=== PATIENT | male | born 1960 | race African-American/Black ===

== ENCOUNTER 2017-01-19 10:37 | Emergency (ER) | payer MEDICARE, OTHER ==
[~2017-01-19] VITALS: Ht 172.7 cm; Wt 85.7 kg
[~2017-01-19 10:37] MED LIST: ALLO300T; CRESTOR10 MG; DOCU-109 PO; HYDR25TA9; INSU100I17 SQ; INSU100I18 SQ; LISI10TA2; OXYC-317 PO; OXYC1TAB9 PO; RIVA10TA PO; SENN-22 PO; WARF7.5T48 PO
--- NOTE | 2017-01-19 12:19 | PHYS DOC ---
Past Medical History Past Medical History: Diabetes-Type II, DVT, High Cholesterol, Hypertension Additional Past Medical Histor: Gout, "Protein C Def.", PE Past Surgical History: Other Additional Past Surgical Histo: IVC Filter Alcohol Use: Heavy Drug Use: None Adult General Chief Complaint Chief Complaint: LOWER EXT PAIN HPI HPI Patient is a 56 year old -[place] male who presents with left knee pain and swelling. He states it started late Wednesday night/early Wednesday morning he denies any history of trauma. He states is just his knee that hurts and he tries to bend it. He denies any fevers chills nausea or vomiting or injury to the knee. Review of Systems Review of Systems Constitutional: Denies fever or chills [] Eyes: Denies change in visual acuity, redness, or eye pain [] HENT: Denies nasal congestion or sore throat [] Respiratory: Denies cough or shortness of breath [] Cardiovascular: No additional information not addressed in HPI [] GI: Denies abdominal pain, nausea, vomiting, bloody stools or diarrhea [] : Denies dysuria or hematuria [] Musculoskeletal: Denies back pain, positive for left knee pain Integument: Denies rash or skin lesions [] Neurologic: Denies headache, focal weakness or sensory changes [] Endocrine: Denies polyuria or polydipsia [] Current Medications Current Medications Current Medications Medications (Trade) Dose Ordered Sig/Donte Start Time Stop Time Status Last Admin Dose Admin Lidocaine/Sodium Bicarbonate (Buffered Lidocaine 1%) 20 ml 1X ONCE 01/19/17 13:00 01/19/17 13:01 DC 01/19/17 13:45 20 ML Morphine Sulfate 2 mg PRN Q15MIN PRN 01/19/17 13:00 01/20/17 12:59 01/19/17 15:09 2 MG Allergies Allergies Allergies Coded Allergies Type Severity Reaction Last Updated Verified No Known Drug Allergies 06/17/13 No Physical Exam Physical Exam Constitutional: Well developed, well nourished, no acute distress, non-toxic appearance. [] HENT: Normocephalic, atraumatic, bilateral external ears normal, oropharynx moist, no oral exudates, nose normal. [] Eyes: PERRLA, EOMI, conjunctiva normal, no discharge. [] Neck: Normal range of motion, no tenderness, supple, no stridor. [] Cardiovascular:Heart rate regular rhythm, no murmur [] Lungs & Thorax: Bilateral breath sounds clear to auscultation [] Abdomen: Bowel sounds normal, soft, no tenderness, no masses, no pulsatile masses. [] Skin: Warm, dry, no erythema, no rash. [] Back: No tenderness, no CVA tenderness. [] Extremities: Tenderness to palpation with an effusion with mild warmth around the left knee, no calf pain or tenderness, dorsal pedis pulse 2+ on the left lower ext. no cyanosis, no clubbing, ROM intact, no edema. [] Neurologic: Alert and oriented X 3, normal motor function, normal sensory function, no focal deficits noted. [] Psychologic: Affect normal, judgement normal, mood normal. [] Current Patient Data Vital Signs Vital Signs Date Time Temp Pulse Resp B/P (MAP) Pulse Ox O2 Delivery O2 Flow Rate FiO2 01/19/17 14:00 82 18 151/91 (111) 98 Room Air 01/19/17 10:56 98.4 98.4 Lab Values Laboratory Tests Test 01/19/17 12:30 White Blood Count 4.4 x10^3/uL (4.0-11.0) Red Blood Count 5.56 x10^6/uL (4.30-5.70) Hemoglobin 13.4 g/dL (13.0-17.5) Hematocrit 41.3 % (39.0-53.0) Mean Corpuscular Volume 74 fL (79-100) L Mean Corpuscular Hemoglobin 24 pg (25-35) L Mean Corpuscular Hemoglobin Concent 33 g/dL (31-37) Red Cell Distribution Width 14.7 % (11.5-14.5) H Platelet Count 115 x10^3/uL (140-400) L Neutrophils (%) (Auto) 63 % (31-73) Lymphocytes (%) (Auto) 29 % (24-48) Monocytes (%) (Auto) 6 % (0-9) Eosinophils (%) (Auto) 1 % (0-3) Basophils (%) (Auto) 1 % (0-3) Neutrophils # (Auto) 2.8 x10^3uL (1.8-7.7) Lymphocytes # (Auto) 1.3 x10^3/uL (1.0-4.8) Monocytes # (Auto) 0.3 x10^3/uL (0.0-1.1) Eosinophils # (Auto) 0.1 x10^3/uL (0.0-0.7) Basophils # (Auto) 0.0 x10^3/uL (0.0-0.2) Prothrombin Time 12.7 SEC (11.7-14.0) Prothrombin Time INR 1.0 (0.8-1.1) Sodium Level 138 mmol/L (136-145) Potassium Level 4.6 mmol/L (3.5-5.1) Chloride Level 101 mmol/L (98-107) Carbon Dioxide Level 27 mmol/L (21-32) Anion Gap 10 (6-14) Blood Urea Nitrogen 11 mg/dL (8-26) Creatinine 1.1 mg/dL (0.7-1.3) Estimated GFR (Cockcroft-Gault) 84.1 Glucose Level 294 mg/dL (70-99) H Calcium Level 9.3 mg/dL (8.5-10.1) Magnesium Level 2.2 mg/dL (1.8-2.4) Total Bilirubin 0.4 mg/dL (0.2-1.0) Direct Bilirubin 0.1 mg/dL (0.0-0.2) Aspartate Amino Transferase (AST) 44 U/L (15-37) H Alanine Aminotransferase (ALT) 58 U/L (16-63) Alkaline Phosphatase 115 U/L (46-116) Total Protein 7.8 g/dL (6.4-8.2) Albumin 4.0 g/dL (3.4-5.0) Laboratory Tests 01/19/17 12:30 Laboratory Tests 01/19/17 12:30 Microbiology 01/19/17 Gram Stain - Final, Complete Microbiology 01/19/17 Gram Stain - Final, Complete EKG EKG [] Radiology/Procedures Radiology/Procedures [facility] [address] [place], [place] [id number] IMAGING REPORT Signed PATIENT: MALACHI KHAN ACCOUNT: [id number] : 1960 LOCATION: ER AGE: 56 SEX: M EXAM STATUS: REG ER ORD. PHYSICIAN: HANNA BARRERA MD REASON: swelling PROCEDURE: VENOUS LOWER EXTREMITY LEFT Left lower extremity venous duplex ultrasound 01/19/2017 Indication: Left lower extremity edema [] Comparison study: None Discussion: Sonographic evaluation of the deep veins of left lower extremity was performed. This includes grayscale imaging and color duplex imaging with spectral analysis. No evidence of deep venous thrombosis is seen. Interrogated veins are compressible and demonstrate augmentable blood flow and color Doppler imaging. Limited evaluation of the knee demonstrates no gross effusion. Impression: No evidence of deep venous thrombosis involving the left lower extremity. DICTATED and SIGNED BY: LIANET TOSCANO MD DATE: 01/19/17 1322 CC: HANNA BARRERA MD; UNKNOWN PCP NAME ~ [facility] [address] [facility] [place], [place] [id number] IMAGING REPORT Signed PATIENT: MALACHI KHAN ACCOUNT: [id number] : 1960 LOCATION: ER AGE: 56 SEX: M EXAM STATUS: REG ER ORD. PHYSICIAN: HANNA BARRERA MD REASON: pain,pt denies injury,states ER removed fluid, unable to bend without pain. PROCEDURE: KNEE LEFT 3V Knee plain films Indication: Severe knee pain with joint fluid aspiration. Unable to move or bend. Possible arthritis per patient. Denies injury or trauma. Technique: 3 views of the left knee Comparison: None Findings: No acute fracture or dislocation. Small amount of suprapatellar effusion. There is tricompartmental osteophytes with narrowing of medial compartmental joint space. Impression: 1. No acute fractures or dislocation. 2. Mild tricompartmental osteoarthritis of the knee, more so within medial joint compartment. DICTATED and SIGNED BY: RANULFO CUTLER DO DATE: 01/19/17 1440 CC: HANNA BARRERA MD; UNKNOWN PCP NAME ~ Impressions: Left knee pain Left knee effusion Course & Med Decision Making Course & Med Decision Making Pertinent Labs and Imaging studies reviewed. (See chart for details) X-ray shows arthritis of the left knee and he does have a mild effusion. The knee did not show any white blood cells or organisms per Gram stain. X-ray shows mild arthritis, ultrasound does not show any blood clots. Patient is being discharged with [place]. He's follow-up with primary care physician. Return precautions given for worsening swelling, fevers, or other concerns. Dragon Disclaimer Dragon Disclaimer This electronic medical record was generated, in whole or in part, using a voice recognition dictation system. Arthrocentesis Indication: Left knee effusion Consent: Consent given by patient. Procedure: The left knee was positioned appropriately and the landmarks were identified. Local anesthesia was for lidocaine 3 mL. The area was then prepped and draped in the usual sterile fashion. A needle was then introduced into the joint space left knee and 3 mL of clear thin red fluid. A sterile dressing was then applied to the site. The patient tolerated the procedure well. Complications: none. Departure Departure Impression: Primary Impression: Knee pain Disposition: HOME, SELF-CARE Condition: STABLE Referrals: UNKNOWN PCP NAME (PCP) Patient Instructions: Knee Pain, [id number] Additional Instructions: Your left knee had fluid in it and I removed some this fluid and sent for analysis and it doesn't show any signs of infection. You will need to take it easy for the next several days and keep an eye on it. He can take [place] which is a narcotic pain medicine as needed for pain and he can use crutches to help reduce the burning on your knee. If your knee gets swollen and more painful, hot or you develop a fever nausea or other concerns please return back to emergency department for further evaluation and treatment. You follow up with primary care physician within a week. Scripts Hydrocodone/Apap 5-325 (NORCO 5-325 TABLET) 1 Each Tablet 1 TAB PO PRN Q6HRS Y for PAIN, #15 TAB 0 Refills Prov: HANNA BARRERA MD 01/19/17 Problem Qualifiers Primary Impression: Knee pain Chronicity: acute Laterality: left Qualified Codes: M25.562 - Pain in left knee HANNA BARRERA MD Jan 19, 2017 12:19
[2017-01-19 12:49] LABS: BASO % 1 % (0-3); EOS % 1 % (0-3); HEMATOCRIT 41.3 % (39.0-53.0); HEMOGLOBIN 13.4 g/dL (13.0-17.5); LYMPH # 1.3 x10^3/uL (1.0-4.8); LYMPH % 29 % (24-48); MEAN CORPUSCULAR HEMOGLOBIN 24 pg (25-35); MEAN CORPUSCULAR HGB CONC 33 g/dL (31-37); MEAN CORPUSCULAR VOLUME 74 fL (79-100); MONO % 6 % (0-9); NEUT % 63 % (31-73); PLATELET COUNT 115 x10^3/uL (140-400); RED BLOOD COUNT 5.56 x10^6/uL (4.30-5.70); RED CELL DISTRIBUTION WIDTH 14.7 % (11.5-14.5); WHITE BLOOD COUNT 4.4 x10^3/uL (4.0-11.0)
[2017-01-19 12:58] LABS: CALCIUM 9.3 mg/dL (8.5-10.1); CREATININE 1.1 mg/dL (0.7-1.3); GFR 84.1; POTASSIUM 4.6 mmol/L (3.5-5.1); PROTHROMBIN TIME PATIENT 12.7 SEC (11.7-14.0)
[2017-01-19] MEDS ORDERED: LIDOCAINE 1% / SOD BICARB 8.4% 20 ML VIAL. IJ ONE (13:00)
[2017-01-19 13:08] LABS: DIRECT BILIRUBIN 0.1 mg/dL (0.0-0.2); MAGNESIUM 2.2 mg/dL (1.8-2.4); TOTAL BILIRUBIN 0.4 mg/dL (0.2-1.0); TOTAL PROTEIN 7.8 g/dL (6.4-8.2)
[2017-01-19] MEDS: MORPHINE SULFATE 4 MG/ML DISP.SYRIN. IV/SQ PRN ×3 (13:20→15:09)
--- NOTE | 2017-01-19 13:27 | RAD ---
Left lower extremity venous duplex ultrasound 01/19/2017 Indication: Left lower extremity edema [] Comparison study: None Discussion: Sonographic evaluation of the deep veins of left lower extremity was performed. This includes grayscale imaging and color duplex imaging with spectral analysis. No evidence of deep venous thrombosis is seen. Interrogated veins are compressible and demonstrate augmentable blood flow and color Doppler imaging. Limited evaluation of the knee demonstrates no gross effusion. Impression: No evidence of deep venous thrombosis involving the left lower extremity.
--- NOTE | 2017-01-19 14:45 | RAD ---
Knee plain films Indication: Severe knee pain with joint fluid aspiration. Unable to move or bend. Possible arthritis per patient. Denies injury or trauma. Technique: 3 views of the left knee Comparison: None Findings: No acute fracture or dislocation. Small amount of suprapatellar effusion. There is tricompartmental osteophytes with narrowing of medial compartmental joint space. Impression: 1. No acute fractures or dislocation. 2. Mild tricompartmental osteoarthritis of the knee, more so within medial joint compartment.
[2017-01-19 15:30] VITALS: BP 119/68
[2017-01-19] MEDS ORDERED: HYDR-971 PO (15:31)
== END 2017-01-19 15:47 | disposition home or self-care (01) ==
LOC: ER 10:37
DX: M25.562 Pain in left knee (principal); M25.462 Effusion, left knee; M17.9 Osteoarthritis of knee, unspecified; I10 Essential (primary) hypertension; E11.9 Type 2 diabetes mellitus without complications; E78.00 Pure hypercholesterolemia, unspecified; M10.9 Gout, unspecified; Z86.711 Personal history of pulmonary embolism
CPT/HCPCS: 20610; 36415; 73562; 80048; 80076; 83735; 85025; 85610; 87071; 87075; 87205; 89060; 93971; 96374; 96376; 99285; J2270

== ENCOUNTER 2017-02-01 08:58 | Emergency (ER) | payer MEDICARE, OTHER ==
[~2017-02-01] VITALS: Ht 172.7 cm; Wt 85.7 kg
[~2017-02-01 08:58] MED LIST changes: +HYDR-971 PO
[2017-02-01] MEDS ORDERED: HYDROcodone/APAP 5/325MG 1 TAB TABLET PO ONE (09:30)
[2017-02-01] MEDS ORDERED: HYDR-2758 PO (09:47)
--- NOTE | 2017-02-01 09:47 | PHYS DOC ---
Past Medical History Past Medical History: Diabetes-Type II, DVT, High Cholesterol, Hypertension Additional Past Medical Histor: Gout, "Protein C Def.", PE Past Surgical History: Other Additional Past Surgical Histo: IVC Filter Alcohol Use: Heavy Drug Use: None Adult General Chief Complaint Chief Complaint: LOWER EXT PAIN HPI HPI 56-year-old male presenting to the emergency department today with knee pain in the left knee and hip pain. The pain is been present for 2 weeks. It is worse with walking and improved with rest. It is mild nonradiating intermittent. He has a history of DVT and has an IVC filter in place. He was seen for this same pain 2 weeks ago for which he had x-rays that were unremarkable and ultrasound that was negative and an arthrocentesis was performed which did not show any sign evidence of septic arthritis. I reviewed the patient's culture which was negative. Gram stain negative. Positive for hemarthrosis possibly 2/2 procedure. Review of systems is negative for fevers chills chest pain shortness of breath abdominal pain nausea vomiting. All other review of systems is negative unless otherwise noted in history of present illness. ED course: 56-year-old male presenting to the emergency department with left knee and hip pain. Vital signs afebrile with normal heart rate. Physical examination findings showed mild effusion present. Not warm to touch. No erythema of the overlying skin. Mild pain with passive range of motion of the knee and hip. Patient is able to ambulate in the emergency department. X-rays of the hip and knee were unremarkable. Ultrasound of the vein shows DVT bilaterally. I discussed case with Dr. Marshall 1:05 PM who stated the patient was not eligible for lysis or thrombectomy. He recommended anticoagulation with compression socks. I had a long discussion with the patient about admission versus discharge. Collectively using shared decision making we decided to discharge the patient with oral anticoagulants and close follow-up with his primary care doctor. I also referred him to Dr. Marshall in the next 2 weeks. Review of Systems Review of Systems SEE ABOVE. Current Medications Current Medications Current Medications Medications (Trade) Dose Ordered Sig/Donte Start Time Stop Time Status Last Admin Dose Admin Acetaminophen/ Hydrocodone Bitart (Lortab 5/325) 2 tab 1X ONCE 02/01/17 09:30 02/01/17 09:31 DC 02/01/17 09:42 2 TAB Hydromorphone HCl (Dilaudid) 0.5 mg PRN Q30MIN PRN 02/01/17 12:45 02/01/17 13:03 0.5 MG Morphine Sulfate 4 mg 1X ONCE 02/01/17 10:45 02/01/17 10:46 DC 02/01/17 10:47 4 MG Ondansetron HCl (Zofran) 4 mg 1X ONCE 02/01/17 12:45 02/01/17 12:46 DC 02/01/17 13:03 4 MG Allergies Allergies Allergies Coded Allergies Type Severity Reaction Last Updated Verified No Known Drug Allergies 06/17/13 No Physical Exam Physical Exam SEE ABOVE Constitutional: Well developed, well nourished, no acute distress, non-toxic appearance. [] HENT: Normocephalic, atraumatic, bilateral external ears normal, oropharynx moist, no oral exudates, nose normal. [] Eyes: PERRLA, EOMI, conjunctiva normal, no discharge. [] Neck: Normal range of motion, no tenderness, supple, no stridor. [] Cardiovascular:Heart rate regular rhythm, no murmur [] Lungs & Thorax: Bilateral breath sounds clear to auscultation [] Abdomen: Bowel sounds normal, soft, no tenderness, no masses, no pulsatile masses. [] Skin: Warm, dry, no erythema, no rash. [] Back: No tenderness, no CVA tenderness. [] Extremities: See above. Patient has palpable pulse in the left foot with 2 second cap refill. Normal neurovascular status. Otherwise the remainder the extremities are nontender with normal range of motion and normal neurovascular status. Neurologic: Alert and oriented X 3, normal motor function, normal sensory function, no focal deficits noted. [] Psychologic: Affect normal, judgement normal, mood normal. [] Current Patient Data Vital Signs Vital Signs Date Time Temp Pulse Resp B/P (MAP) Pulse Ox O2 Delivery O2 Flow Rate FiO2 02/01/17 13:04 65 17 140/86 (104) 96 Room Air 02/01/17 09:08 97.9 97.9 Lab Values Laboratory Tests Test 02/01/17 12:40 White Blood Count 4.5 x10^3/uL (4.0-11.0) Red Blood Count 5.28 x10^6/uL (4.30-5.70) Hemoglobin 12.5 g/dL (13.0-17.5) L Hematocrit 39.6 % (39.0-53.0) Mean Corpuscular Volume 75 fL (79-100) L Mean Corpuscular Hemoglobin 24 pg (25-35) L Mean Corpuscular Hemoglobin Concent 32 g/dL (31-37) Red Cell Distribution Width 14.5 % (11.5-14.5) Platelet Count 129 x10^3/uL (140-400) L Neutrophils (%) (Auto) 57 % (31-73) Lymphocytes (%) (Auto) 33 % (24-48) Monocytes (%) (Auto) 8 % (0-9) Eosinophils (%) (Auto) 1 % (0-3) Basophils (%) (Auto) 1 % (0-3) Neutrophils # (Auto) 2.6 x10^3uL (1.8-7.7) Lymphocytes # (Auto) 1.5 x10^3/uL (1.0-4.8) Monocytes # (Auto) 0.4 x10^3/uL (0.0-1.1) Eosinophils # (Auto) 0.1 x10^3/uL (0.0-0.7) Basophils # (Auto) 0.0 x10^3/uL (0.0-0.2) Sodium Level 138 mmol/L (136-145) Potassium Level 4.0 mmol/L (3.5-5.1) Chloride Level 102 mmol/L (98-107) Carbon Dioxide Level 29 mmol/L (21-32) Anion Gap 7 (6-14) Blood Urea Nitrogen 7 mg/dL (8-26) L Creatinine 1.1 mg/dL (0.7-1.3) Estimated GFR (Cockcroft-Gault) 84.1 Glucose Level 222 mg/dL (70-99) H Calcium Level 9.1 mg/dL (8.5-10.1) Laboratory Tests 02/01/17 12:40 Laboratory Tests 02/01/17 12:40 EKG EKG [] Radiology/Procedures Radiology/Procedures [] Course & Med Decision Making Course & Med Decision Making Pertinent Labs and Imaging studies reviewed. (See chart for details) [] Dragon Disclaimer Dragon Disclaimer This electronic medical record was generated, in whole or in part, using a voice recognition dictation system. Departure Departure Impression: Primary Impression: DVT (deep venous thrombosis) Additional Impressions: Left knee pain Left hip pain Disposition: 01 HOME, SELF-CARE Condition: STABLE Referrals: UNKNOWN PCP NAME (PCP) SHANELLE NOVOA II, MD,KAYLEN Krishna MD Patient Instructions: Knee Pain Additional Instructions: Thank you for allowing us to participate in your care today. I am referring you to a physical therapist locally. I recommended he see them within 2-3 days. I also put information down in your discharge paperwork for our orthopedic surgeon (Lucien) if your knee pain continues for possible referral. Followup with your primary care physician in 3 days if your symptoms do not improve. Call your Primary Doctor tomorrow and inform them of your visit today. If you do not have a primary care provider you can ask for a list of our primary care providers. Return to the emergency department you have any new or concerning findings. This should be evaluated by the primary care physician and any necessary consulting services for continued management within a few days after discharge. Return to emergency room if you have any new or concerning symptoms including but not limited to fever, chills, nausea, vomiting, intractable pain, any new rashes, chest pain, shortness of air, uncontrolled bleeding, difficulty breathing, and/or vision loss. You may have been prescribed medication that can change in your level of thinking and ability to operate machinery. These medications include hydrocodone and Ativan. Also, Benadryl has been known to do this as well. Be sure to check with your pharmacist and ask if the medications you've prescribed can affect your level of consciousness. I recommend not operating heavy machinery or driving while on medication such as these. Scripts Rivaroxaban (XARELTO) 15 Mg Tablet 15 MG PO BID, #28 TAB Prov: MIKY PANDEY MD 02/01/17 Hydrocodone Bit/Acetaminophen (HYDROCODONE-APAP 5-325 ) 1 Each Tablet 1 TAB PO PRN Q6HRS Y for PAIN, #15 TAB 0 Refills Be careful as this medication may cause you to be drowsy or tired. Do not drive on this medication. Prov: MIKY PANDEY MD 02/01/17 Problem Qualifiers MIKY PANDEY MD Feb 01, 2017 09:47
--- NOTE | 2017-02-01 09:49 | RAD ---
Examination: 2 views of the left hip and 3 views of the left knee History: History of left knee pain, left hip pain Comparison: None available Findings: The left femoral head is in the acetabulum. Mild degenerative changes identified in the left hip joint. Linear calcification identified in the medial aspect of the mid thigh probably vascular calcification. Mild joint space loss identified in the medial compartment of the knee. There is no acute fracture identified. There is a small 1.8 cm exophytic bony density identified posterior to posterior the distal aspect of the femur probably a small exostosis. Impression: 1. No acute osseous findings. 2. Mild degenerative changes medial compartment of the knee and left hip joint.
[2017-02-01] MEDS ORDERED: MORPHINE SULFATE 4 MG/ML DISP.SYRIN. IM ONE (10:45)
--- NOTE | 2017-02-01 12:28 | RAD ---
Examination: Ultrasound bilateral lower extremity venous system f History: history of left leg pain comparison: None available Technique: Grayscale, color Doppler 2-D, spectral waveform analysis of the bilateral lower extremity venous system were performed Findings: There is partial echogenicity identified in the right common femoral vein likely thrombus. There is occlusive thrombus identified in the right superficial femoral vein, popliteal vein, posterior tibialis vein. There is echogenicity identified in the left deep femoral vein likely thrombus. The visualized left common femoral vein, superficial femoral vein, popliteal vein and calf veins are patent. Impression: 1. Occlusive thrombus identified in the right superficial femoral vein, popliteal vein posterior tibialis vein. Partial thrombosis identified in the right common femoral vein. 2. Occlusive thrombus identified in the left deep femoral vein.
[2017-02-01] MEDS ORDERED: HYDROmorphone 2 MG/ML VIAL IV PRN (12:45)
[2017-02-01] MEDS ORDERED: ONDANSETRON PF 4 MG/2 ML VIAL. IV ONE (12:45)
[2017-02-01 12:52] LABS: BASO % 1 % (0-3); EOS % 1 % (0-3); HEMATOCRIT 39.6 % (39.0-53.0); HEMOGLOBIN 12.5 g/dL (13.0-17.5); LYMPH # 1.5 x10^3/uL (1.0-4.8); LYMPH % 33 % (24-48); MEAN CORPUSCULAR HEMOGLOBIN 24 pg (25-35); MEAN CORPUSCULAR HGB CONC 32 g/dL (31-37); MEAN CORPUSCULAR VOLUME 75 fL (79-100); MONO % 8 % (0-9); NEUT % 57 % (31-73); PLATELET COUNT 129 x10^3/uL (140-400); RED BLOOD COUNT 5.28 x10^6/uL (4.30-5.70); RED CELL DISTRIBUTION WIDTH 14.5 % (11.5-14.5); WHITE BLOOD COUNT 4.5 x10^3/uL (4.0-11.0)
[2017-02-01 12:59] LABS: CALCIUM 9.1 mg/dL (8.5-10.1); CREATININE 1.1 mg/dL (0.7-1.3); GFR 84.1
[2017-02-01 13:04] VITALS: BP 140/86
[2017-02-01 13:05] LABS: INR 1.1 (0.8-1.1); PROTHROMBIN TIME PATIENT 13.6 SEC (11.7-14.0)
[2017-02-01] MEDS ORDERED: RIVA15TA PO (13:22)
--- NOTE | 2017-02-05 15:27 | RAD ---
Pelvis with left hip, 3 views, 02/01/2017: History: Hip pain No fracture or dislocation is identified. The hip joints are well-maintained with only mild marginal spurring. There are elongated calcifications in the medial aspects of both upper thighs. Arterial calcifications are noted. IMPRESSION: No acute bony abnormality is detected.
== END 2017-02-01 13:33 | disposition home or self-care (01) ==
LOC: ER 08:58
DX: I82.402 Acute embolism and thrombosis of unspecified deep veins of left lower extremity (principal); M25.562 Pain in left knee; M25.552 Pain in left hip; E11.9 Type 2 diabetes mellitus without complications; I10 Essential (primary) hypertension; E78.00 Pure hypercholesterolemia, unspecified; M10.9 Gout, unspecified; Z86.711 Personal history of pulmonary embolism
CPT/HCPCS: 36415; 73502; 73562; 80048; 85025; 85610; 85730; 93970; 96372; 96374; 96375; 99285; J1170; J2270; J2405

== ENCOUNTER 2017-02-15 01:22 | Emergency (ER) | payer MEDICARE, OTHER ==
[~2017-02-15] VITALS: Ht 172.7 cm; Wt 82.6 kg
[~2017-02-15 01:22] MED LIST changes: +HYDR-2758 PO; +RIVA15TA PO
[2017-02-15 01:48] VITALS: BP 133/72
[2017-02-15] MEDS ORDERED: HYDR-971 PO (02:38)
--- NOTE | 2017-02-15 02:39 | PHYS DOC ---
Past Medical History Past Medical History: Diabetes-Type II, DVT, High Cholesterol, Hypertension Additional Past Medical Histor: Gout, "Protein C Def.", PE Past Surgical History: Other Additional Past Surgical Histo: IVC Filter Smoking: Quit Greater Than 1 Year Alcohol Use: Heavy Drug Use: None Adult General Chief Complaint Chief Complaint: KNEE INJURY HPI HPI Patient is a 56 year old male who presents with left knee pain. He was seen here on January 19 had a ultrasound done, x-ray done, left knee aspiration with fluid sent. Culture urinalysis was negative. He then returned on February 01 had ultrasound done then that showed a clot. He has known DVT in the right leg with an IVC filter in place. Consultation was made with Dr. Marshall, vascular surgeon at that visit and the patient was not eligible for lysis or thrombectomy. He was placed on Xarelto, which patient states he has been compliant with. He however was not aware that "I was suppose to make an appointment with the doctor". He returns for left knee pain, swelling and that he is almost out of his pain medications. No fever. No trauma. Review of Systems Review of Systems Constitutional: Denies fever or chills Eyes: Denies change in visual acuity, redness, or eye pain HENT: Denies nasal congestion or sore throat Respiratory: Denies cough or shortness of breath Cardiovascular: No chest pain GI: Denies abdominal pain, nausea, vomiting, bloody stools or diarrhea : Denies dysuria or hematuria Musculoskeletal: Denies back pain; POS left knee pain. Integument: Denies rash or skin lesions Neurologic: Denies headache, focal weakness or sensory changes Allergies Allergies Allergies Coded Allergies Type Severity Reaction Last Updated Verified No Known Drug Allergies 06/17/13 No Physical Exam Physical Exam Constitutional: Well developed, well nourished, no acute distress, non-toxic appearance. HENT: Normocephalic, atraumatic, bilateral external ears normal, oropharynx moist, no oral exudates, nose normal. Eyes: PERRLA, EOMI, conjunctiva normal, no discharge. Neck: Normal range of motion, no tenderness, supple, no stridor. Cardiovascular:Heart rate regular rhythm, no murmur Lungs & Thorax: Bilateral breath sounds clear to auscultation Abdomen: Bowel sounds normal, soft, no tenderness, no masses, no pulsatile masses. Skin: Warm, dry, no erythema, no rash. Back: No tenderness, no CVA tenderness. Extremities: Right leg with edema and diffuse swelling. NVI distally. left leg with small knee effusion; ROM intact; no warmth; no skin wounds or lesions. NVI distally. Neurologic: Alert and oriented X 3, normal motor function, normal sensory function, no focal deficits noted. Current Patient Data Vital Signs Vital Signs Date Time Temp Pulse Resp B/P (MAP) Pulse Ox O2 Delivery O2 Flow Rate FiO2 02/15/17 01:48 97.9 72 20 99 Room Air 97.9 Course & Med Decision Making Course & Med Decision Making Reviewed recent visits and radiographic tests. Patient is very small effusion here, may even be a hemarthrosis now secondary to the Xarelto use. No evidence of a septic joint. Again the range of motion without difficulty. Reviewed with him his instructions from the last visit. I have typed out and highlighted for him Dr. Marshall's information. We'll renew a small amount of his [place] that he also has not made an appointment with his primary care doctor since these ER visits. Stressed the importance of that appointment to be made as well. I have spoken with the patient and/or caregivers. I have explained the patient' s condition, diagnosis and treatment plan based on the information available to me at this time. I have answered the patient's and/or caregiver's questions and addressed any concerns. The patient and/or caregivers have as good an understanding of the patient's diagnosis, condition and treatment plan as can be expected at this point. The patient's condition is stable and appropriate for discharge from the emergency department. The patient will pursue further outpatient evaluation with the primary care physician or other designated or consulting physician as outlined in the discharge instructions. The patient and/or caregivers are agreeable to this plan of care and follow-up instructions have been explained in detail. The patient and/or caregivers have received these instructions in written format and have expressed an understanding of the discharge instructions. The patient and/or caregivers are aware that any significant change in condition or worsening of symptoms should prompt an immediate return to this or the closest emergency department or a call to 911. Robyn Disclaimer Dragon Disclaimer This electronic medical record was generated, in whole or in part, using a voice recognition dictation system. Departure Departure Impression: Primary Impression: Knee pain, left Disposition: HOME, SELF-CARE Condition: STABLE Referrals: UNKNOWN PCP NAME (PCP) Patient Instructions: Knee Effusion Additional Instructions: You need to call Dr. Marshall in the morning. [phone]. Call to set up an appointment with him IN THE AM regarding your blood clots and your leg pain and swelling. You also need to call your primary care physician for a recheck. Scripts Hydrocodone/Apap 5-325 (NORCO 5-325 TABLET) 1 Each Tablet 1-2 TAB PO Q4-6HRS, #10 TAB Prov: SALMA PALENCIA MD 02/15/17 Problem Qualifiers Primary Impression: Knee pain, left Chronicity: chronic Qualified Codes: M25.562 - Pain in left knee; G89.29 - Other chronic pain SALMA PALENCIA MD Feb 15, 2017 02:39
[2017-02-15] MEDS ORDERED: HYDROcodone/APAP 5/325MG 1 TAB TABLET PO ONE (04:00)
== END 2017-02-15 03:30 | disposition home or self-care (01) ==
LOC: ER 01:22
DX: M25.562 Pain in left knee (principal); G89.29 Other chronic pain; E11.9 Type 2 diabetes mellitus without complications; E78.00 Pure hypercholesterolemia, unspecified; I10 Essential (primary) hypertension; M10.9 Gout, unspecified; Z86.718 Personal history of other venous thrombosis and embolism; Z87.891 Personal history of nicotine dependence; Z86.711 Personal history of pulmonary embolism; Z95.828 Presence of other vascular implants and grafts
CPT/HCPCS: 99283

== ENCOUNTER 2017-05-11 08:15 | Emergency (ER) | payer MEDICARE, OTHER ==
[~2017-05-11] VITALS: Ht 175.3 cm; Wt 80.7 kg
[2017-05-11] MEDS ORDERED: oxyCODONE/APAP 10/325 1 TAB TABLET PO ONE (09:00)
--- NOTE | 2017-05-11 09:06 | PHYS DOC ---
Past Medical History Past Medical History: Diabetes-Type II, DVT, High Cholesterol, Hypertension Additional Past Medical Histor: Gout, "Protein C Def.", PE Past Surgical History: Other Additional Past Surgical Histo: IVC Filter, hemmorhoidectomy Alcohol Use: Heavy Additional Information: beer daily Drug Use: Cocaine Social History Narrative: last used yesterday Adult General Chief Complaint Chief Complaint: LOWER EXT PAIN HPI HPI Patient is a 56 year old male who presents with complaint of left lower extremity pain. Patient states his pain started 2-3 days ago and has progressively worsened during that time. Patient denies any known trauma to the area. The patient states he has history of DVT and is currently on Xarelto. Patient is concerned that his pain may be due to another blood clot that has formed. The patient states that the pain stays in the left upper thigh near the groin and hip. Patient states that the pain worsens with movement and when the area is touched. Patient's had no swelling or erythema in this area. The patient states that he is on chronic narcotic therapy at home and takes Percocet 10 mg. Patient states he has been out of this medication over the past week. Patient states he takes this medication for pain in his right lower extremity which has chronic blood clots as well as for chronic gout. Patient states that he has not had similar pain in the affected area as he does today. Patient rates his pain as 10 out of 10. Review of Systems Review of Systems Constitutional: Denies fever or chills [] Eyes: Denies change in visual acuity, redness, or eye pain [] HENT: Denies nasal congestion or sore throat [] Respiratory: Denies cough or shortness of breath [] Cardiovascular: Denies chest pain or edema[] GI: Denies abdominal pain, nausea, vomiting, bloody stools or diarrhea [] : Denies dysuria or hematuria [] Musculoskeletal: Left upper thigh pain[] Integument: Denies rash or skin lesions [] Neurologic: Denies headache, focal weakness or sensory changes [] All other systems were reviewed and found to be within normal limits, except as documented in this note. Current Medications Current Medications Current Medications Medications (Trade) Dose Ordered Sig/Donte Start Time Stop Time Status Last Admin Dose Admin Oxycodone/ Acetaminophen (Percocet 10/325) 1 tab 1X ONCE 05/11/17 09:00 05/11/17 09:02 DC 05/11/17 09:13 1 TAB Allergies Allergies Allergies Coded Allergies Type Severity Reaction Last Updated Verified No Known Drug Allergies 06/17/13 No Physical Exam Physical Exam Constitutional: Alert, afebrile, appears in mild to moderate discomfort. [] HENT: Normocephalic, atraumatic, bilateral external ears normal, oropharynx moist, no oral exudates, nose normal. [] Eyes: PERRLA, EOMI, conjunctiva normal, no discharge. [] Neck: Normal range of motion, no tenderness, supple, no stridor. [] Cardiovascular:Heart rate regular rhythm, no murmur [] Lungs & Thorax: Bilateral breath sounds clear to auscultation [] Abdomen: Bowel sounds normal, soft, no tenderness, no masses, no pulsatile masses. [] Skin: Warm, dry, no erythema, no rash. [] Back: No tenderness, no CVA tenderness. [] Extremities: No obvious swelling, erythema, or deformity to left upper leg, tenderness palpation along anterior and medial aspect of proximal left thigh, no cyanosis, no clubbing, ROM intact, no edema. [] Neurologic: Alert and oriented X 3, normal motor function, normal sensory function, no focal deficits noted. [] Current Patient Data Vital Signs Vital Signs Date Time Temp Pulse Resp B/P (MAP) Pulse Ox O2 Delivery O2 Flow Rate FiO2 05/11/17 09:13 98 Room Air 05/11/17 08:27 99.3 99 20 138/84 (102) 99.3 Lab Values Laboratory Tests Test 05/11/17 09:00 White Blood Count 7.7 x10^3/uL (4.0-11.0) Red Blood Count 5.54 x10^6/uL (4.30-5.70) Hemoglobin 13.0 g/dL (13.0-17.5) Hematocrit 41.0 % (39.0-53.0) Mean Corpuscular Volume 74 fL (79-100) L Mean Corpuscular Hemoglobin 24 pg (25-35) L Mean Corpuscular Hemoglobin Concent 32 g/dL (31-37) Red Cell Distribution Width 14.1 % (11.5-14.5) Platelet Count 122 x10^3/uL (140-400) L Neutrophils (%) (Auto) 73 % (31-73) Lymphocytes (%) (Auto) 20 % (24-48) L Monocytes (%) (Auto) 7 % (0-9) Eosinophils (%) (Auto) 0 % (0-3) Basophils (%) (Auto) 1 % (0-3) Neutrophils # (Auto) 5.6 x10^3uL (1.8-7.7) Lymphocytes # (Auto) 1.5 x10^3/uL (1.0-4.8) Monocytes # (Auto) 0.5 x10^3/uL (0.0-1.1) Eosinophils # (Auto) 0.0 x10^3/uL (0.0-0.7) Basophils # (Auto) 0.1 x10^3/uL (0.0-0.2) Sodium Level 136 mmol/L (136-145) Potassium Level 4.5 mmol/L (3.5-5.1) Chloride Level 98 mmol/L (98-107) Carbon Dioxide Level 24 mmol/L (21-32) Anion Gap 14 (6-14) Blood Urea Nitrogen 13 mg/dL (8-26) Creatinine 1.1 mg/dL (0.7-1.3) Estimated GFR (Cockcroft-Gault) 84.1 Glucose Level 285 mg/dL (70-99) H Calcium Level 8.5 mg/dL (8.5-10.1) Laboratory Tests 05/11/17 09:00 Laboratory Tests 05/11/17 09:00 EKG EKG Not performed[] Radiology/Procedures Radiology/Procedures [facility] [address] [place], [place] [id number] IMAGING REPORT Signed PATIENT: MALACHI KHAN ACCOUNT: [id number] : 1960 LOCATION: ER AGE: 56 SEX: M EXAM STATUS: REG ER ORD. PHYSICIAN: DEBBIE GUTIERREZ MD REASON: left hip and groin pain PROCEDURE: HIP LEFT 2V WITH PELVIS Indication: Left hip and groin pain. Technique: 2 views of the left hip and an AP view the pelvis are submitted for review. No comparison is available. Findings: Bony pelvis is intact. Atherosclerotic calcifications and calcified phleboliths are noted in the pelvis. There is mild osteoarthritis in each hip. There is no fracture or dislocation in the left hip. There are vascular calcifications. Impression: Mild osteoarthritis in both hips. DICTATED and SIGNED BY: RAMONE FRIAS MD DATE: 05/11/17956 CC: DEBBIE GUTIERREZ MD; NO PCP ~ [facility] [address] [place] [address] IMAGING REPORT Signed PATIENT: MALACHI KHAN ACCOUNT: [id number] : 1960 LOCATION: ER AGE: 56 SEX: M EXAM STATUS: REG ER ORD. PHYSICIAN: DEBBIE GUTIERREZ MD REASON: left lower extremity pain, history of DVT PROCEDURE: VENOUS LOWER EXTREMITY LEFT Indication: Left leg pain. Technique: Grayscale, color-flow, and spectral waveform analysis was performed. Findings: The exam is positive for occlusive thrombus from the popliteal vein to the common femoral vein. Vessels are not compressible and there is no color flow. In addition, contralateral common femoral vein is evaluated. There is nonocclusive thrombus in the right common femoral vein. The remainder of the right lower extremity was not evaluated. Impression: 1. Exam is positive for occlusive thrombus from the left popliteal vein through the common femoral vein. 2. There is nonocclusive thrombus in the right common femoral vein. The remainder of the right lower extremity was not evaluated. DICTATED and SIGNED BY: RAOMNE FRIAS MD DATE: 05/11/17958 CC: DEBBIE GUTIERREZ MD; NO PCP ~ [] Course & Med Decision Making Course & Med Decision Making Pertinent Labs and Imaging studies reviewed. (See chart for details) [] Dragon Disclaimer Dragon Disclaimer This electronic medical record was generated, in whole or in part, using a voice recognition dictation system. Departure Departure Impression: Primary Impression: DVT (deep venous thrombosis) Disposition: 01 HOME, SELF-CARE Condition: IMPROVED Referrals: UNKNOWN PCP NAME (PCP) Patient Instructions: Deep Vein Thrombosis Additional Instructions: Follow-up to primary doctor in 3-5 days for reevaluation. Be sure to take your Xarelto as prescribed. Return to the emergency department for any worsening symptoms. Scripts Oxycodone/Apap 10-325 (PERCOCET 10-325 MG TABLET) 1 Each Tablet 1 TAB PO Q4-6HRS Y for PAIN, #15 TAB Prov: DEBBIE GUTIERREZ MD 05/11/17 Problem Qualifiers Primary Impression: DVT (deep venous thrombosis) DVT location: lower extremity Affected thrombotic vein of extremity: femoral Chronicity: chronic Laterality: left Qualified Codes: I82.512 - Chronic embolism and thrombosis of left femoral vein DEBBIE GUTIERREZ MD May 11, 2017 09:06
[2017-05-11 09:14] LABS: BASO # 0.1 x10^3/uL (0.0-0.2); BASO % 1 % (0-3); EOS % 0 % (0-3); LYMPH # 1.5 x10^3/uL (1.0-4.8); LYMPH % 20 % (24-48); MEAN CORPUSCULAR HEMOGLOBIN 24 pg (25-35); MEAN CORPUSCULAR HGB CONC 32 g/dL (31-37); MEAN CORPUSCULAR VOLUME 74 fL (79-100); MONO % 7 % (0-9); NEUT % 73 % (31-73); PLATELET COUNT 122 x10^3/uL (140-400); RED BLOOD COUNT 5.54 x10^6/uL (4.30-5.70); RED CELL DISTRIBUTION WIDTH 14.1 % (11.5-14.5); WHITE BLOOD COUNT 7.7 x10^3/uL (4.0-11.0)
[2017-05-11 09:37] LABS: CALCIUM 8.5 mg/dL (8.5-10.1); CREATININE 1.1 mg/dL (0.7-1.3); GFR 84.1
[2017-05-11 09:43] LABS: POTASSIUM 4.5 mmol/L (3.5-5.1)
--- NOTE | 2017-05-11 10:02 | RAD ---
Indication: Left hip and groin pain. Technique: 2 views of the left hip and an AP view the pelvis are submitted for review. No comparison is available. Findings: Bony pelvis is intact. Atherosclerotic calcifications and calcified phleboliths are noted in the pelvis. There is mild osteoarthritis in each hip. There is no fracture or dislocation in the left hip. There are vascular calcifications. Impression: Mild osteoarthritis in both hips.
--- NOTE | 2017-05-11 10:04 | RAD ---
Indication: Left leg pain. Technique: Grayscale, color-flow, and spectral waveform analysis was performed. Findings: The exam is positive for occlusive thrombus from the popliteal vein to the common femoral vein. Vessels are not compressible and there is no color flow. In addition, contralateral common femoral vein is evaluated. There is nonocclusive thrombus in the right common femoral vein. The remainder of the right lower extremity was not evaluated. Impression: 1. Exam is positive for occlusive thrombus from the left popliteal vein through the common femoral vein. 2. There is nonocclusive thrombus in the right common femoral vein. The remainder of the right lower extremity was not evaluated.
[2017-05-11] MEDS ORDERED: OXYC-328 PO (10:21)
[2017-05-11 10:23] VITALS: BP 132/75
== END 2017-05-11 10:30 | disposition home or self-care (01) ==
LOC: ER 08:15
DX: I82.512 Chronic embolism and thrombosis of left femoral vein (principal); E11.9 Type 2 diabetes mellitus without complications; E78.00 Pure hypercholesterolemia, unspecified; I10 Essential (primary) hypertension; M10.9 Gout, unspecified; F14.10 Cocaine abuse, uncomplicated; Z86.711 Personal history of pulmonary embolism; Z79.01 Long term (current) use of anticoagulants
CPT/HCPCS: 36415; 73502; 80048; 85025; 93971; 99285-25

== ENCOUNTER 2017-10-28 00:39 | Inpatient (IN) | payer OTHER, MEDICARE ==
[2017-10-28 01:27] LABS: ADD MAN DIFF? NO
[2017-10-28 01:30] LABS: BASO % 1 % (0-3); EOS % 1 % (0-3); HEMATOCRIT 38.8 % (39.0-53.0); HEMOGLOBIN 12.6 g/dL (13.0-17.5); LYMPH # 1.7 x10^3/uL (1.0-4.8); LYMPH % 35 % (24-48); MEAN CORPUSCULAR HEMOGLOBIN 24 pg (25-35); MEAN CORPUSCULAR HGB CONC 32 g/dL (31-37); MEAN CORPUSCULAR VOLUME 73 fL (79-100); MONO # 0.4 x10^3/uL (0.0-1.1); MONO % 8 % (0-9); NEUT # 2.6 x10^3uL (1.8-7.7); NEUT % 55 % (31-73); PLATELET COUNT 140 x10^3/uL (140-400); RED BLOOD COUNT 5.31 x10^6/uL (4.30-5.70); RED CELL DISTRIBUTION WIDTH 14.2 % (11.5-14.5); WHITE BLOOD COUNT 4.7 x10^3/uL (4.0-11.0)
[2017-10-28 01:31] LABS: BILIRUBIN,URINE NEGATIVE (NEG); CLARITY,URINE CLEAR; COLOR,URINE YELLOW; GLUCOSE,URINE >=1000 mg/dL (NEG); NITRITE,URINE NEGATIVE (NEG); PROTEIN,URINE NEGATIVE (NEG-TRACE); UROBILINOGEN,URINE 0.2 mg/dL (0.2 mg/dL)
[2017-10-28 01:38] LABS: ANION GAP 9 (6-14); BLOOD UREA NITROGEN 12 mg/dL (8-26); BUN/CREATININE RATIO 10 (6-20); CALCIUM 9.4 mg/dL (8.5-10.1); CARBON DIOXIDE 25 mmol/L (21-32); CHLORIDE 101 mmol/L (98-107); CREATININE 1.2 mg/dL (0.7-1.3); GFR 76.1; GLUCOSE 342 mg/dL (70-99); SODIUM 135 mmol/L (136-145)
[2017-10-28 01:42] LABS: BACTERIA,URINE 0 /HPF (0-FEW); RBC,URINE 0 /HPF (0-2); WBC,URINE OCC /HPF (0-4)
[2017-10-28 01:43] LABS: SQUAMOUS EPITHELIAL CELL,UR OCC /LPF
[2017-10-28 01:44] LABS: ALK PHOS 100 U/L (46-116); ALT (SGPT) 36 U/L (16-63); AST (SGOT) 20 U/L (15-37); LIPASE 283 U/L (73-393); TOTAL BILIRUBIN 0.4 mg/dL (0.2-1.0)
[2017-10-28 01:47] LABS: TROPONINI < 0.017 ng/mL (0.000-0.055)
[2017-10-28 01:53] LABS: INR 1.1 (0.8-1.1); PROTHROMBIN TIME PATIENT 13.3 SEC (11.7-14.0)
[2017-10-28] MEDS: fentaNYL PF VIAL 100 MCG/2 ML VIAL IV (02:08)
[2017-10-28] MEDS ORDERED: CONTRAST GIVEN. MC (02:15)
[2017-10-28] MEDS: IOHEXOL 300 MG/ML 100ML VIAL. IV (02:27)
[2017-10-28] MEDS: oxyCODONE/APAP 10/325 1 TAB TABLET PO ×3 (03:29→20:06)
[2017-10-28] MEDS ORDERED: HEPARIN for IV BOLUS 10,000 UNIT/10 ML VIAL. IV ×2 (03:45)
[2017-10-28] MEDS: HEPARIN for IV BOLUS 10,000 UNIT/10 ML VIAL. IV (04:00)
[2017-10-28] MEDS: HEPARIN 25,000UTS/500ML PREMIX 500 ML IV ×2 (04:01→22:20)
[2017-10-28] MEDS: MORPHINE SULFATE 4 MG/ML DISP.SYRIN. IV ×7 (05:08→23:45)
[2017-10-28] MEDS: ANTI-COAG MONITOR BY PHARMACY. MC (05:19)
[2017-10-28 09:00] LABS: POC GLUCOSE 193 mg/dL (70-99)
[2017-10-28 11:27] LABS: POC GLUCOSE 178 mg/dL (70-99)
[2017-10-28] MEDS ORDERED: DEXTROSE 50% 25 GM / 50ML DISP.SYRIN. IV (11:45)
[2017-10-28] MEDS: ALLOPURINOL 300 MG TABLET. PO (12:35)
[2017-10-28] MEDS: GABAPENTIN 400 MG CAPSULE. PO ×2 (12:35→20:03)
[2017-10-28] MEDS: INSULIN LISPRO 300 UNITS/3 ML INSULN.PEN. SQ ×2 (12:39→17:30)
[2017-10-28] MEDS: FLUTICASONE 50MCG/NASAL SPRAY 16GM BOTTLE. NS (12:41)
[2017-10-28 16:38] LABS: POC GLUCOSE 185 mg/dL (70-99)
[2017-10-28] MEDS: ATORVASTATIN CALCIUM 40 MG TABLET. PO (20:03)
[2017-10-28 20:24] LABS: POC GLUCOSE 132 mg/dL (70-99)
[2017-10-29] MEDS: MORPHINE SULFATE 4 MG/ML DISP.SYRIN. IV ×2 (03:02→20:10)
[2017-10-29 04:28] LABS: ADD MAN DIFF? NO
[2017-10-29 04:31] LABS: BASO % 1 % (0-3); EOS # 0.1 x10^3/uL (0.0-0.7); EOS % 3 % (0-3); HEMATOCRIT 36.9 % (39.0-53.0); LYMPH # 1.7 x10^3/uL (1.0-4.8); LYMPH % 50 % (24-48); MEAN CORPUSCULAR HEMOGLOBIN 24 pg (25-35); MEAN CORPUSCULAR HGB CONC 33 g/dL (31-37); MEAN CORPUSCULAR VOLUME 73 fL (79-100); MONO # 0.3 x10^3/uL (0.0-1.1); MONO % 8 % (0-9); NEUT # 1.3 x10^3uL (1.8-7.7); NEUT % 39 % (31-73); PLATELET COUNT 128 x10^3/uL (140-400); RED BLOOD COUNT 5.04 x10^6/uL (4.30-5.70); RED CELL DISTRIBUTION WIDTH 14.1 % (11.5-14.5); WHITE BLOOD COUNT 3.5 x10^3/uL (4.0-11.0)
[2017-10-29 04:37] LABS: PROTHROMBIN TIME PATIENT 13.1 SEC (11.7-14.0)
[2017-10-29 04:55] LABS: ALBUMIN 3.5 g/dL (3.4-5.0); ALK PHOS 91 U/L (46-116); ALT (SGPT) 47 U/L (16-63); ANION GAP 8 (6-14); AST (SGOT) 36 U/L (15-37); BLOOD UREA NITROGEN 11 mg/dL (8-26); BUN/CREATININE RATIO 10 (6-20); CALCIUM 8.6 mg/dL (8.5-10.1); CARBON DIOXIDE 27 mmol/L (21-32); CHLORIDE 100 mmol/L (98-107); CREATININE 1.1 mg/dL (0.7-1.3); GFR 84.1; GLUCOSE 256 mg/dL (70-99); POTASSIUM 3.9 mmol/L (3.5-5.1); SODIUM 135 mmol/L (136-145); TOTAL BILIRUBIN 0.3 mg/dL (0.2-1.0); TOTAL PROTEIN 7.1 g/dL (6.4-8.2)
[2017-10-29 07:40] LABS: POC GLUCOSE 188 mg/dL (70-99)
[2017-10-29] MEDS: INSULIN LISPRO 300 UNITS/3 ML INSULN.PEN. SQ ×3 (08:00→19:06)
[2017-10-29] MEDS: oxyCODONE/APAP 10/325 1 TAB TABLET PO ×2 (08:02→22:37)
[2017-10-29] MEDS: GABAPENTIN 400 MG CAPSULE. PO ×3 (08:02→22:36)
[2017-10-29] MEDS: FLUTICASONE 50MCG/NASAL SPRAY 16GM BOTTLE. NS (08:17)
[2017-10-29] MEDS: ALLOPURINOL 300 MG TABLET. PO (09:00)
[2017-10-29] MEDS ORDERED: PROPOFOL 60 ML IV (11:16)
[2017-10-29] MEDS ORDERED: LIDOCAINE 2% PF Vial for OR 5 ML VIAL. (11:16)
[2017-10-29] MEDS ORDERED: MIDAZOLAM HCL/PF 2 MG/2 ML VIAL. (11:17)
[2017-10-29] MEDS ORDERED: fentaNYL PF VIAL 100 MCG/2 ML VIAL (11:18)
[2017-10-29] MEDS ORDERED: ePHEDrine PF IN SALINE 50 MG/5 ML DISP.SYRIN IV (11:19)
[2017-10-29] MEDS ORDERED: PHENYLEPHRINE in 0.9% NACL PF 1 MG/10 ML SYRINGE. IV (11:19)
[2017-10-29 11:53] LABS: POC GLUCOSE 228 mg/dL (70-99)
[2017-10-29] MEDS ORDERED: LIDOCAINE WITH 8.4% SOD BICARB 3 ML DISP.SYRIN. (12:36)
[2017-10-29] MEDS: IV RINGERS,LACTATED 1000ML 1,000 ML IV (12:44)
[2017-10-29] MEDS ORDERED: LIDOCAINE 1% PF 2 ML VIAL. ID (12:45)
[2017-10-29] MEDS ORDERED: fentaNYL PF VIAL 100 MCG/2 ML VIAL IV ×2 (12:45)
[2017-10-29] MEDS ORDERED: MORPHINE SULFATE 4 MG/ML DISP.SYRIN. IV (12:45)
[2017-10-29] MEDS ORDERED: PROCHLORPERAZINE 10 MG/2 ML VIAL. IV (12:45)
[2017-10-29] MEDS ORDERED: ONDANSETRON PF 4 MG/2 ML VIAL. IV (12:45)
[2017-10-29] MEDS ORDERED: CONTRAST GIVEN. MC (14:00)
[2017-10-29] MEDS ORDERED: PROPOFOL 20 ML IV ×2 (14:21→14:37)
[2017-10-29] MEDS: ANTI-COAG MONITOR BY PHARMACY. MC (14:26)
[2017-10-29] MEDS ORDERED: IOHEXOL 300 MG/ML 100ML VIAL. (14:33)
[2017-10-29] MEDS ORDERED: KETAMINE HCL 500 MG/10 ML VIAL. (14:51)
[2017-10-29] MEDS: IOHEXOL 300 MG/ML 100ML VIAL. IART (16:06)
[2017-10-29] MEDS: LIDOCAINE WITH 8.4% SOD BICARB 3 ML DISP.SYRIN. IJ (16:10)
[2017-10-29 16:33] LABS: POC GLUCOSE 160 mg/dL (70-99)
[2017-10-29] MEDS ORDERED: GLYCOPYRROLATE 1 MG/5 ML VIAL. (17:07)
[2017-10-29] MEDS: GLYCOPYRROLATE 1 MG/5 ML VIAL. IV (17:15)
[2017-10-29 17:39] LABS: POC GLUCOSE 165 mg/dL (70-99)
[2017-10-29] MEDS: PHENOL ORAL SPRAY 177ML BOTTLE. PO ×2 (20:34→22:38)
[2017-10-29 21:10] LABS: POC GLUCOSE 226 mg/dL (70-99)
[2017-10-29] MEDS: ATORVASTATIN CALCIUM 40 MG TABLET. PO (22:36)
[2017-10-30 01:12] LABS: HEMOGLOBIN A1C 10.5 % (4.8-5.6)
[2017-10-30] MEDS: oxyCODONE/APAP 10/325 1 TAB TABLET PO ×4 (02:44→23:02)
[2017-10-30] MEDS: HEPARIN 25,000UTS/500ML PREMIX 500 ML IV (07:14)
[2017-10-30 07:55] LABS: POC GLUCOSE 375 mg/dL (70-99)
[2017-10-30] MEDS: GABAPENTIN 400 MG CAPSULE. PO ×3 (08:02→20:59)
[2017-10-30] MEDS: ALLOPURINOL 300 MG TABLET. PO (08:02)
[2017-10-30] MEDS: FLUTICASONE 50MCG/NASAL SPRAY 16GM BOTTLE. NS (08:03)
[2017-10-30] MEDS: INSULIN LISPRO 300 UNITS/3 ML INSULN.PEN. SQ ×3 (08:10→17:00)
[2017-10-30 09:39] LABS: POC GLUCOSE 142 mg/dL (70-99)
[2017-10-30 11:56] LABS: POC GLUCOSE 188 mg/dL (70-99)
[2017-10-30] MEDS: DOXYCYCLINE HYCLATE 100 MG TABLET PO ×2 (13:03→20:59)
[2017-10-30] MEDS: RIVAROXABAN 15 MG TABLET. PO ×2 (13:04→17:28)
[2017-10-30] MEDS: MORPHINE SULFATE 4 MG/ML DISP.SYRIN. IV ×4 (13:10→23:02)
[2017-10-30 13:34] LABS: UNFRACTIONATED HEPARIN TESTING 0.33 IU/mL (0.30-0.70)
[2017-10-30] MEDS: PHENOL ORAL SPRAY 177ML BOTTLE. PO ×2 (15:10→17:29)
[2017-10-30] MEDS: BENZOCAINE/MENTHOL LOZENGE. PO ×2 (16:21→20:26)
[2017-10-30 18:59] LABS: POC GLUCOSE 85 mg/dL (70-99)
[2017-10-30 20:41] LABS: POC GLUCOSE 310 mg/dL (70-99)
[2017-10-30] MEDS: ATORVASTATIN CALCIUM 40 MG TABLET. PO (20:59)
[2017-10-31] MEDS: PHENOL ORAL SPRAY 177ML BOTTLE. PO (02:33)
[2017-10-31] MEDS: BENZOCAINE/MENTHOL LOZENGE. PO ×2 (02:33→07:31)
[2017-10-31] MEDS: MORPHINE SULFATE 4 MG/ML DISP.SYRIN. IV ×6 (02:34→22:44)
[2017-10-31] MEDS: oxyCODONE/APAP 10/325 1 TAB TABLET PO ×3 (07:32→19:28)
[2017-10-31 07:37] LABS: POC GLUCOSE 197 mg/dL (70-99)
[2017-10-31] MEDS: GABAPENTIN 400 MG CAPSULE. PO ×3 (08:12→20:55)
[2017-10-31] MEDS: RIVAROXABAN 15 MG TABLET. PO ×2 (08:12→17:15)
[2017-10-31] MEDS: ALLOPURINOL 300 MG TABLET. PO (08:12)
[2017-10-31] MEDS: DOXYCYCLINE HYCLATE 100 MG TABLET PO ×2 (08:12→20:55)
[2017-10-31] MEDS: FLUTICASONE 50MCG/NASAL SPRAY 16GM BOTTLE. NS (08:13)
[2017-10-31] MEDS: INSULIN LISPRO 300 UNITS/3 ML INSULN.PEN. SQ ×3 (08:16→17:18)
[2017-10-31 11:34] LABS: POC GLUCOSE 242 mg/dL (70-99)
[2017-10-31 16:49] LABS: POC GLUCOSE 185 mg/dL (70-99)
[2017-10-31 20:20] LABS: POC GLUCOSE 274 mg/dL (70-99)
[2017-10-31] MEDS: ATORVASTATIN CALCIUM 40 MG TABLET. PO (20:55)
[2017-11-01] MEDS: oxyCODONE/APAP 10/325 1 TAB TABLET PO ×4 (01:45→15:12)
[2017-11-01] MEDS: MORPHINE SULFATE 4 MG/ML DISP.SYRIN. IV ×3 (05:43→14:02)
[2017-11-01 07:51] LABS: POC GLUCOSE 251 mg/dL (70-99)
[2017-11-01] MEDS: FLUTICASONE 50MCG/NASAL SPRAY 16GM BOTTLE. NS (08:37)
[2017-11-01] MEDS: RIVAROXABAN 15 MG TABLET. PO (08:38)
[2017-11-01] MEDS: DOXYCYCLINE HYCLATE 100 MG TABLET PO (08:38)
[2017-11-01] MEDS: ALLOPURINOL 300 MG TABLET. PO (08:38)
[2017-11-01] MEDS: GABAPENTIN 400 MG CAPSULE. PO ×2 (08:39→13:59)
[2017-11-01] MEDS: INSULIN LISPRO 300 UNITS/3 ML INSULN.PEN. SQ ×2 (08:44→11:49)
[2017-11-01 11:31] LABS: POC GLUCOSE 334 mg/dL (70-99)
== END 2017-11-01 15:15 | disposition home or self-care (01) | DRG 919 ==
LOC: ER 00:39 → 2 NORTH 03:40 → 2 SOUTH 15:21 → 2 NORTH 15:22
PROC: B5191ZA Fluoroscopy of Inferior Vena Cava using Low Osmolar Contrast, Guidance (ICD-10-PCS; principal; 2017-10-28)
DX: T85.628A Displacement of other specified internal prosthetic devices, implants and grafts, initial encounter (principal); I26.99 Other pulmonary embolism without acute cor pulmonale; D68.59 Other primary thrombophilia; R04.2 Hemoptysis; E11.65 Type 2 diabetes mellitus with hyperglycemia; J98.11 Atelectasis; K76.0 Fatty (change of) liver, not elsewhere classified; M10.9 Gout, unspecified; G89.29 Other chronic pain; E78.00 Pure hypercholesterolemia, unspecified; I10 Essential (primary) hypertension; F17.210 Nicotine dependence, cigarettes, uncomplicated; E78.5 Hyperlipidemia, unspecified; Y83.8 Other surgical procedures as the cause of abnormal reaction of the patient, or of later complication, without mention of misadventure at the time of the procedure; Y92.89 Other specified places as the place of occurrence of the external cause; Z86.711 Personal history of pulmonary embolism; Z79.01 Long term (current) use of anticoagulants; Z91.19 Patient's noncompliance with other medical treatment and regimen; Z91.14 Patient's other noncompliance with medication regimen; Z86.718 Personal history of other venous thrombosis and embolism; Z82.49 Family history of ischemic heart disease and other diseases of the circulatory system; Z83.3 Family history of diabetes mellitus; Z84.2 Family history of other diseases of the genitourinary system
CPT/HCPCS: 36415; 37193; 71045; 71275; 74174; 80053; 81001; 82962; 83036; 83690; 84484; 85025; 85520; 85610; 93005; 93970; 96374; 96375; 99285; 99285-25; C1713; C1769; C1892; C1894; J0690; J1644; J1815; J2250; J2270; J2370; J2704; J3010; J3490; Q9967

== ENCOUNTER 2018-01-18 01:45 | Emergency (ER) | payer OTHER ==
[~2018-01-18] VITALS: Ht 175.3 cm; Wt 83.5 kg
[~2018-01-18 01:45] MED LIST changes: +ALLO300T PO; +CRESTOR10 MG PO; +DOXY100T PO; +FLUT9.9S NS; +GABA-587 PO; +OXYC-328 PO; +OXYC-411 PO; -OXYC1TAB9 PO; +RIVA20TA2 PO; +SILD50TA PO
--- NOTE | 2018-01-18 02:02 | PHYS DOC ---
Past Medical History Past Medical History: Diabetes-Type II, DVT, High Cholesterol, Hypertension Additional Past Medical Histor: Gout, "Protein C Def.", PE Past Surgical History: Other Additional Past Surgical Histo: IVC Filter, hemmorhoidectomy Alcohol Use: Occasionally Drug Use: Cocaine, Marijuana, Opiates Adult General Chief Complaint Chief Complaint: CHEST PAIN HPI HPI Patient is a 57 year old male who presents with chest pain since 9 PM last night. Patient states that this pain is acute and given the fact that he has an IVC and out of place is here for further evaluation and management. Patient apparently has a history of PE and is currently on Xarelto. Reportedly they operated on him earlier this year for over 4 hours trying to repair the placement of his IVC but were unsuccessful and the patient reports that he was transferred to where they decided not to operate arm secondary to the degree of risk. Has been aware and has been dealing with an IVC filter out of place ever since and states he has an appointment with a vascular surgeon next week [] for the first time for another opinion and possibly further management. She also states that he is compliant with his her alto and that he also has been doing cocaine intermittently. Patient was most recently admitted on January 06 and discharged on January 08, 2018 with the following discharge summary and hospital course: Date of Admission: Jan 06, 2018 Date of Discharge: Jan 08, 2018 Admitting Diagnosis: chest pain Final Diagnosis left upper chest pain, need to rule out DVT hematemesis vs hemoptysis dm2 coagulopathy due to h/o protein C deficiency with Recurrent DVT, PE, on xarelto - will need lifetime coverage htn hld IVC filter mal location drug abuse with cocaine, marijuana Patient haD CT angio of the chest on January 07, 2018 with the following results: iMPRESSION: 1. Small filling defect identified in the right lower lobe pulmonary arterial branches similar to prior exam likely known pulmonary embolus. 2. Mild bibasilar lung airspace opacity likely atelectasis. 3. Diffuse decreased attenuation noted throughout the liver likely steatosis. Electronically signed by: Anthony Palacios MD (01/07/2018 9:20 AM) [facility] Patient had a CT the abdomen and pelvis on January 06, 2018 with the following results: minimal anterolisthesis of L4 on L5. IMPRESSION: 1. IVC filter is present with at least one of the prongs projecting into the lumen of the abdominal aorta. An additional prong course behind the abdominal aorta. The apex projects into the right lateral IVC wall. There is no adjacent fat stranding. 2. Diffuse hepatic steatosis. 3. No evidence for obstructive uropathy. 4. Normal appendix is visualized. Electronically signed by: Mitzy Vance MD (01/06/2018 8:49 AM) [facility] Patient also underwent venous Doppler of the left upper extremity which was negative for DVT on January 06, 2018 Review of Systems Review of Systems Constitutional: Denies fever or chills [] Eyes: Denies change in visual acuity, redness, or eye pain [] HENT: Denies nasal congestion or sore throat [] Respiratory: Denies cough or shortness of breath [] Cardiovascular: No additional information not addressed in HPI [] GI: Denies abdominal pain, nausea, vomiting, bloody stools or diarrhea [] : Denies dysuria or hematuria [] Musculoskeletal: Denies back pain or joint pain [] Integument: Denies rash or skin lesions [] Neurologic: Denies headache, focal weakness or sensory changes [] Endocrine: Denies polyuria or polydipsia [] All other systems were reviewed and found to be within normal limits, except as documented in this note. Current Medications Current Medications Current Medications Medications (Trade) Dose Ordered Sig/Donte Start Time Stop Time Status Last Admin Dose Admin Info (CONTRAST GIVEN -- Rx MONITORING) 1 each PRN DAILY PRN 01/18/18 03:15 01/20/18 03:14 Iohexol (Omnipaque 300 Mg/ml) 75 ml 1X ONCE 01/18/18 03:30 01/18/18 03:31 DC 01/18/18 03:33 75 ML Morphine Sulfate (Morphine Sulfate) 4 mg 1X ONCE 01/18/18 03:30 01/18/18 03:31 DC 01/18/18 04:04 4 MG Ondansetron HCl (Zofran) 4 mg 1X ONCE 01/18/18 03:30 01/18/18 03:31 DC 01/18/18 04:04 4 MG Allergies Allergies Allergies Coded Allergies Type Severity Reaction Last Updated Verified No Known Drug Allergies 01/07/18 No Physical Exam Physical Exam Constitutional: Well developed, well nourished, no acute distress, non-toxic appearance. [] HENT: Normocephalic, atraumatic, bilateral external ears normal, oropharynx moist, no oral exudates, nose normal. [] Eyes: PERRLA, EOMI, conjunctiva normal, no discharge. [] Neck: Normal range of motion, no tenderness, supple, no stridor. [] Cardiovascular:Heart rate regular rhythm, no murmur [] Lungs & Thorax: Bilateral breath sounds clear to auscultation [] Abdomen: Bowel sounds normal, soft, no tenderness, no masses, no pulsatile masses. [] Skin: Warm, dry, no erythema, no rash. [] Back: No tenderness, no CVA tenderness. [] Extremities: No tenderness, no cyanosis, no clubbing, ROM intact, no edema. [] Neurologic: Alert and oriented X 3, normal motor function, normal sensory function, no focal deficits noted. [] Psychologic: Affect normal, judgement normal, mood normal. [] Current Patient Data Vital Signs Vital Signs Date Time Temp Pulse Resp B/P (MAP) Pulse Ox O2 Delivery O2 Flow Rate FiO2 01/18/18 04:04 16 100 Room Air 01/18/18 01:45 98.3 86 141/98 (112) 98.3 Lab Values Laboratory Tests Test 01/18/18 02:02 01/18/18 03:05 White Blood Count 4.8 x10^3/uL (4.0-11.0) Red Blood Count 5.48 x10^6/uL (4.30-5.70) Hemoglobin 13.5 g/dL (13.0-17.5) Hematocrit 40.9 % (39.0-53.0) Mean Corpuscular Volume 75 fL (79-100) L Mean Corpuscular Hemoglobin 25 pg (25-35) Mean Corpuscular Hemoglobin Concent 33 g/dL (31-37) Red Cell Distribution Width 15.4 % (11.5-14.5) H Platelet Count 152 x10^3/uL (140-400) Neutrophils (%) (Auto) 68 % (31-73) Lymphocytes (%) (Auto) 24 % (24-48) Monocytes (%) (Auto) 8 % (0-9) Eosinophils (%) (Auto) 1 % (0-3) Basophils (%) (Auto) 1 % (0-3) Neutrophils # (Auto) 3.3 x10^3uL (1.8-7.7) Lymphocytes # (Auto) 1.1 x10^3/uL (1.0-4.8) Monocytes # (Auto) 0.4 x10^3/uL (0.0-1.1) Eosinophils # (Auto) 0.0 x10^3/uL (0.0-0.7) Basophils # (Auto) 0.0 x10^3/uL (0.0-0.2) Sodium Level 135 mmol/L (136-145) L Potassium Level 4.2 mmol/L (3.5-5.1) Chloride Level 99 mmol/L (98-107) Carbon Dioxide Level 28 mmol/L (21-32) Anion Gap 8 (6-14) Blood Urea Nitrogen 12 mg/dL (8-26) Creatinine 1.4 mg/dL (0.7-1.3) H Estimated GFR (Cockcroft-Gault) 63.4 BUN/Creatinine Ratio 9 (6-20) Glucose Level 316 mg/dL (70-99) H Calcium Level 9.6 mg/dL (8.5-10.1) Total Bilirubin 0.6 mg/dL (0.2-1.0) Aspartate Amino Transferase (AST) 19 U/L (15-37) Alanine Aminotransferase (ALT) 42 U/L (16-63) Alkaline Phosphatase 116 U/L (46-116) Total Protein 9.0 g/dL (6.4-8.2) H Albumin 4.7 g/dL (3.4-5.0) Albumin/Globulin Ratio 1.1 (1.0-1.7) Ethyl Alcohol Level < 10 mg/dL (0-10) Urine Collection Type Unknown Urine Color Yellow Urine Clarity Clear Urine pH 6.0 Urine Specific [place] >=1.030 Urine Protein 100 mg/dL (NEG-TRACE) Urine Glucose (UA) >=1000 mg/dL (NEG) Urine Ketones (Stick) 15 mg/dL (NEG) Urine Blood Negative (NEG) Urine Nitrite Negative (NEG) Urine Bilirubin Negative (NEG) Urine Urobilinogen Dipstick 0.2 mg/dL (0.2 mg/dL) Urine Leukocyte Esterase Negative (NEG) Urine RBC 0 /HPF (0-2) Urine WBC Occ /HPF (0-4) Urine Squamous Epithelial Cells Occ /LPF Urine Bacteria 0 /HPF (0-FEW) Urine Hyaline Casts Moderate /HPF Urine Mucus Slight /LPF Urine Opiates Screen Neg (NEG) Urine Methadone Screen Neg (NEG) Urine Barbiturates Neg (NEG) Urine Phencyclidine Screen Neg (NEG) Urine Amphetamine/Methamphetamine Neg (NEG) Urine Benzodiazepines Screen Neg (NEG) Urine Cocaine Screen Pos (NEG) Urine Cannabinoids Screen Neg (NEG) Urine Ethyl Alcohol Neg (NEG) Laboratory Tests 01/18/18 02:02 Laboratory Tests 01/18/18 02:02 EKG EKG Normal sinus rhythm at a rate of 83[]. No acute changes from previous EKG on January 06, 2018 Radiology/Procedures Radiology/Procedures [][facility] [address] [place] [address] IMAGING REPORT Signed PATIENT: MALACHI KHAN ACCOUNT: [id number] : 1960 LOCATION: ER AGE: 57 SEX: M EXAM STATUS: REG ER ORD. PHYSICIAN: MERARY PALMER MD REASON: CHEST PAIN,hx of PE and dislodged IVC PROCEDURE: CT ANGIOGRAPHY CHEST INDICATION: CHEST PAIN, HX OF PE, DISLODGEED IVC
75ML OMNI 300 COMPARISON: January 07, 2018 TECHNIQUE: Axial CT images obtained through the chest. Intravenous contrast utilized. Angiogram 3D images processed per protocol. One or more of the following individualized dose reduction techniques were utilized for this examination: 1. Automated exposure control; 2. Adjustment of the mA and/or kV according to patient size; 3. Use of iterative reconstruction technique. FINDINGS: Large amount of patient motion limits the exam. There is some mild groundglass opacities bilaterally. Partially visualized liver is low-attenuation. Nonspecific but can be seen with fatty infiltration. Low-density lesion of the right kidney measuring up to approximately 22 mm. Portion of ascending thoracic aorta obscured by motion but no definite aneurysm in the visualized portions. Degenerative changes of spine. Repeat demonstration of mild filling defects right lower lung pulmonary arteries without evidence of embolus in the main pulmonary arteries. IMPRESSION: Repeat demonstration of some mild filling defects within right lower lung pulmonary arteries which could be from previously identified small pulmonary embolus but there is no definite increase when compared to prior exam. Mild groundglass opacities bilaterally. Could be hypoventilatory changes or secondary to mild edema or pneumonitis Electronically signed by: Angela Ding MD (01/18/2018 4:48 AM) [facility] DICTATED and SIGNED BY: ANGELA DING MD DATE: 01/18/18 0403 Chest xray: NAD Course & Med Decision Making Course & Med Decision Making Pertinent Labs and Imaging studies reviewed. (See chart for details) Patient during his stay asked for detox and PAT team will be called in for the patient. Patient is cleared from a medical standpoint [] Dragon Disclaimer Dragon Disclaimer This electronic medical record was generated, in whole or in part, using a voice recognition dictation system. Departure Departure Referrals: KIMANI FOWLER (PCP) MERARY PALMER MD Jan 18, 2018 02:02
[2018-01-18 02:20] LABS: BASO % 1 % (0-3); EOS % 1 % (0-3); HEMATOCRIT 40.9 % (39.0-53.0); HEMOGLOBIN 13.5 g/dL (13.0-17.5); LYMPH # 1.1 x10^3/uL (1.0-4.8); LYMPH % 24 % (24-48); MEAN CORPUSCULAR HEMOGLOBIN 25 pg (25-35); MEAN CORPUSCULAR HGB CONC 33 g/dL (31-37); MEAN CORPUSCULAR VOLUME 75 fL (79-100); MONO # 0.4 x10^3/uL (0.0-1.1); MONO % 8 % (0-9); NEUT # 3.3 x10^3uL (1.8-7.7); NEUT % 68 % (31-73); PLATELET COUNT 152 x10^3/uL (140-400); RED BLOOD COUNT 5.48 x10^6/uL (4.30-5.70); RED CELL DISTRIBUTION WIDTH 15.4 % (11.5-14.5); WHITE BLOOD COUNT 4.8 x10^3/uL (4.0-11.0)
[2018-01-18 02:27] LABS: CALCIUM 9.6 mg/dL (8.5-10.1); CREATININE 1.4 mg/dL (0.7-1.3); GFR 63.4; POTASSIUM 4.2 mmol/L (3.5-5.1)
[2018-01-18 02:28] LABS: PROTHROMBIN TIME PATIENT 14.1 SEC (11.7-14.0)
[2018-01-18 02:33] LABS: ALBUMIN 4.7 g/dL (3.4-5.0); ALBUMIN/GLOBULIN RATIO 1.1 (1.0-1.7); TOTAL BILIRUBIN 0.6 mg/dL (0.2-1.0)
--- NOTE | 2018-01-18 03:09 | EKG ---
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
[2018-01-18] MEDS ORDERED: CONTRAST GIVEN. MC PRN (03:15)
[2018-01-18 03:17] VITALS: BP 143/88
[2018-01-18 03:21] LABS: BILIRUBIN,URINE NEGATIVE (NEG); CLARITY,URINE CLEAR; COLOR,URINE YELLOW; NITRITE,URINE NEGATIVE (NEG); PROTEIN,URINE 100 mg/dL (NEG-TRACE); UROBILINOGEN,URINE 0.2 mg/dL (0.2 mg/dL)
[2018-01-18 03:25] LABS: BACTERIA,URINE 0 /HPF (0-FEW); HYALINE CASTS, URINE MODERATE /HPF; RBC,URINE 0 /HPF (0-2); SQUAMOUS EPITHELIAL CELL,UR OCC /LPF; WBC,URINE OCC /HPF (0-4)
[2018-01-18 03:27] LABS: BARBITURATES NEG (NEG); BENZODIAZEPINES NEG (NEG); CANNABINOIDS NEG (NEG); COCAINE POS (NEG); METHADONE NEG (NEG); OPIATES NEG (NEG); PHENCYCLIDINE NEG (NEG)
[2018-01-18 03:28] LABS: AMPHETAMINE/METHAMPHETAMINE NEG (NEG)
[2018-01-18] MEDS: IOHEXOL 300 MG/ML 100ML VIAL. IV ONE (03:33)
[2018-01-18] MEDS: ONDANSETRON PF 4 MG/2 ML VIAL. IV ONE (04:04)
[2018-01-18] MEDS: MORPHINE SULFATE 4 MG/ML VIAL. IV ONE (04:04)
--- NOTE | 2018-01-18 04:51 | RAD ---
INDICATION: CHEST PAIN, HX OF PE, DISLODGEED IVC
75ML OMNI 300 COMPARISON: January 07, 2018 TECHNIQUE: Axial CT images obtained through the chest. Intravenous contrast utilized. Angiogram 3D images processed per protocol. One or more of the following individualized dose reduction techniques were utilized for this examination: 1. Automated exposure control; 2. Adjustment of the mA and/or kV according to patient size; 3. Use of iterative reconstruction technique. FINDINGS: Large amount of patient motion limits the exam. There is some mild groundglass opacities bilaterally. Partially visualized liver is low-attenuation. Nonspecific but can be seen with fatty infiltration. Low-density lesion of the right kidney measuring up to approximately 22 mm. Portion of ascending thoracic aorta obscured by motion but no definite aneurysm in the visualized portions. Degenerative changes of spine. Repeat demonstration of mild filling defects right lower lung pulmonary arteries without evidence of embolus in the main pulmonary arteries. IMPRESSION: Repeat demonstration of some mild filling defects within right lower lung pulmonary arteries which could be from previously identified small pulmonary embolus but there is no definite increase when compared to prior exam. Mild groundglass opacities bilaterally. Could be hypoventilatory changes or secondary to mild edema or pneumonitis Electronically signed by: Aneesh Flowers MD (01/18/2018 4:48 AM) [facility]
--- NOTE | 2018-01-18 07:47 | RAD ---
Portable chest, 01/18/2018: HISTORY: Chest pain Comparison is made to a study from 01/06/2018. The left ventricle is mildly prominent. The pulmonary vascularity is normal. No pulmonary infiltrate is seen. There is no evidence of pleural fluid. IMPRESSION: No acute cardiopulmonary abnormality is detected. Electronically signed by: Nacho Vargas MD (01/18/2018 7:45 AM) [facility]
== END 2018-01-18 07:20 | disposition home or self-care (01) ==
LOC: ER 01:45
DX: R07.89 Other chest pain (principal); E11.9 Type 2 diabetes mellitus without complications; E78.00 Pure hypercholesterolemia, unspecified; I10 Essential (primary) hypertension; Z86.718 Personal history of other venous thrombosis and embolism; Z86.711 Personal history of pulmonary embolism
CPT/HCPCS: 36415; 71045; 71275; 80053; 80307; 81001; 85025; 85610; 85730; 93005; 96374; 96375; 99285; G0480; J2270; J2405; Q9967; G0479

== ENCOUNTER 2018-07-10 16:03 | Emergency (ER) | payer OTHER ==
[~2018-07-10] VITALS: Ht 172.7 cm; Wt 83.5 kg
[~2018-07-10 16:03] MED LIST changes: -GABA-587 PO; +GABA-689 PO; +HYDR-2145; -HYDR-2758 PO; +HYDR-2761 PO; +HYDR-3164 PO; -HYDR-971 PO; -HYDR25TA9; -OXYC-328 PO; +OXYC1TAB22 PO
[2018-07-10] MEDS ORDERED: MECLIZINE HCL 12.5 MG TABLET. PO ONE (16:45)
[2018-07-10 16:55] LABS: BASO % 1 % (0-3); EOS # 0.1 x10^3/uL (0.0-0.7); EOS % 2 % (0-3); HEMATOCRIT 34.6 % (39.0-53.0); HEMOGLOBIN 10.8 g/dL (13.0-17.5); LYMPH # 1.3 x10^3/uL (1.0-4.8); LYMPH % 39 % (24-48); MEAN CORPUSCULAR HEMOGLOBIN 23 pg (25-35); MEAN CORPUSCULAR HGB CONC 31 g/dL (31-37); MEAN CORPUSCULAR VOLUME 74 fL (79-100); MONO # 0.3 x10^3/uL (0.0-1.1); MONO % 7 % (0-9); NEUT # 1.7 x10^3uL (1.8-7.7); NEUT % 51 % (31-73); PLATELET COUNT 174 x10^3/uL (140-400); RED CELL DISTRIBUTION WIDTH 15.7 % (11.5-14.5); WHITE BLOOD COUNT 3.4 x10^3/uL (4.0-11.0)
[2018-07-10 17:09] LABS: ALBUMIN 3.3 g/dL (3.4-5.0); ALBUMIN/GLOBULIN RATIO 0.8 (1.0-1.7); CREATININE 1.1 mg/dL (0.7-1.3); GFR 83.8; MAGNESIUM 1.7 mg/dL (1.8-2.4); POTASSIUM 3.7 mmol/L (3.5-5.1); TOTAL BILIRUBIN 0.2 mg/dL (0.2-1.0); TOTAL PROTEIN 7.6 g/dL (6.4-8.2)
--- NOTE | 2018-07-10 17:27 | RAD ---
PQRS Compliance statement: One or more of the following individualized dose reduction techniques were utilized for this examination: 1. Automated exposure control. 2. Adjustment of the mA and/or kV according to patient size. 3. Use of iterative reconstruction technique. Indication:Dizziness for one month TECHNIQUE: CT head without IV contrast COMPARISON: None FINDINGS: No pathologic extra-axial or intra-axial fluid collection. The ventricles and basal cisterns are within normal limits. Mild diffuse cerebral atrophy. No acute intracranial bleed. No focal loss of dasilva-white differentiation. Orbits are within normal limits. No suspicious calvarial lesion. Visualized paranasal sinuses and mastoid air cells are clear. The comparison thickening is seen in the left sphenoid sinus. IMPRESSION: 1. No acute intracranial process on this noncontrast CT. 2. Chronic left sphenoid sinus disease. Electronically signed by: Federico Parisi DO (07/10/2018 5:22 PM) [facility]
[2018-07-10 17:43] LABS: BILIRUBIN,URINE NEGATIVE (NEG); CLARITY,URINE CLOUDY; COLOR,URINE YELLOW; NITRITE,URINE NEGATIVE (NEG); PH,URINE 6.5; PROTEIN,URINE NEGATIVE (NEG-TRACE)
[2018-07-10 17:50] LABS: BACTERIA,URINE 0 /HPF (0-FEW); RBC,URINE 0 /HPF (0-2); WBC,URINE RARE /HPF (0-4)
[2018-07-10 18:09] VITALS: BP 146/73
[2018-07-10] MEDS ORDERED: MECL25TA3 PO (18:16)
[2018-07-10] MEDS ORDERED: ONDA4TAB7 PO (18:16)
--- NOTE | 2018-07-10 18:16 | PHYS DOC ---
Past Medical History Past Medical History: Diabetes-Type II, DVT, High Cholesterol, Hypertension Additional Past Medical Histor: Gout, "Protein C Def.", PE Past Surgical History: Other Additional Past Surgical Histo: IVC Filter, hemmorhoidectomy, Attempted IVC Removal Alcohol Use: Heavy Drug Use: Cocaine, Marijuana, Opiates Adult General Chief Complaint Chief Complaint: DIZZY/LIGHT HEADED HPI HPI Patient is a 57-year-old male who presents with complaint of intermittent dizziness over the last month. Patient states that symptoms are worsened when he changes positions from lying to sitting and sitting to standing as well as if he turns his head quickly. He states that when this occurs he feels like everything is spinning. He states that he is gotten nauseated a few times but denies having had any vomiting. He denies any headache or visual changes. Patient states that nothing improves the symptoms. Review of Systems Review of Systems Constitutional: Denies fever or chills [] Eyes: Denies change in visual acuity, redness, or eye pain [] Respiratory: Denies cough or shortness of breath [] Cardiovascular: No additional information not addressed in HPI [] GI: Denies abdominal pain, nausea, vomiting or diarrhea [] Neurologic: Denies headache, focal weakness or sensory changes. Positive dizziness [] All other systems were reviewed and found to be within normal limits, except as documented in this note. Current Medications Current Medications Current Medications Medications (Trade) Dose Ordered Sig/[facility] Start Time Stop Time Status Last Admin Dose Admin Meclizine HCl (Antivert) 25 mg 1X ONCE 07/10/18 16:45 07/10/18 16:46 DC 07/10/18 16:55 25 MG Allergies Allergies Allergies Coded Allergies Type Severity Reaction Last Updated Verified No Known Drug Allergies 01/07/18 No Physical Exam Physical Exam Constitutional: Well developed, well nourished, no acute distress, non-toxic appearance. [] HENT: Normocephalic, atraumatic, bilateral external ears normal, oropharynx moist, no oral exudates, nose normal. [] Eyes: PERRLA, EOMI, conjunctiva normal, no discharge. [] Neck: Normal range of motion, no tenderness, supple, no stridor. [] Cardiovascular: Regular rate and rhythm[] Lungs & Thorax: Bilateral breath sounds clear to auscultation [] Abdomen: Bowel sounds normal, soft, no tenderness. [] Skin: Warm, dry, no erythema, no rash. [] Extremities: No tenderness, no cyanosis, no clubbing, ROM intact, no edema. [] Neurologic: Alert and oriented X 3, no focal deficits noted. [] Current Patient Data Vital Signs Vital Signs Date Time Temp Pulse Resp B/P (MAP) Pulse Ox O2 Delivery O2 Flow Rate FiO2 07/10/18 18:09 66 21 100 07/10/18 16:18 98.6 169/86 (113) Room Air 98.6 Lab Values Laboratory Tests Test 07/10/18 16:15 07/10/18 16:43 07/10/18 17:30 Glucose (Fingerstick) 303 mg/dL (70-99) H White Blood Count 3.4 x10^3/uL (4.0-11.0) L Red Blood Count 4.70 x10^6/uL (4.30-5.70) Hemoglobin 10.8 g/dL (13.0-17.5) L Hematocrit 34.6 % (39.0-53.0) L Mean Corpuscular Volume 74 fL (79-100) L Mean Corpuscular Hemoglobin 23 pg (25-35) L Mean Corpuscular Hemoglobin Concent 31 g/dL (31-37) Red Cell Distribution Width 15.7 % (11.5-14.5) H Platelet Count 174 x10^3/uL (140-400) Neutrophils (%) (Auto) 51 % (31-73) Lymphocytes (%) (Auto) 39 % (24-48) Monocytes (%) (Auto) 7 % (0-9) Eosinophils (%) (Auto) 2 % (0-3) Basophils (%) (Auto) 1 % (0-3) Neutrophils # (Auto) 1.7 x10^3uL (1.8-7.7) L Lymphocytes # (Auto) 1.3 x10^3/uL (1.0-4.8) Monocytes # (Auto) 0.3 x10^3/uL (0.0-1.1) Eosinophils # (Auto) 0.1 x10^3/uL (0.0-0.7) Basophils # (Auto) 0.0 x10^3/uL (0.0-0.2) Sodium Level 146 mmol/L (136-145) H Potassium Level 3.7 mmol/L (3.5-5.1) Chloride Level 109 mmol/L (98-107) H Carbon Dioxide Level 28 mmol/L (21-32) Anion Gap 9 (6-14) Blood Urea Nitrogen 7 mg/dL (8-26) L Creatinine 1.1 mg/dL (0.7-1.3) Estimated GFR (Cockcroft-Gault) 83.8 BUN/Creatinine Ratio 6 (6-20) Glucose Level 299 mg/dL (70-99) H Calcium Level 9.0 mg/dL (8.5-10.1) Magnesium Level 1.7 mg/dL (1.8-2.4) L Total Bilirubin 0.2 mg/dL (0.2-1.0) Aspartate Amino Transferase (AST) 26 U/L (15-37) Alanine Aminotransferase (ALT) 41 U/L (16-63) Alkaline Phosphatase 111 U/L (46-116) Total Protein 7.6 g/dL (6.4-8.2) Albumin 3.3 g/dL (3.4-5.0) L Albumin/Globulin Ratio 0.8 (1.0-1.7) L Urine Collection Type Unknown Urine Color Yellow Urine Clarity Cloudy Urine pH 6.5 Urine Specific [place] 1.015 Urine Protein Negative mg/dL (NEG-TRACE) Urine Glucose (UA) >=1000 mg/dL (NEG) Urine Ketones (Stick) Negative mg/dL (NEG) Urine Blood Negative (NEG) Urine Nitrite Negative (NEG) Urine Bilirubin Negative (NEG) Urine Urobilinogen Dipstick 1.0 mg/dL (0.2 mg/dL) Urine Leukocyte Esterase Negative (NEG) Urine RBC 0 /HPF (0-2) Urine WBC Rare /HPF (0-4) Urine Bacteria 0 /HPF (0-FEW) Laboratory Tests 07/10/18 16:43 Laboratory Tests 07/10/18 16:43 EKG EKG [] Radiology/Procedures Radiology/Procedures [] Impressions: PROCEDURE: CT HEAD WO CONTRAST PQRS Compliance statement: One or more of the following individualized dose reduction techniques were utilized for this examination: 1. Automated exposure control. 2. Adjustment of the mA and/or kV according to patient size. 3. Use of iterative reconstruction technique. Indication:Dizziness for one month TECHNIQUE: CT head without IV contrast COMPARISON: None FINDINGS: No pathologic extra-axial or intra-axial fluid collection. The ventricles and basal cisterns are within normal limits. Mild diffuse cerebral atrophy. No acute intracranial bleed. No focal loss of dasilva-white differentiation. Orbits are within normal limits. No suspicious calvarial lesion. Visualized paranasal sinuses and mastoid air cells are clear. The comparison thickening is seen in the left sphenoid sinus. IMPRESSION: 1. No acute intracranial process on this noncontrast CT. 2. Chronic left sphenoid sinus disease. Electronically signed by: Federico Parisi DO (07/10/2018 5:22 PM) [facility] Course & Med Decision Making Course & Med Decision Making Pertinent Labs and Imaging studies reviewed. (See chart for details) [] Dragon Disclaimer Dragon Disclaimer This electronic medical record was generated, in whole or in part, using a voice recognition dictation system. Departure Departure Impression: Primary Impression: Vertigo Disposition: 01 HOME, SELF-CARE Condition: STABLE Referrals: KIMANI FOWLER (PCP) KIMANI COLLIER MD Patient Instructions: Vertigo Scripts Ondansetron Hcl (ZOFRAN) 4 Mg Tablet 4 MG PO PRN TID PRN for NAUSEA, #15 nausea/vomiting Prov: BAN HUSAIN Jr. DO 07/10/18 Meclizine Hcl (MECLIZINE HCL) 25 Mg Tablet 25 MG PO PRN TID PRN for DIZZINESS, #30 dizziness Prov: BAN HUSAIN Jr. DO 07/10/18 BAN HUSAIN Jr. DO Jul 10, 2018 18:16
--- NOTE | 2018-07-11 16:12 | EKG ---
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
[2018-10-13] MEDS ORDERED: LIDO700A21 TP (08:31)
== END 2018-07-10 18:36 | disposition home or self-care (01) ==
LOC: ER 16:03
DX: R42 Dizziness and giddiness (principal); R11.0 Nausea; J32.3 Chronic sphenoidal sinusitis; E78.00 Pure hypercholesterolemia, unspecified; I10 Essential (primary) hypertension; E11.9 Type 2 diabetes mellitus without complications; F10.20 Alcohol dependence, uncomplicated; Y90.9 Presence of alcohol in blood, level not specified; Z86.718 Personal history of other venous thrombosis and embolism
CPT/HCPCS: 36415; 70450; 80053; 81001; 82962; 83735; 85025; 93005; 99284; J8597

== ENCOUNTER 2018-09-29 01:08 | Emergency (ER) | payer OTHER ==
[~2018-09-29] VITALS: Ht 172.7 cm; Wt 83.5 kg
[~2018-09-29 01:08] MED LIST changes: +MECL25TA3 PO; +ONDA4TAB7 PO
[2018-09-29 01:29] LABS: BASO % 1 % (0-3); EOS # 0.1 x10^3/uL (0.0-0.7); EOS % 2 % (0-3); HEMOGLOBIN 11.7 g/dL (13.0-17.5); LYMPH # 2.9 x10^3/uL (1.0-4.8); LYMPH % 61 % (24-48); MEAN CORPUSCULAR HEMOGLOBIN 23 pg (25-35); MEAN CORPUSCULAR HGB CONC 32 g/dL (31-37); MEAN CORPUSCULAR VOLUME 74 fL (79-100); MONO # 0.4 x10^3/uL (0.0-1.1); MONO % 10 % (0-9); NEUT # 1.3 x10^3uL (1.8-7.7); NEUT % 28 % (31-73); PLATELET COUNT 132 x10^3/uL (140-400); RED BLOOD COUNT 4.98 x10^6/uL (4.30-5.70); RED CELL DISTRIBUTION WIDTH 15.3 % (11.5-14.5); WHITE BLOOD COUNT 4.7 x10^3/uL (4.0-11.0)
[2018-09-29] MEDS ORDERED: IV NORMAL SALINE 1000ML BAG 1,000 ML IV ONE (01:30)
[2018-09-29 01:40] LABS: ALBUMIN 3.8 g/dL (3.4-5.0); ALBUMIN/GLOBULIN RATIO 1.1 (1.0-1.7); CALCIUM 9.1 mg/dL (8.5-10.1); CREATININE 1.5 mg/dL (0.7-1.3); GFR 58.6; TOTAL BILIRUBIN 0.2 mg/dL (0.2-1.0); TOTAL PROTEIN 7.4 g/dL (6.4-8.2)
[2018-09-29 01:51] LABS: % BANDS 1 % (0-9); % BASOS 1 % (0-3); % EOS 2 % (0-5); % LYMPHS 57 % (24-48); % MONOS 6 % (0-10); % SEGS 33 % (35-66); ANISOCYTOSIS SLIGHT; HYPOCHROMIA SLIGHT; MICROCYTOSIS SLIGHT; PLT ESTIMATE DECREASED (ADEQUATE)
[2018-09-29] MEDS ORDERED: POTASSIUM CHLORIDE 10 MEQ TABLET.ER. PO ONE (02:00)
[2018-09-29] MEDS ORDERED: CYCLOBENZAPRINE 10 MG TABLET. PO ONE (02:00)
[2018-09-29 02:05] LABS: BILIRUBIN,URINE NEGATIVE (NEG); CLARITY,URINE CLEAR; COLOR,URINE YELLOW; NITRITE,URINE NEGATIVE (NEG); PROTEIN,URINE NEGATIVE (NEG-TRACE); UROBILINOGEN,URINE 0.2 mg/dL (0.2 mg/dL)
[2018-09-29 02:10] LABS: BARBITURATES NEG (NEG); BENZODIAZEPINES NEG (NEG); CANNABINOIDS NEG (NEG); COCAINE NEG (NEG); METHADONE NEG (NEG); OPIATES POS (NEG); PHENCYCLIDINE NEG (NEG)
--- NOTE | 2018-09-29 02:10 | RAD ---
Indication:chest pain after fall TECHNIQUE:Portable AP chest X-ray COMPARISON:None FINDINGS: Heart is normal in size. Prominent bronchovascular markings. No focal consolidation. No pneumothorax or effusion. Visualized bony thorax is within normal limits. IMPRESSION: Prominent pulmonary vasculature. Clinically correlate for foreign lower lobe. Electronically signed by: Federico Parisi DO (09/29/2018 2:07 AM) [facility]
[2018-09-29 02:11] LABS: AMPHETAMINE/METHAMPHETAMINE NEG (NEG)
--- NOTE | 2018-09-29 02:11 | PHYS DOC ---
Past Medical History Past Medical History: Diabetes-Type II, DVT, High Cholesterol, Hypertension Additional Past Medical Histor: Gout, "Protein C Def.", PE Past Surgical History: Other Additional Past Surgical Histo: IVC Filter, hemmorhoidectomy, Attempted IVC Removal Smoking: Cigarettes Alcohol Use: Heavy Drug Use: Cocaine, Marijuana, Opiates Social History Narrative: viagra Adult General Chief Complaint Chief Complaint: MECHANICAL FALL HPI HPI Patient is a 57 year old male brought to ED by EMS with a chief complaint of hypertension and a fall. Patient states that he took Viagra around 9:30 PM tonight. Patient states that he took another one about an hour after that. EMS was called by patient's . The patient says this isn't the patient was going in and out of consciousness. The checked his blood glucose and it was 83. Patient states systolic blood pressure was in the 70s and so they dissection known cancer fluids. Currently patient is alert and oriented 3. Patient vitals are stable. Patient does have a history of protein C deficiency and has an abdominal scar which he says is due to removal of IVC filter. Currently patient is on 02. Patient is complaining of neck pain. He states that he felt faint and fell and hit his head. Review of Systems Review of Systems Patient denies fever, chills, nausea, vomiting, diarrhea, dysuria, chest pain, shortness of breath. Current Medications Current Medications Current Medications Medications (Trade) Dose Ordered Sig/Donte Start Time Stop Time Status Last Admin Dose Admin Cyclobenzaprine HCl (Flexeril) 10 mg 1X ONCE 09/29/18 02:00 09/29/18 02:02 DC 09/29/18 02:05 10 MG Potassium Chloride (Klor-Con) 40 meq 1X ONCE 09/29/18 02:00 09/29/18 02:01 DC 09/29/18 02:05 40 MEQ Sodium Chloride 1,000 ml @ 1,000 mls/hr 1X ONCE 09/29/18 01:30 09/29/18 02:29 DC 09/29/18 01:30 1,000 MLS/HR Allergies Allergies Allergies Coded Allergies Type Severity Reaction Last Updated Verified No Known Drug Allergies 01/07/18 No Physical Exam Physical Exam Constitutional: Well developed, well nourished, no acute distress, non-toxic appearance. HENT: Normocephalic, atraumatic, normocaphalic Eyes: PERRL, EOMI Neck: Normal range of motion, no tenderness, supple Cardiovascular:Heart rate regular rhythm, no murmur Resp: Bilateral breath sounds clear to auscultation Abdomen: Soft, no tenderness, no distension Skin: Warm, dry, no erythema, no rash. Back: No tenderness, no CVA tenderness. Extremities: No tenderness, ROM intact, no edema. Neurologic: Alert and oriented X 3, normal motor function, normal sensory function, no focal deficits noted. Psychologic: Affect normal, judgement normal, mood normal. Current Patient Data Vital Signs Vital Signs Date Time Temp Pulse Resp B/P (MAP) Pulse Ox O2 Delivery O2 Flow Rate FiO2 09/29/18 04:29 84 14 98 09/29/18 01:08 98.0 11 (46) Room Air 98.0 Lab Values Laboratory Tests Test 09/29/18 01:15 09/29/18 01:58 09/29/18 03:50 White Blood Count 4.7 x10^3/uL (4.0-11.0) Red Blood Count 4.98 x10^6/uL (4.30-5.70) Hemoglobin 11.7 g/dL (13.0-17.5) L Hematocrit 37.0 % (39.0-53.0) L Mean Corpuscular Volume 74 fL (79-100) L Mean Corpuscular Hemoglobin 23 pg (25-35) L Mean Corpuscular Hemoglobin Concent 32 g/dL (31-37) Red Cell Distribution Width 15.3 % (11.5-14.5) H Platelet Count 132 x10^3/uL (140-400) L Neutrophils (%) (Auto) 28 % (31-73) L Lymphocytes (%) (Auto) 61 % (24-48) H Monocytes (%) (Auto) 10 % (0-9) H Eosinophils (%) (Auto) 2 % (0-3) Basophils (%) (Auto) 1 % (0-3) Neutrophils # (Auto) 1.3 x10^3uL (1.8-7.7) L Lymphocytes # (Auto) 2.9 x10^3/uL (1.0-4.8) Monocytes # (Auto) 0.4 x10^3/uL (0.0-1.1) Eosinophils # (Auto) 0.1 x10^3/uL (0.0-0.7) Basophils # (Auto) 0.0 x10^3/uL (0.0-0.2) Segmented Neutrophils % 33 % (35-66) L Band Neutrophils % 1 % (0-9) Lymphocytes % 57 % (24-48) H Monocytes % 6 % (0-10) Eosinophils % 2 % (0-5) Basophils % 1 % (0-3) Platelet Estimate Decreased (ADEQUATE) Hypochromasia Slight Anisocytosis Slight Microcytosis Slight Sodium Level 141 mmol/L (136-145) Potassium Level 3.0 mmol/L (3.5-5.1) L Chloride Level 102 mmol/L (98-107) Carbon Dioxide Level 28 mmol/L (21-32) Anion Gap 11 (6-14) Blood Urea Nitrogen 11 mg/dL (8-26) Creatinine 1.5 mg/dL (0.7-1.3) H Estimated GFR (Cockcroft-Gault) 58.6 BUN/Creatinine Ratio 7 (6-20) Glucose Level 97 mg/dL (70-99) Calcium Level 9.1 mg/dL (8.5-10.1) Total Bilirubin 0.2 mg/dL (0.2-1.0) Aspartate Amino Transferase (AST) 17 U/L (15-37) Alanine Aminotransferase (ALT) 64 U/L (16-63) H Alkaline Phosphatase 103 U/L (46-116) Troponin I Quantitative < 0.017 ng/mL (0.000-0.055) < 0.017 ng/mL (0.000-0.055) DS-Xux-C-Type Natriuretic Peptide 38 pg/mL (0-124) Total Protein 7.4 g/dL (6.4-8.2) Albumin 3.8 g/dL (3.4-5.0) Albumin/Globulin Ratio 1.1 (1.0-1.7) Urine Collection Type Unknown Urine Color Yellow Urine Clarity Clear Urine pH 6.0 Urine Specific [place] 1.020 Urine Protein Negative mg/dL (NEG-TRACE) Urine Glucose (UA) >=1000 mg/dL (NEG) Urine Ketones (Stick) Negative mg/dL (NEG) Urine Blood Negative (NEG) Urine Nitrite Negative (NEG) Urine Bilirubin Negative (NEG) Urine Urobilinogen Dipstick 0.2 mg/dL (0.2 mg/dL) Urine Leukocyte Esterase Negative (NEG) Urine RBC Rare /HPF (0-2) Urine WBC Rare /HPF (0-4) Urine Squamous Epithelial Cells Few /LPF Urine Bacteria 0 /HPF (0-FEW) Urine Hyaline Casts Few /HPF Urine Mucus Slight /LPF Urine Opiates Screen Pos (NEG) Urine Methadone Screen Neg (NEG) Urine Barbiturates Neg (NEG) Urine Phencyclidine Screen Neg (NEG) Urine Amphetamine/Methamphetamine Neg (NEG) Urine Benzodiazepines Screen Neg (NEG) Urine Cocaine Screen Neg (NEG) Urine Cannabinoids Screen Neg (NEG) Urine Ethyl Alcohol Pos (NEG) Laboratory Tests 09/29/18 01:15 Laboratory Tests 09/29/18 01:15 EKG EKG EKG interpretation: 1:15 on 09/29/2018 HR: 86 Normal sinus rhythm Regular intervals Normal axis and nonspecific ST changes. No STEMI No acute changes on EKG from 07/10/2018 Radiology/Procedures Radiology/Procedures Chest x-ray portable Impression: No acute disease. PROCEDURE: CT HEAD AND CERVICAL SPINE WO PQRS Compliance statement: One or more of the following individualized dose reduction techniques were utilized for this examination: 1. Automated exposure control. 2. Adjustment of the mA and/or kV according to patient size. 3. Use of iterative reconstruction technique. Indication:PAIN TO HEAD/NECK AFTER FALL TECHNIQUE: CT head without IV contrast COMPARISON:07/10/2018 FINDINGS: No pathologic extra-axial or intra-axial fluid collection. The ventricles and basal cisterns are within normal limits. No acute intracranial bleed. No large scalp hematoma. Orbits are within normal limits. No acute calvarial fracture. Visualized paranasal sinuses and mastoid air cells are clear. IMPRESSION: No acute intracranial process. Indication:PAIN TO HEAD/NECK AFTER FALL TECHNIQUE: CT of the cervical spine without IV contrast with multiplanar reformats. COMPARISON:Previous CT from 07/04/2015 FINDINGS: Cervical spine is in normal anatomic alignment. Atlantoaxial joint or is preserved with mild degenerative changes. No compression deformity. Right C4-C5 locked facet. No acute fractures. Multilevel intervertebral disc space narrowing seen with endplate irregularities and osteophyte formation. Noncontrast appearance of the neck soft tissue within normal limits. Clear lung apices. IMPRESSION: 1. No acute fracture. 2. Stable right C4-C5 locked facet. 3. Multilevel disc disease with associated facet arthropathy. Electronically signed by: Federico Parisi DO (09/29/2018 2:16 AM) [id number] Course & Med Decision Making Course & Med Decision Making Pertinent Labs and Imaging studies reviewed. (See chart for details) Labs, EKG, troponin, CT head, CT C-spine, chest x-ray, IVF. Patient placed in c-collar. EKG shows no acute changes. Troponin is negative. Labs are within normal limits except potassium is 3.0. Potassium is replaced immediately. Chest x-ray shows no acute disease. Patient complains of neck strain and so was given 10 mg by mouth Flexeril. CT head and C-spine shows no acute fractures or acute disease. Discussed results and plan of care with patient and family. Patient states that he is feeling great and would like to go home now. Patient denies chest pain, shortness of breath. We will check her 3 hour troponin that is negative patient will be discharged home. 3 hour troponin is negative as well. Discussed results and plan of care with patient. Patient is instructed to follow up with PCP in one to 2 days. Appropriate discharge instructions given to patient to return to the ED or to seek immediate medical evaluation. [place] Disclaimer Dragon Disclaimer This electronic medical record was generated, in whole or in part, using a voice recognition dictation system. Departure Departure Referrals: KIMANI FOWLER (PCP) AMELIA GENTILE DO September 29, 2018 02:11
[2018-09-29 02:15] LABS: BACTERIA,URINE 0 /HPF (0-FEW); HYALINE CASTS, URINE FEW /HPF; RBC,URINE RARE /HPF (0-2); SQUAMOUS EPITHELIAL CELL,UR FEW /LPF; WBC,URINE RARE /HPF (0-4)
--- NOTE | 2018-09-29 02:19 | RAD ---
PQRS Compliance statement: One or more of the following individualized dose reduction techniques were utilized for this examination: 1. Automated exposure control. 2. Adjustment of the mA and/or kV according to patient size. 3. Use of iterative reconstruction technique. Indication:PAIN TO HEAD/NECK AFTER FALL TECHNIQUE: CT head without IV contrast COMPARISON:07/10/2018 FINDINGS: No pathologic extra-axial or intra-axial fluid collection. The ventricles and basal cisterns are within normal limits. No acute intracranial bleed. No large scalp hematoma. Orbits are within normal limits. No acute calvarial fracture. Visualized paranasal sinuses and mastoid air cells are clear. IMPRESSION: No acute intracranial process. Indication:PAIN TO HEAD/NECK AFTER FALL TECHNIQUE: CT of the cervical spine without IV contrast with multiplanar reformats. COMPARISON:Previous CT from 07/04/2015 FINDINGS: Cervical spine is in normal anatomic alignment. Atlantoaxial joint or is preserved with mild degenerative changes. No compression deformity. Right C4-C5 locked facet. No acute fractures. Multilevel intervertebral disc space narrowing seen with endplate irregularities and osteophyte formation. Noncontrast appearance of the neck soft tissue within normal limits. Clear lung apices. IMPRESSION: 1. No acute fracture. 2. Stable right C4-C5 locked facet. 3. Multilevel disc disease with associated facet arthropathy. Electronically signed by: Federico Parisi DO (09/29/2018 2:16 AM) [facility]
[2018-09-29 04:29] VITALS: BP 113/61
--- NOTE | 2018-09-29 06:59 | EKG ---
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 Electronically Signed On 09-30-2018 10:04:45 CDT by Jg Alan
== END 2018-09-29 04:39 | disposition home or self-care (01) ==
LOC: ER 01:08
DX: I10 Essential (primary) hypertension (principal); M50.30 Other cervical disc degeneration, unspecified cervical region; E11.9 Type 2 diabetes mellitus without complications; E78.00 Pure hypercholesterolemia, unspecified; F17.210 Nicotine dependence, cigarettes, uncomplicated; F10.20 Alcohol dependence, uncomplicated; Y90.9 Presence of alcohol in blood, level not specified; Z86.718 Personal history of other venous thrombosis and embolism
CPT/HCPCS: 36415; 70450; 71045; 72125; 80053; 80307; 81001; 83880; 84484; 85007; 85025; 93005; 99285; J7030

== ENCOUNTER 2018-10-13 06:47 | Emergency (ER) | payer OTHER ==
[~2018-10-13] VITALS: Ht 172.7 cm; Wt 83.5 kg
--- NOTE | 2018-10-13 08:21 | PHYS DOC ---
Past Medical History Past Medical History: Diabetes-Type II, DVT, High Cholesterol, Hypertension Additional Past Medical Histor: Gout, "Protein C Def.", PE, back pain Past Surgical History: Other Additional Past Surgical Histo: IVC Filter, hemmorhoidectomy, IVC Removal 04/2018 Smoking: Quit Greater Than 1 Year Alcohol Use: Occasionally Drug Use: Cocaine, Marijuana, Opiates Social History Narrative: Pt reports, "I don't do nothing anymore." Adult General Chief Complaint Chief Complaint: BACK PAIN - NO INJURY HPI HPI Patient is a 57 year old male who presents with acute on chronic low back pain. Patient has a history of Protein C deficiency which has resulted in a a number of thrombotic events in the past. Currently he is managed on Xarelto. He states that he had his IVC filtered removed this past April and since that time his back pain has been "out of control". He states that his pain became acutely worse yesterday evening. He was doing some [employer] work yesterday but believes the pain came on prior to that work. The pain is a "10/10 plus" described as a constant intense ache that is worse with any movement, especially weight bearing. It is most localized at the low back b/l with radiation into the gluteal region. Patient denies fever, chills, paresthesias, anesthesias, loss of bladder or bowel incontinence. Denies leg swelling or calves tenderness. Denies chest pain or SOA. Review of Systems Review of Systems Constitutional: Denies fever or chills [] Eyes: Denies diplopia or blurred vision [] Respiratory: Denies cough, hemoptysis or shortness of breath [] Cardiovascular: Denies chest pain or palpitations [] GI: Denies abdominal pain, nausea, vomiting, or diarrhea [] : Denies dysuria or hematuria [] Musculoskeletal: Reports b/l lumbar back pain, reports b/l gluteal pain [] Neurologic: Denies paresthesias, anesthesia, weakness, loss of bladder or bowel incontinence. [] Complete review of systems found to be within normal limits, except as documented in this note. Current Medications Current Medications Current Medications Medications (Trade) Dose Ordered Sig/Donte Start Time Stop Time Status Last Admin Dose Admin Cyclobenzaprine HCl (Flexeril) 10 mg 1X ONCE 10/13/18 08:30 10/13/18 08:31 DC 10/13/18 09:11 10 MG Dexamethasone (Decadron) 10 mg 1X ONCE 10/13/18 08:30 10/13/18 08:31 DC 10/13/18 09:11 10 MG Lidocaine (Lidoderm) 1 patch 1X ONCE 10/13/18 09:00 10/13/18 09:01 DC 10/13/18 09:07 1 PATCH Miscellaneous (Lidoderm Patch Removal) 1 ea 1X ONCE 10/13/18 21:00 10/13/18 21:00 DC Morphine Sulfate (Morphine Sulfate) 5 mg 1X ONCE 10/13/18 08:30 10/13/18 08:31 DC 10/13/18 09:09 5 MG Allergies Allergies Allergies Coded Allergies Type Severity Reaction Last Updated Verified No Known Drug Allergies 10/13/18 No Physical Exam Physical Exam Constitutional: Patient laying prone in the hospital bed attempting to avoid any movement. Had to reposition the pain to converse with the patient. Appears uncomfortable. HENT: Normocephalic, atraumatic. [] Eyes: Conjunctiva normal, no discharge. [] Cardiovascular: Heart rate normal, regular rhythm Lungs & Thorax: Bilateral breath sounds clear to auscultation [] Skin: Warm, dry, no erythema, no rash or bruising regarding the skin overlying low back [] Back: Exquisite tenderness in lumbar paraspinal muscles b/l, some tenderness in gluteal muscles b/l, no CVA tenderness noted. Extremities: +1 posterior tibial pulses b/l. No evidence of leg swelling or discoloration. [] Neurologic: Alert and oriented, sensation grossly intact in LE b/l [] Psychologic: Affect normal, judgement normal, mood normal. [] Current Patient Data Vital Signs Vital Signs Date Time Temp Pulse Resp B/P (MAP) Pulse Ox O2 Delivery O2 Flow Rate FiO2 10/13/18 09:14 70 16 127/87 (100) 98 Room Air 10/13/18 07:00 97.9 97.9 EKG EKG [] Radiology/Procedures Radiology/Procedures [] Course & Med Decision Making Course & Med Decision Making Patient is a 57 year old male who presents with acute on chronic back pain that began abruptly yesterday evening. 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 Patient was exquisitely tender to palpation in the lumbar paraspinal musculature b/l and any minor movement provoked the pain. He is afebrile and without any weakness, paresthesias, anesthesias, loss of continence that would raise concern for epidural compression. Symptomatology and physical exam consistent with musculoskeletal etiology. Patient ella has a h istory Protein C deficiency with multiple thrombotic events and managed with Xarelto however he does not have any signs of DVT or PE at this time. He expressed concern that this back pain may be related to his kidneys however he has no CVA tenderness or urinary symptoms at this time. Patient was given dexamethasone, morphine and orphenadrine in the ED with interval improvement of his pain. We discussed management of his chronic pain with a pain specialist and he was provided with reference to such a provider. Will discharge home with Rx for continued steroids, Lidoderm patch, and orphenadrine as well as instructions for intermittent cold compresses of the region. Patient stable for discharge with outpatient follow-up with PCP. Discussed findings and plan with patient, who acknowledge understanding and agreement. [] Dragon Disclaimer Dragon Disclaimer This electronic medical record was generated, in whole or in part, using a voice recognition dictation system. Departure Departure Impression: Primary Impression: Acute exacerbation of chronic low back pain Disposition: 01 HOME, SELF-CARE Condition: STABLE Referrals: KIMANI FOWLER (PCP) MERRITT LOPEZ MD Patient Instructions: Chronic Back Pain, Chronic Pain Management Scripts Lidocaine (Lidocaine) 1 Each Adh..patch 1 EACH TP Q12HR, #6 PATCH Keep patch on area of pain for 12 hours then remove for next 12 hours before new patch placement. Prov: KAYLEN COX DO 10/13/18 Orphenadrine Citrate (ORPHENADRINE CITRATE) 100 Mg Tablet.er 100 MG PO BID PRN for MUSCLE PAIN, #14 Prov: KAYLEN COX DO 10/13/18 Prednisone (PREDNISONE) 20 Mg Tablet 2 TAB PO DAILY, #8 TAB Start this medication tomorrow, Wednesday10/14/18 Prov: KAYLEN COX DO 10/13/18 KAYLEN COX DO October 13, 2018 08:21
[2018-10-13] MEDS ORDERED: DEXAMETHASONE 4 MG TABLET PO ONE (08:30)
[2018-10-13] MEDS ORDERED: CYCLOBENZAPRINE 10 MG TABLET. PO ONE (08:30)
[2018-10-13] MEDS ORDERED: MORPHINE SULFATE 10 MG/ML VIAL. IM ONE (08:30)
[2018-10-13] MEDS ORDERED: PRED20TA PO (08:31)
[2018-10-13] MEDS ORDERED: LIDO700A39 TP (08:31)
[2018-10-13] MEDS ORDERED: ORPH100T PO (08:31)
[2018-10-13] MEDS ORDERED: LIDOCAINE (700MG/PATCH) PATCH. TD ONE (09:00)
[2018-10-13 09:14] VITALS: BP 127/87
[2018-10-13] MEDS ORDERED: PATCH REMOVAL. MC ONE (21:00)
== END 2018-10-13 09:47 | disposition home or self-care (01) ==
LOC: ER 06:47
DX: G89.29 Other chronic pain (principal); M54.5 Low back pain; E78.00 Pure hypercholesterolemia, unspecified; E11.9 Type 2 diabetes mellitus without complications; I10 Essential (primary) hypertension; M10.9 Gout, unspecified; Z86.73 Personal history of transient ischemic attack (TIA), and cerebral infarction without residual deficits; Z87.891 Personal history of nicotine dependence
CPT/HCPCS: 96372; 99284; J2270; J8540

== ENCOUNTER 2018-11-15 22:03 | Emergency (ER) | payer MEDICARE, OTHER ==
[~2018-11-15] VITALS: Ht 172.7 cm; Wt 83.5 kg
[~2018-11-15 22:03] MED LIST changes: +LIDO700A21 TP; +ORPH100T PO; +PRED20TA PO
[2018-11-15] MEDS ORDERED: HYDROcodone/APAP 5/325MG 1 TAB TABLET PO ONE (23:00)
[2018-11-16 00:30] VITALS: BP 130/87
[2018-11-16] MEDS ORDERED: HYDR-3164 PO (00:42)
--- NOTE | 2018-11-16 00:59 | RAD ---
Right lower extremity venous Doppler ultrasound History: Increasing right leg pain. Comparison: None. Procedure: Color flow Doppler, Doppler spectral analysis, and 2D images are obtained with and without compression in the area of the common femoral vein, superficial femoral vein - femoral vein junction, main femoral vein (superficial femoral vein) and popliteal vein. Veins of the proximal calf are also imaged. Findings: There is partially occlusive thrombus in the right common femoral vein, superficial femoral vein, profunda vein, popliteal vein, posterior tibial vein, and peroneal vein. All segments are partially compressive. There is some preserved color flow. IMPRESSION: Partially occlusive deep vein thrombus throughout the right lower extremity. Electronically signed by: Hardeep Gupta MD (11/16/2018 12:56 AM) [facility]
--- NOTE | 2018-11-16 05:30 | PHYS DOC ---
Past Medical History Past Medical History: Diabetes-Type II, DVT, High Cholesterol, Hypertension Additional Past Medical Histor: Gout, "Protein C Def.", PE, back pain Past Surgical History: Other Additional Past Surgical Histo: IVC Filter, hemmorhoidectomy, IVC Removal 04/2018 Alcohol Use: Occasionally Drug Use: Cocaine, Marijuana, Opiates Adult General Chief Complaint Chief Complaint: LOWER EXTREMITY SWELLING HPI HPI Patient is a 57 year old male who presents with leg pain and thigh pain groin pain feels that his back radiates down to his groin and down to the back of his knee he does have history of DVT is taking N her medication anticoagulation and he is compliant with that. No chest pain no shortness of breath is a chronic abdominal pain ever since his recent surgery back in April to remove an IVC filter. That is not new. Pain is in the mid thigh area. No numbness or tingling History of sciatica and feels Like That. No bowel or bladder incontinence Review of Systems Review of Systems Constitutional: Denies fever or chills [] Eyes: Denies change in visual acuity, redness, or eye pain [] HENT: Denies nasal congestion or sore throat [] Respiratory: Denies cough or shortness of breath [] Cardiovascular: No additional information not addressed in HPI [] Neurologic: Denies headache, focal weakness or sensory changes [] Endocrine: Denies polyuria or polydipsia [] All other systems were reviewed and found to be within normal limits, except as documented in this note. Current Medications Current Medications Current Medications Medications (Trade) Dose Ordered Sig/Donte Start Time Stop Time Status Last Admin Dose Admin Acetaminophen/ Hydrocodone Bitart (Lortab 5/325) 2 tab 1X ONCE 11/15/18 23:00 11/15/18 23:01 DC 11/15/18 23:21 2 TAB Allergies Allergies Allergies Coded Allergies Type Severity Reaction Last Updated Verified No Known Drug Allergies 10/13/18 No Physical Exam Physical Exam Constitutional: Well developed, well nourished, no acute distress, non-toxic appearance. [] HENT: Normocephalic, atraumatic, bilateral external ears normal, oropharynx moist, no oral exudates, nose normal. [] Eyes: PERRLA, EOMI, conjunctiva normal, no discharge. [] Neck: Normal range of motion, no tenderness, supple, no stridor. [] Pulmonary: Normal respiratory effort no increased work of breathing no obvious chest wall trauma back: there is ttp noted right paraspinous and buttock no trauma seen. Extremities: there is mild ttp noted to right mid thigh area and rigth inguinal area, no lymphadenopathy. pedal pulse present. sensation intact to light touch Neurologic: Alert and oriented X 3, normal motor function, normal sensory function, no focal deficits noted. [] Psychologic: Affect normal, judgement normal, mood normal. [] Current Patient Data Vital Signs Vital Signs Date Time Temp Pulse Resp B/P (MAP) Pulse Ox O2 Delivery O2 Flow Rate FiO2 11/16/18 00:30 80 130/87 (101) 97 Room Air 11/15/18 22:27 98.8 20 98.8 EKG EKG [] Radiology/Procedures Radiology/Procedures [] Impressions: Right lower extremity venous Doppler ultrasound History: Increasing right leg pain. Comparison: None. Procedure: Color flow Doppler, Doppler spectral analysis, and 2D images are obtained with and without compression in the area of the common femoral vein, superficial femoral vein - femoral vein junction, main femoral vein (superficial femoral vein) and popliteal vein. Veins of the proximal calf are also imaged. Findings: There is partially occlusive thrombus in the right common femoral vein, superficial femoral vein, profunda vein, popliteal vein, posterior tibial vein, and peroneal vein. All segments are partially compressive. There is some preserved color flow. IMPRESSION: Partially occlusive deep vein thrombus throughout the right lower extremity. Electronically signed by: Hardeep Meek MD (11/16/2018 12:56 AM) [facility] DICTATED and SIGNED BY: HARDEEP MEEK MD DATE: 11/16/18 0056 Course & Med Decision Making Course & Med Decision Making Pertinent Labs and Imaging studies reviewed. (See chart for details) []57 yo m with chronic dvt on anticoagulation, p/w cc of increasing leg pain and back pain does have a history of sciatica as well. Pulses present patient is exam is fairly benign overall no signs of infection ultrasound shows essentially unchanged DVT according to the network technical analyst report there was actually improved flow compared to October 28. Patient was given some pain medication and was instructed to follow-up with primary care doctor for further evaluation and management. Dragon Disclaimer Dragon Disclaimer This electronic medical record was generated, in whole or in part, using a voice recognition dictation system. Departure Departure Impression: Primary Impression: DVT (deep venous thrombosis) Additional Impression: Back pain Disposition: HOME, SELF-CARE Condition: STABLE Referrals: KIMANI FOWLER (PCP) Patient Instructions: Sciatica, [id number] Scripts Hydrocodone/Apap 5-325 (NORCO 5-325 TABLET) 1 Each Tablet 1-2 EACH PO PRN Q6HRS PRN for PAIN, #15 as needed for pain Prov: LILI FOWLER MD 11/16/18 Problem Qualifiers LILI FOWLER MD Nov 16, 2018 05:30
== END 2018-11-16 00:50 | disposition home or self-care (01) ==
LOC: ER 22:03
DX: I82.591 Chronic embolism and thrombosis of other specified deep vein of right lower extremity (principal); M54.41 Lumbago with sciatica, right side; E78.00 Pure hypercholesterolemia, unspecified; E11.9 Type 2 diabetes mellitus without complications; I10 Essential (primary) hypertension; M10.9 Gout, unspecified; Z86.711 Personal history of pulmonary embolism; Z79.01 Long term (current) use of anticoagulants
CPT/HCPCS: 93971; 99284-25

== ENCOUNTER 2019-03-18 11:06 | Emergency (ER) | payer MEDICARE, OTHER ==
[~2019-03-18] VITALS: Ht 172.7 cm; Wt 86.2 kg
[2019-03-18] MEDS ORDERED: oxyCODONE/APAP 7.5/325 1 TAB TABLET PO ONE (12:30)
[2019-03-18 13:13] LABS: BASO # 0.1 x10^3/uL (0.0-0.2); BASO % 1 % (0-3); EOS # 0.1 x10^3/uL (0.0-0.7); EOS % 1 % (0-3); HEMATOCRIT 38.5 % (39.0-53.0); HEMOGLOBIN 12.3 g/dL (13.0-17.5); LYMPH # 1.3 x10^3/uL (1.0-4.8); LYMPH % 35 % (24-48); MEAN CORPUSCULAR HEMOGLOBIN 24 pg (25-35); MEAN CORPUSCULAR HGB CONC 32 g/dL (31-37); MEAN CORPUSCULAR VOLUME 76 fL (79-100); MONO # 0.4 x10^3/uL (0.0-1.1); MONO % 10 % (0-9); NEUT % 52 % (31-73); PLATELET COUNT 135 x10^3/uL (140-400); RED CELL DISTRIBUTION WIDTH 14.3 % (11.5-14.5); WHITE BLOOD COUNT 3.8 x10^3/uL (4.0-11.0)
--- NOTE | 2019-03-18 13:17 | RAD ---
Exam performed: Right foot 3 views. Clinical Indication: Right great toe pain following injury. Date of Service: At 2018. Comparison : None available Findings: PA, oblique and lateral radiographs of the foot is obtained. Joint space narrowing and periarticular sclerosis is seen involving the first toe soft tissue swelling. There is no acute fracture or dislocation The joint spaces are well preserved and the articular margins are smooth. Impression: Degenerative arthrosis involving the first metatarsophalangeal joint with soft tissue swelling. Electronically signed by: Mira Virgen MD (03/18/2019 1:14 PM) [facility]
[2019-03-18 13:27] LABS: CALCIUM 9.1 mg/dL (8.5-10.1); CREATININE 1.1 mg/dL (0.7-1.3); GFR 83.5; POTASSIUM 4.5 mmol/L (3.5-5.1)
[2019-03-18 13:31] LABS: ALBUMIN 4.2 g/dL (3.4-5.0); ALBUMIN/GLOBULIN RATIO 1.1 (1.0-1.7); TOTAL BILIRUBIN 0.3 mg/dL (0.2-1.0); TOTAL PROTEIN 7.9 g/dL (6.4-8.2); URIC ACID 4.2 mg/dL (3.5-7.2)
[2019-03-18] MEDS ORDERED: KETOROLAC 15 MG/ML VIAL. IVP ONE (13:45)
[2019-03-18] MEDS ORDERED: COLC0.6T34 PO (14:07)
--- NOTE | 2019-03-18 14:08 | PHYS DOC ---
Past Medical History Past Medical History: Diabetes-Type II, DVT, High Cholesterol, Hypertension Additional Past Medical Histor: Gout, "Protein C Def.", PE, back pain (VIKRAM DANIELS APRN) Past Surgical History: Other Additional Past Surgical Histo: IVC Filter, hemmorhoidectomy, IVC Removal 04/2018 (VIKRAM DANIELS APRN) Alcohol Use: Occasionally Drug Use: Cocaine, Marijuana, Opiates (VIKRAM DANIELS APRN) Adult General Chief Complaint Chief Complaint: TOE PROBLEM HPI HPI Patient is a 58 year old male who presents with severe pain to his right great toe. The patient states that he took 4 Lortab last night with no relief from his pain. He said he hasn't slept all night. He is requesting IV pain medication for pain. The patient states that he has had gout in the past but states it was years and years ago when he has had no incident since. The patient is diabetic and has no idea what his renal function is. He denies any injury to that extremity. (VIKRAM DANIELS APRN) Review of Systems Review of Systems Constitutional: Denies fever or chills [] Respiratory: Denies cough or shortness of breath [] Cardiovascular: No additional information not addressed in HPI [] GI: Denies abdominal pain, nausea, vomiting, bloody stools or diarrhea [] : Denies dysuria or hematuria [] Musculoskeletal: See history of present illness Integument: Denies rash or skin lesions [] Neurologic: Denies headache, focal weakness or sensory changes [] Endocrine: Denies polyuria or polydipsia [] All other systems were reviewed and found to be within normal limits, except as documented in this note. (VIKRAM DANIELS APRN) Current Medications Current Medications Current Medications Medications (Trade) Dose Ordered Sig/Donte Start Time Stop Time Status Last Admin Dose Admin Ketorolac Tromethamine (Toradol 15mg Vial) 15 mg 1X ONCE 03/18/19 13:45 03/18/19 13:46 DC 03/18/19 13:45 15 MG Oxycodone/ Acetaminophen (Percocet 7.5/ 325) 1 tab 1X ONCE 03/18/19 12:30 03/18/19 12:33 DC 03/18/19 13:17 1 TAB (LILI FOWLER MD) Allergies Allergies Allergies Coded Allergies Type Severity Reaction Last Updated Verified No Known Drug Allergies 10/13/18 No (LILI FOWLER MD) Physical Exam Physical Exam Constitutional: Well developed, well nourished, no acute distress, non-toxic appearance. [] Cardiovascular:Heart rate regular rhythm, no murmur [] Lungs & Thorax: Bilateral breath sounds clear to auscultation [] Skin: Warm, dry, no erythema, no rash. [] Extremities: tenderness to the base of the right toe, ROM decreased due to pain, there is color noted to the joint with mild edema Neurologic: Alert and oriented X 3, normal motor function, normal sensory function, no focal deficits noted. [] Psychologic: Affect normal, judgement normal, mood normal. [] (VIKRAM DANIELS APRN) Current Patient Data Vital Signs Vital Signs Date Time Temp Pulse Resp B/P (MAP) Pulse Ox O2 Delivery O2 Flow Rate FiO2 03/18/19 14:25 72 18 145/82 (103) 96 03/18/19 13:17 Room Air 03/18/19 11:48 97.8 97.8 (LILI FOWLER MD) Lab Values Laboratory Tests Test 03/18/19 12:55 White Blood Count 3.8 x10^3/uL (4.0-11.0) L Red Blood Count 5.10 x10^6/uL (4.30-5.70) Hemoglobin 12.3 g/dL (13.0-17.5) L Hematocrit 38.5 % (39.0-53.0) L Mean Corpuscular Volume 76 fL (79-100) L Mean Corpuscular Hemoglobin 24 pg (25-35) L Mean Corpuscular Hemoglobin Concent 32 g/dL (31-37) Red Cell Distribution Width 14.3 % (11.5-14.5) Platelet Count 135 x10^3/uL (140-400) L Neutrophils (%) (Auto) 52 % (31-73) Lymphocytes (%) (Auto) 35 % (24-48) Monocytes (%) (Auto) 10 % (0-9) H Eosinophils (%) (Auto) 1 % (0-3) Basophils (%) (Auto) 1 % (0-3) Neutrophils # (Auto) 2.0 x10^3/uL (1.8-7.7) Lymphocytes # (Auto) 1.3 x10^3/uL (1.0-4.8) Monocytes # (Auto) 0.4 x10^3/uL (0.0-1.1) Eosinophils # (Auto) 0.1 x10^3/uL (0.0-0.7) Basophils # (Auto) 0.1 x10^3/uL (0.0-0.2) Sodium Level 135 mmol/L (136-145) L Potassium Level 4.5 mmol/L (3.5-5.1) Chloride Level 99 mmol/L (98-107) Carbon Dioxide Level 29 mmol/L (21-32) Anion Gap 7 (6-14) Blood Urea Nitrogen 10 mg/dL (8-26) Creatinine 1.1 mg/dL (0.7-1.3) Estimated GFR (Cockcroft-Gault) 83.5 BUN/Creatinine Ratio 9 (6-20) Glucose Level 298 mg/dL (70-99) H Uric Acid 4.2 mg/dL (3.5-7.2) Calcium Level 9.1 mg/dL (8.5-10.1) Total Bilirubin 0.3 mg/dL (0.2-1.0) Aspartate Amino Transferase (AST) 24 U/L (15-37) Alanine Aminotransferase (ALT) 46 U/L (16-63) Alkaline Phosphatase 105 U/L (46-116) Total Protein 7.9 g/dL (6.4-8.2) Albumin 4.2 g/dL (3.4-5.0) Albumin/Globulin Ratio 1.1 (1.0-1.7) Laboratory Tests 03/18/19 12:55 Laboratory Tests 03/18/19 12:55 (LILI FOWLER MD) EKG EKG [] (VIKRAM DANIELS APRN) Radiology/Procedures Radiology/Procedures []Signed PATIENT: MALACHI KHAN ACCOUNT: [id number] : 1960 LOCATION: ER AGE: 58 SEX: M EXAM STATUS: REG ER ORD. PHYSICIAN: VIKRAM DANIELS APRN REASON: pain to right great toe, no injury PROCEDURE: FOOT RIGHT 3V Exam performed: Right foot 3 views. Clinical Indication: Right great toe pain following injury. Date of Service: At 2018. Comparison : None available Findings: PA, oblique and lateral radiographs of the foot is obtained. Joint space narrowing and periarticular sclerosis is seen involving the first toe soft tissue swelling. There is no acute fracture or dislocation The joint spaces are well preserved and the articular margins are smooth. Impression: Degenerative arthrosis involving the first metatarsophalangeal joint with soft tissue swelling. Electronically signed by: Mira Virgen MD (03/18/2019 1:14 PM) [facility] DICTATED and SIGNED BY: MIRA VIRGEN MD DATE: 03/18/19 1314 (VIKRAM DANIELS APRN) Course & Med Decision Making Course & Med Decision Making Pertinent Labs and Imaging studies reviewed. (See chart for details) []The patient was given Toradol and Percocet in the emergency department. He is negative for septic joint. He will be treated for gout. He is to follow-up with his primary care provider for further management. (VIKRAM DANIELS APRN) Course & Med Decision Making Staff Physician Addendum: I was working in the ER during the course of this patient's visit. I was available for consultation as needed, but I was not directly involved in the care of this patient. (LILI FOWLER MD) Dragon Disclaimer Dragon Disclaimer This electronic medical record was generated, in whole or in part, using a voice recognition dictation system. (VIKRAM DANIELS APRN) Departure Departure Impression: Primary Impression: Gout Disposition: 01 HOME, SELF-CARE Condition: STABLE Referrals: KIMANI FOWLER (PCP) Patient Instructions: Gout Additional Instructions: Take the medication as directed. Follow-up with your primary care provider for possible prophylaxis against gout. If worsening return to the emergency department. Scripts Colchicine (COLCRYS) 0.6 Mg Tablet 0.6 MG PO TID for gout, #9 TAB Prov: VIKRAM DANIELS APRN 03/18/19 VIKRAM DANIELS APRN Mar 18, 2019 14:08 LILI FOWLER MD Mar 19, 2019 09:16
[2019-03-18 14:25] VITALS: BP 145/82
== END 2019-03-18 14:25 | disposition home or self-care (01) ==
LOC: ER 11:06
DX: M10.9 Gout, unspecified (principal); E11.9 Type 2 diabetes mellitus without complications; E78.00 Pure hypercholesterolemia, unspecified; I10 Essential (primary) hypertension; Z86.718 Personal history of other venous thrombosis and embolism
CPT/HCPCS: 36415; 73630; 80053; 84550; 85025; 96374; 99285; J1885

== ENCOUNTER 2019-03-21 06:00 | Emergency (ER) | payer MEDICARE, OTHER ==
[~2019-03-21] VITALS: Ht 172.7 cm; Wt 81.6 kg
[~2019-03-21 06:00] MED LIST changes: +COLC0.6T34 PO
[2019-03-21 06:09] VITALS: BP 139/76
--- NOTE | 2019-03-21 06:25 | PHYS DOC ---
Past Medical History Past Medical History: Diabetes-Type II, Other Additional Past Medical Histor: gout Past Surgical History: Other Additional Past Surgical Histo: IVC Filter, hemmorhoidectomy, IVC Removal 04/2018 Alcohol Use: Occasionally Drug Use: None Adult General Chief Complaint Chief Complaint: LOWER EXT PAIN HPI HPI 58-year-old male history of hypertension, diabetes, gout presents to the emergency Department complaints of right great toe pain. Patient was seen on Wednesday for gout exacerbation he was given by mouth medications, states these are not working. He presents today for continued pain. He denies any fever, nausea, vomiting, headache, visual change, chest pain, shortness breath, abdominal pain. All other ROS negative unless documented in HPI Review of Systems Review of Systems See Above Current Medications Current Medications Current Medications Medications (Trade) Dose Ordered Sig/Donte Start Time Stop Time Status Last Admin Dose Admin Morphine Sulfate (Morphine Sulfate) 5 mg 1X ONCE 03/21/19 06:45 03/21/19 06:46 DC 03/21/19 06:36 5 MG Ondansetron HCl (Zofran Odt) 4 mg 1X ONCE 03/21/19 06:45 03/21/19 06:46 DC 03/21/19 06:36 4 MG Allergies Allergies Allergies Coded Allergies Type Severity Reaction Last Updated Verified No Known Drug Allergies 10/13/18 No Physical Exam Physical Exam See Above Constitutional: Well developed, well nourished, no acute distress, non-toxic appearance. [] HENT: Normocephalic, atraumatic, bilateral external ears normal, oropharynx moist, no oral exudates, nose normal. [] Eyes: PERRLA, EOMI, conjunctiva normal, no discharge. [] Cardiovascular:Heart rate regular rhythm, no murmur [] Lungs & Thorax: Bilateral breath sounds clear to auscultation [] Abdomen: Bowel sounds normal, soft, no tenderness, no masses, no pulsatile masses. [] Skin: Warm, dry, no erythema, no rash. [] Extremities: tenderness to right great toe, no edema. [] Neurologic: Alert and oriented X 3, no focal deficits noted. [] Psychologic: Affect normal, judgement normal, mood normal. [] Current Patient Data Vital Signs Vital Signs Date Time Temp Pulse Resp B/P (MAP) Pulse Ox O2 Delivery O2 Flow Rate FiO2 10/22/19 06:36 14 96 03/21/19 06:09 98.0 81 139/76 (97) Room Air 98.0 EKG EKG [] Radiology/Procedures Radiology/Procedures [] Course & Med Decision Making Course & Med Decision Making Pertinent Labs and Imaging studies reviewed. (See chart for details) []58-year-old male history of hypertension, diabetes, gout presents to the emergency Department complaints of right great toe pain. Patient was seen on Wednesday for gout exacerbation he was given by mouth medications, states these are not working. He presents today for continued pain. He denies any fever, nausea, vomiting, headache, visual change, chest pain, shortness breath, abdominal pain. Morphine 5mg IM - Reassessment 0704 - patient states improved pain Plan for dc home and rx for 3 days of hydrocodone, patient states he follows with PCP next week Dragon Disclaimer Dragon Disclaimer This electronic medical record was generated, in whole or in part, using a voice recognition dictation system. Departure Departure Impression: Primary Impression: Gout attack Disposition: HOME, SELF-CARE Referrals: KIMANI FOWLER (PCP) Patient Instructions: Gout, [id number] Additional Instructions: Recommend follow up with PCP 3 - 5 days Return to the ER with worsening symptoms, intractable pain, fever, altered mental status Tylenol/Motrin as needed for pain Scripts Hydrocodone Bit/Acetaminophen (HYDROCODONE-APAP 5-325 ) 1 Tab Tablet 1 TAB PO PRN Q6HRS PRN for PAIN for 3 Days, #12 TAB 0 Refills Prov: OMAR BROWN MD 03/21/19 Problem Qualifiers Primary Impression: Gout attack Gout site: toe Gout etiology: unspecified cause Laterality: right Qualified Codes: M10.9 - Gout, unspecified OMAR BROWN MD Mar 21, 2019 06:25
[2019-03-21] MEDS ORDERED: MORPHINE SULFATE 10 MG/ML VIAL. IM ONE (06:45)
[2019-03-21] MEDS ORDERED: ONDANSETRON ODT 4 MG TAB.RAPDIS. PO ONE (06:45)
[2019-03-21] MEDS ORDERED: HYDR-2761 PO (07:06)
== END 2019-03-21 07:13 | disposition home or self-care (01) ==
LOC: ER 06:00
DX: M10.9 Gout, unspecified (principal); E11.9 Type 2 diabetes mellitus without complications
CPT/HCPCS: 96372; 99283; J2270; Q0162

== ENCOUNTER 2019-09-02 23:47 | Emergency (ER) | payer MEDICARE, OTHER ==
[~2019-09-02] VITALS: Ht 172.7 cm; Wt 96.0 kg
[~2019-09-02 23:47] MED LIST changes: +MECL-75 PO; -MECL25TA3 PO
--- NOTE | 2019-09-03 00:06 | PHYS DOC ---
Past Medical History Past Medical History: Diabetes-Type II, Other Additional Past Medical Histor: gout Past Surgical History: Other Additional Past Surgical Histo: IVC Filter, hemmorhoidectomy, IVC Removal 04/2018 Smoking Status: Never Smoker Alcohol Use: Occasionally Drug Use: None Adult General Chief Complaint Chief Complaint: COUGH HPI HPI Patient is a 58-year-old male who states he's had a cold for a few days. He's been coughing. He states he woke up tonight coughing with some pain in his throat. He has had some shortness of breath but no significant shortness of breath. He denies any dyspnea on exertion. He states he has smoked marijuana and crack within the last 3 days. He denies hemoptysis. He has not had any fever chills or sweats.[] Review of Systems Review of Systems Constitutional: Denies fever or chills [] Eyes: Denies change in visual acuity, redness, or eye pain [] HENT: Denies nasal congestion or sore throat [] Respiratory: Reports cough[] Cardiovascular: No additional information not addressed in HPI [] GI: Denies abdominal pain, nausea, vomiting, bloody stools or diarrhea [] : Denies dysuria or hematuria [] Musculoskeletal: Denies back pain or joint pain [] Integument: Denies rash or skin lesions [] Neurologic: Denies headache, focal weakness or sensory changes [] Endocrine: Denies polyuria or polydipsia [] All other systems were reviewed and found to be within normal limits, except as documented in this note. Current Medications Current Medications Current Medications Medications (Trade) Dose Ordered Sig/Donte Start Time Stop Time Status Last Admin Dose Admin Guaifenesin/ Codeine Phosphate (Robitussin Ac) 5 ml 1X ONCE 09/03/19 00:15 09/03/19 00:17 DC 09/03/19 00:21 5 ML Allergies Allergies Allergies Coded Allergies Type Severity Reaction Last Updated Verified No Known Drug Allergies 10/13/18 No Physical Exam Physical Exam Constitutional: Well developed, well nourished, no acute distress, non-toxic appearance. [] HENT: Normocephalic, atraumatic, bilateral external ears normal, oropharynx moist, no oral exudates, nose normal. [] Eyes: PERRLA, EOMI, conjunctiva normal, no discharge. [] Neck: Normal range of motion, no tenderness, supple, no stridor. [] Cardiovascular:Heart rate regular rhythm, no murmur [] Lungs & Thorax: Bilateral breath sounds clear to auscultation [] Abdomen: Bowel sounds normal, soft, no tenderness, no masses, no pulsatile masses. [] Skin: Warm, dry, no erythema, no rash. [] Back: No tenderness, no CVA tenderness. [] Extremities: No tenderness, no cyanosis, no clubbing, ROM intact, no edema. [] Neurologic: Alert and oriented X 3, normal motor function, normal sensory function, no focal deficits noted. [] Psychologic: Anxious. [] Current Patient Data Vital Signs Vital Signs Date Time Temp Pulse Resp B/P (MAP) Pulse Ox O2 Delivery O2 Flow Rate FiO2 09/03/19 00:14 91 23 125/80 (95) 94 Room Air 09/03/19 00:04 98.5 98.5 EKG EKG [] Radiology/Procedures Radiology/Procedures [] Impressions: Chest x-ray: Chronic changes no change from previous chest x-ray no acute infiltrate as interpreted by me Course & Med Decision Making Course & Med Decision Making Pertinent Labs and Imaging studies reviewed. (See chart for details) [] Dragon Disclaimer Dragon Disclaimer This electronic medical record was generated, in whole or in part, using a voice recognition dictation system. Departure Departure Impression: Primary Impression: Cough Disposition: 01 HOME, SELF-CARE Condition: STABLE Referrals: KIMANI FOWLER (PCP) Patient Instructions: Cough, Adult Additional Instructions: Return to the emergency department with any new or concerning symptoms Scripts Benzonatate (TESSALON PERLE) 100 Mg Capsule 100 MG PO TID PRN for COUGH, #30 CAP Prov: STANISLAW GONZALEZ DO 09/03/19 STANISLAW GONZALEZ DO Sep 03, 2019 00:06
[2019-09-03] MEDS ORDERED: guaiFENesin/CODEINE 100mg/10mg 5 ML LIQUID PO ONE (00:15)
[2019-09-03] MEDS ORDERED: BENZ100C PO ×2 (00:32→00:44)
[2019-09-03 00:42] VITALS: BP 132/87
--- NOTE | 2019-09-03 01:53 | RAD ---
EXAM: CHEST ONE VIEW. HISTORY: Cough. COMPARISON: 01/18/2018. FINDINGS: A frontal view of the chest is obtained. There is a mild airspace opacity in the right infrahilar region. There is no pneumothorax or pleural effusion. The heart is not enlarged. IMPRESSION: 1. Mild right basilar atelectasis or infiltrate. Electronically signed by: Eyal Jackson MD (09/03/2019 1:50 AM) [facility]
== END 2019-09-03 00:43 | disposition home or self-care (01) ==
LOC: ER 23:47
DX: R05 Cough (principal); R07.0 Pain in throat; E11.9 Type 2 diabetes mellitus without complications; Z87.39 Personal history of other diseases of the musculoskeletal system and connective tissue
CPT/HCPCS: 71045; 99283

== ENCOUNTER 2019-11-03 10:05 | Emergency (ER) | payer MEDICARE, OTHER ==
[~2019-11-03] VITALS: Ht 172.7 cm; Wt 88.6 kg
[~2019-11-03 10:05] MED LIST changes: +BENZ100C PO
--- NOTE | 2019-11-03 11:01 | EKG ---
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
[2019-11-03 11:09] LABS: BASO % 1 % (0-3); EOS % 1 % (0-3); HEMATOCRIT 37.3 % (39.0-53.0); HEMOGLOBIN 11.9 g/dL (13.0-17.5); LYMPH # 1.1 x10^3/uL (1.0-4.8); LYMPH % 26 % (24-48); MEAN CORPUSCULAR HEMOGLOBIN 24 pg (25-35); MEAN CORPUSCULAR HGB CONC 32 g/dL (31-37); MEAN CORPUSCULAR VOLUME 75 fL (79-100); MONO # 0.5 x10^3/uL (0.0-1.1); MONO % 11 % (0-9); NEUT # 2.6 x10^3/uL (1.8-7.7); NEUT % 61 % (31-73); PLATELET COUNT 135 x10^3/uL (140-400); RED BLOOD COUNT 4.97 x10^6/uL (4.30-5.70); WHITE BLOOD COUNT 4.2 x10^3/uL (4.0-11.0)
[2019-11-03 11:22] LABS: PROTHROMBIN TIME PATIENT 12.9 SEC (11.7-14.0)
[2019-11-03 11:51] LABS: CALCIUM 8.6 mg/dL (8.5-10.1); CREATININE 1.2 mg/dL (0.7-1.3); GFR 75.5; POTASSIUM 4.2 mmol/L (3.5-5.1)
[2019-11-03 11:54] LABS: ALBUMIN 3.7 g/dL (3.4-5.0); MAGNESIUM 2.1 mg/dL (1.8-2.4); TOTAL BILIRUBIN 0.4 mg/dL (0.2-1.0); TOTAL PROTEIN 7.4 g/dL (6.4-8.2)
[2019-11-03 12:06] LABS: D-DIMER 2.6 ug/mlFEU (0.00-0.50)
[2019-11-03 12:12] VITALS: BP 123/68
--- NOTE | 2019-11-03 12:31 | PHYS DOC ---
Past Medical History Past Medical History: Diabetes-Type II, DVT, Other Additional Past Medical Histor: gout,NEUROPATHY,MASS L BREAST/NIPPLE Past Surgical History: Other Additional Past Surgical Histo: IVC Filter,hemorhoidectomy,IVC Removal 04/2018 Smoking Status: Current Every Day Smoker Additional Information: SMOKES 2 BLACK & MILDS A WEEK Alcohol Use: Heavy Additional Information: DRINKS 3 TO 4 BEERS DAILY Drug Use: None General Adult EDM: Chief Complaint: UPPER EXTREMITY PAIN HPI: HPI: Patient is a 58 year old [f__sex] who presents with [] Review of Systems: Review of Systems: Constitutional: Denies fever or chills. [] Eyes: Denies change in visual acuity. [] HENT: Denies nasal congestion or sore throat. [] Respiratory: Denies cough or shortness of breath. [] Cardiovascular: Denies chest pain or edema. [] GI: Denies abdominal pain, nausea, vomiting, bloody stools or diarrhea. [] : Denies dysuria. [] Musculoskeletal: Denies back pain or joint pain. [] Integument: Denies rash. [] Neurologic: Denies headache, focal weakness or sensory changes. [] Endocrine: Denies polyuria or polydipsia. [] Lymphatic: Denies swollen glands. [] Psychiatric: Denies depression or anxiety. [] Heart Score: Risk Factors: Risk Factors: DM, Current or recent (<one month) smoker, HTN, HLP, family history of CAD, obesity. Risk Scores: Score 0 - 3: 2.5% MACE over next 6 weeks - Discharge Home Score 4 - 6: 20.3% MACE over next 6 weeks - Admit for Clinical Observation Score 7 - 10: 72.7% MACE over next 6 weeks - Early Invasive Strategies Allergies: Allergies: Allergies Coded Allergies Type Severity Reaction Last Updated Verified No Known Drug Allergies 10/13/18 No Physical Exam: PE: Constitutional: Well developed, well nourished, no acute distress, non-toxic appearance. [] HENT: Normocephalic, atraumatic, bilateral external ears normal, oropharynx moist, no oral exudates, nose normal. [] Eyes: PERRLA, EOMI, conjunctiva normal, no discharge. [] Neck: Normal range of motion, no tenderness, supple, no stridor. [] Cardiovascular:Heart rate regular rhythm, no murmur [] Lungs & Thorax: Bilateral breath sounds clear to auscultation [] Abdomen: Bowel sounds normal, soft, no tenderness, no masses, no pulsatile masses. [] Skin: Warm, dry, no erythema, no rash. [] Back: No tenderness, no CVA tenderness. [] Extremities: No tenderness, no cyanosis, no clubbing, ROM intact, no edema. [] Neurologic: Alert and oriented X 3, normal motor function, normal sensory function, no focal deficits noted. [] Psychologic: Affect normal, judgement normal, mood normal. [] Current Patient Data: Labs: Laboratory Tests Test 11/03/19 10:47 11/03/19 11:25 White Blood Count 4.2 x10^3/uL (4.0-11.0) Red Blood Count 4.97 x10^6/uL (4.30-5.70) Hemoglobin 11.9 g/dL (13.0-17.5) L Hematocrit 37.3 % (39.0-53.0) L Mean Corpuscular Volume 75 fL (79-100) L Mean Corpuscular Hemoglobin 24 pg (25-35) L Mean Corpuscular Hemoglobin Concent 32 g/dL (31-37) Red Cell Distribution Width 15.0 % (11.5-14.5) H Platelet Count 135 x10^3/uL (140-400) L Neutrophils (%) (Auto) 61 % (31-73) Lymphocytes (%) (Auto) 26 % (24-48) Monocytes (%) (Auto) 11 % (0-9) H Eosinophils (%) (Auto) 1 % (0-3) Basophils (%) (Auto) 1 % (0-3) Neutrophils # (Auto) 2.6 x10^3/uL (1.8-7.7) Lymphocytes # (Auto) 1.1 x10^3/uL (1.0-4.8) Monocytes # (Auto) 0.5 x10^3/uL (0.0-1.1) Eosinophils # (Auto) 0.0 x10^3/uL (0.0-0.7) Basophils # (Auto) 0.0 x10^3/uL (0.0-0.2) Prothrombin Time 12.9 SEC (11.7-14.0) Prothrombin Time INR 1.0 (0.8-1.1) Activated Partial Thromboplast Time 28 SEC (24-38) D-Dimer (Cheri) 2.60 ug/mlFEU (0.00-0.50) H Sodium Level 137 mmol/L (136-145) Potassium Level 4.2 mmol/L (3.5-5.1) Chloride Level 101 mmol/L (98-107) Carbon Dioxide Level 29 mmol/L (21-32) Anion Gap 7 (6-14) Blood Urea Nitrogen 11 mg/dL (8-26) Creatinine 1.2 mg/dL (0.7-1.3) Estimated GFR (Cockcroft-Gault) 75.5 BUN/Creatinine Ratio 9 (6-20) Glucose Level 249 mg/dL (70-99) H Calcium Level 8.6 mg/dL (8.5-10.1) Magnesium Level 2.1 mg/dL (1.8-2.4) Total Bilirubin 0.4 mg/dL (0.2-1.0) Aspartate Amino Transferase (AST) 20 U/L (15-37) Alanine Aminotransferase (ALT) 42 U/L (16-63) Alkaline Phosphatase 95 U/L (46-116) Troponin I Quantitative < 0.017 ng/mL (0.000-0.055) VU-Fcz-P-Type Natriuretic Peptide 37 pg/mL (0-124) Total Protein 7.4 g/dL (6.4-8.2) Albumin 3.7 g/dL (3.4-5.0) Albumin/Globulin Ratio 1.0 (1.0-1.7) Lipase 65 U/L (73-393) L Laboratory Tests 11/03/19 10:47 Laboratory Tests 11/03/19 11:25 Vital Signs: Vital Signs Date Time Temp Pulse Resp B/P (MAP) Pulse Ox O2 Delivery O2 Flow Rate FiO2 11/03/19 11:45 72 16 118/66 (83) 97 Room Air 11/03/19 10:14 98.4 98.4 EKG: EKG: [] Radiology/Procedures: Radiology/Procedures: [] Course & Med Decision Making: Course & Med Decision Making Pertinent Labs and Imaging studies reviewed. (See chart for details) [] Dragon Disclaimer: Dragon Disclaimer: This electronic medical record was generated, in whole or in part, using a voice recognition dictation system. Departure Departure Impression: Primary Impression: Musculoskeletal pain of upper extremity Disposition: 01 HOME, SELF-CARE Condition: STABLE Referrals: KIMANI FOWLER (PCP) PLEASE FOLLOW UP WITH YOUR DOCTOR NEXT WEEK FOR FURTHER EVALUATION AND TREATMENT Patient Instructions: Musculoskeletal Pain Additional Instructions: Thank you for visiting our Emergency Department. We appreciate you trusting us with your care. If any additional problems come up don't hesitate to return to visit us. Please follow up with your primary care provider so they can plan additional care if needed and know about the problem that you had. If symptoms worsen come back to the Emergency Department. Any concerning symptoms that start such as chest pain, shortness of air, weakness or numbness on one side of the body, running high fevers or any other concerning symptoms return to the ER. BRAD CRUZ DO Nov 03, 2019 12:31
== END 2019-11-03 12:42 | disposition home or self-care (01) ==
LOC: ER 10:05
DX: M79.642 Pain in left hand (principal); E11.40 Type 2 diabetes mellitus with diabetic neuropathy, unspecified; F17.200 Nicotine dependence, unspecified, uncomplicated; F10.10 Alcohol abuse, uncomplicated; Z98.890 Other specified postprocedural states; Z86.718 Personal history of other venous thrombosis and embolism
CPT/HCPCS: 36415; 80053; 83690; 83735; 83880; 84484; 85025; 85379; 85610; 85730; 93005; 99285

== ENCOUNTER 2020-08-04 22:07 | Inpatient (IN) | payer MEDICARE, OTHER ==
[~2020-08-04] VITALS: Ht 172.7 cm; Wt 91.4 kg
[~2020-08-04 22:07] MED LIST changes: +LISI10TA16; -LISI10TA2; -OXYC-411 PO; +OXYC1TAB20 PO
[2020-08-04 23:02] LABS: PROTHROMBIN TIME PATIENT 12.5 SEC (11.7-14.0)
--- NOTE | 2020-08-04 23:42 | PHYS DOC ---
Past Medical History Past Medical History: Diabetes-Type II, DVT, Other Additional Past Medical Histor: gout,NEUROPATHY,MASS L BREAST/NIPPLE Past Surgical History: Other Additional Past Surgical Histo: IVC Filter,hemorhoidectomy,IVC Removal 04/2018 Smoking Status: Current Every Day Smoker Alcohol Use: Heavy Drug Use: None Adult General Chief Complaint Chief Complaint: LOWER EXT PAIN HPI HPI Patient is a 59 year old with a past medical history of protein C deficiency, DVTs and diabetes type 2 now presenting the emergency department complaining of new onset of left calf pain and swelling. Patient states that over the last 2 weeks he is having worsening sensation of pain in the left posterior calf. Over the last week has noted a cord in the left posterior calf with worsening pain and swelling in the area. States that he has been on Xarelto and he denies missing any doses. Denies any chest pain, shortness of breath, dizziness or lightheadedness. Review of Systems Review of Systems Constitutional: Denies fever or chills [] Eyes: Denies change in visual acuity, redness, or eye pain [] HENT: Denies nasal congestion or sore throat [] Respiratory: Denies cough or shortness of breath [] Cardiovascular: No additional information not addressed in HPI [] GI: Denies abdominal pain, nausea, vomiting, bloody stools or diarrhea [] : Denies dysuria or hematuria [] Musculoskeletal: Denies back pain or joint pain [] Integument: Denies rash or skin lesions [] Neurologic: Denies headache, focal weakness or sensory changes [] Endocrine: Denies polyuria or polydipsia [] All other systems were reviewed and found to be within normal limits, except as documented in this note. Current Medications Current Medications Current Medications Medications (Trade) Dose Ordered Sig/[facility] Start Time Stop Time Status Last Admin Dose Admin Acetaminophen (Tylenol) 1,000 mg 1X ONCE 08/04/20 23:30 08/04/20 23:31 UNV Ibuprofen (Motrin) 800 mg 1X ONCE 08/04/20 23:30 08/04/20 23:31 UNV Allergies Allergies Allergies Coded Allergies Type Severity Reaction Last Updated Verified No Known Drug Allergies 10/13/18 No Physical Exam Physical Exam Constitutional: Well developed, well nourished, no acute distress, non-toxic appearance. [] HENT: Normocephalic, atraumatic, bilateral external ears normal, oropharynx moist, no oral exudates, nose normal. [] Eyes: PERRLA, EOMI, conjunctiva normal, no discharge. [] Neck: Normal range of motion, no tenderness, supple, no stridor. [] Cardiovascular:Heart rate regular rhythm, no murmur [] Lungs & Thorax: Bilateral breath sounds clear to auscultation [] Abdomen: Bowel sounds normal, soft, no tenderness, no masses, no pulsatile masses. [] Skin: Warm, dry, no erythema, no rash. [] Back: No tenderness, no CVA tenderness. [] Extremities: No tenderness, no cyanosis, no clubbing, ROM intact, no edema, left posterior calf tenderness with palpable cord [] Neurologic: Alert and oriented X 3, normal motor function, normal sensory function, no focal deficits noted. [] Psychologic: Affect normal, judgement normal, mood normal. [] Current Patient Data Vital Signs Vital Signs Date Time Temp Pulse Resp B/P (MAP) Pulse Ox O2 Delivery O2 Flow Rate FiO2 08/04/20 22:15 98.5 89 18 128/90 (103) 94 Room Air 98.5 Lab Values Laboratory Tests Test 08/04/20 22:46 Prothrombin Time 12.5 SEC (11.7-14.0) Prothrombin Time INR 1.0 (0.8-1.1) EKG EKG [] Radiology/Procedures Radiology/Procedures [] Course & Med Decision Making Course & Med Decision Making Pertinent Labs and Imaging studies reviewed. (See chart for details) 59M presenting with new onset of left lower extremity pain and swelling with a palpable cord which is raise concern for acute DVT. This is further complicated by the fact that the patient is also on Xarelto. At this time will obtain labs and add left lower extremity ultrasound. Ultrasound does demonstrate evidence of left lower extremity DVT as well as saphenous vein thrombosis. At this time will need to admit the patient and place him on a heparin drip for alteration in his medication Dragon Disclaimer Dragon Disclaimer This electronic medical record was generated, in whole or in part, using a voice recognition dictation system. Departure Departure Impression: Primary Impression: DVT (deep venous thrombosis) Disposition: 09 ADMITTED INPT THIS HOSP Condition: GOOD Referrals: KIMANI FOWLER (PCP) DEBBIE URBANO MD Aug 04, 2020 23:42
[2020-08-04] MEDS ORDERED: ONDANSETRON PF 4 MG/2 ML VIAL. IV PRN (23:45)
[2020-08-04] MEDS ORDERED: IBUPROFEN 400 MG TABLET. PO ONE (23:45)
[2020-08-04] MEDS ORDERED: HEPARIN for IV BOLUS 10,000 UNIT/10 ML VIAL. IV PRN ×2 (23:45)
[2020-08-04] MEDS ORDERED: HEPARIN 25,000UTS/250ML PREMIX 250 ML IV PRN (23:45)
[2020-08-04] MEDS ORDERED: ACETAMINOPHEN 500 MG TABLET PO ONE (23:45)
[2020-08-04] MEDS: MORPHINE SULFATE 4 MG/ML VIAL. IV PRN (23:53)
[2020-08-05] VITALS (7 sets, daily range): BP systolic 119–142; BP diastolic 72–92
[2020-08-05] LABS: BASO % 1 % (0-3); EOS # 0.1 x10^3/uL (0.0-0.7); EOS % 2 % (0-3); HEMATOCRIT 38.6 % (39.0-53.0); HEMOGLOBIN 12.2 g/dL (13.0-17.5); LYMPH # 1.6 x10^3/uL (1.0-4.8); LYMPH % 42 % (24-48); MEAN CORPUSCULAR HEMOGLOBIN 24 pg (25-35); MEAN CORPUSCULAR HGB CONC 32 g/dL (31-37); MEAN CORPUSCULAR VOLUME 76 fL (79-100); MONO # 0.4 x10^3/uL (0.0-1.1); MONO % 9 % (0-9); NEUT # 1.9 x10^3/uL (1.8-7.7); NEUT % 47 % (31-73); PLATELET COUNT 103 x10^3/uL (140-400); RED BLOOD COUNT 5.06 x10^6/uL (4.30-5.70); RED CELL DISTRIBUTION WIDTH 14.6 % (11.5-14.5); WHITE BLOOD COUNT 3.9 x10^3/uL (4.0-11.0)
[2020-08-05 00:03] LABS: CALCIUM 8.8 mg/dL (8.5-10.1); CREATININE 1.7 mg/dL (0.7-1.3); GFR 50.3; POTASSIUM 4.8 mmol/L (3.5-5.1)
[2020-08-05 00:11] LABS: ALBUMIN 3.8 g/dL (3.4-5.0); MAGNESIUM 2.3 mg/dL (1.8-2.4); TOTAL BILIRUBIN 0.2 mg/dL (0.2-1.0); TOTAL PROTEIN 7.8 g/dL (6.4-8.2)
--- NOTE | 2020-08-05 00:22 | RAD ---
Exam: US DPLX VENOUS EXTREMITY LOWER LT Indication: Reason: DVT/SWELLING / Spl. Instructions: / History: Technique: Color-flow and pulsed wave duplex ultrasound with compression of venous structures of the left lower extremity. Comparison: None Available. Findings: Nonocclusive thrombus involving the left mid to distal superficial femoral vein, popliteal vein, post erior tibial and peroneal veins. Occlusion of the lesser saphenous vein. Impression: Positive for left lower extremity DVT. Electronically signed by: Adarsh Pizarro MD (08/05/2020 12:20 AM) SRINIVASAN
[2020-08-05] MEDS: MORPHINE SULFATE 4 MG/ML VIAL. IV PRN ×8 (01:47→21:15)
[2020-08-05] MEDS ORDERED: INSULIN LISPRO 300 UNITS/3 ML VIAL. SQ ONE (02:30)
[2020-08-05] MEDS ORDERED: IV 1/2 NORMAL SALINE 1,000 ML IV ONE (02:30)
[2020-08-05] MEDS ORDERED: GABA300C18 PO (05:29)
[2020-08-05 07:22] LABS: BASO % 1 % (0-3); EOS # 0.1 x10^3/uL (0.0-0.7); EOS % 2 % (0-3); HEMATOCRIT 39.5 % (39.0-53.0); HEMOGLOBIN 12.4 g/dL (13.0-17.5); LYMPH # 2.2 x10^3/uL (1.0-4.8); LYMPH % 56 % (24-48); MEAN CORPUSCULAR HEMOGLOBIN 24 pg (25-35); MEAN CORPUSCULAR HGB CONC 31 g/dL (31-37); MEAN CORPUSCULAR VOLUME 76 fL (79-100); MONO # 0.3 x10^3/uL (0.0-1.1); MONO % 9 % (0-9); NEUT # 1.3 x10^3/uL (1.8-7.7); NEUT % 32 % (31-73); PLATELET COUNT 114 x10^3/uL (140-400); RED CELL DISTRIBUTION WIDTH 14.1 % (11.5-14.5); WHITE BLOOD COUNT 3.9 x10^3/uL (4.0-11.0)
[2020-08-05 07:39] LABS: CALCIUM 8.7 mg/dL (8.5-10.1); CREATININE 1.3 mg/dL (0.7-1.3); GFR 68.6; POTASSIUM 3.9 mmol/L (3.5-5.1)
--- NOTE | 2020-08-05 07:48 | PDOC1 ---
History and Physical Date of Service: DOS: DATE: 08/05/20 TIME: 07:44 Chief Complaint: Chief Complain: Left lower extremity swelling and pain History of Present Illness: HPI: 59 year old with a past medical history of protein C deficiency, DVTs and diabetes type 2 now presenting the emergency department complaining of new onset of left calf pain and swelling. Patient states that over the last 2 weeks he is having worsening sensation of pain in the left posterior calf. Over the last week has noted a cord in the left posterior calf with worsening pain and swelling in the area. States that he has been on Xarelto and he denies missing any doses. Denies any chest pain, shortness of breath, dizziness or lightheadedness. Past Medical/Surgical History: PMH/PSH: Past Medical History: Diabetes-Type II, DVT, gout,NEUROPATHY,MASS L BREAST/NIPPLE Past Surgical History: IVC Filter,hemorhoidectomy,IVC Removal 04/2018 Allergies: Allergies: Coded Allergies: No Known Drug Allergies (Unverified , 10/13/18) Family History: Family History: Reviewed with no relevant findings Social History: Social History: Smoking Status: Current Every Day Smoker Alcohol Use: Heavy Drug Use: None Current Medications: Current Medications Current Medications Acetaminophen (Tylenol) 1,000 mg 1X ONCE PO ; Start 08/04/20 at 23:45; Stop 08/04/20 at 23:46; Status DC Ibuprofen (Motrin) 800 mg 1X ONCE PO ; Start 08/04/20 at 23:45; Stop 08/04/20 at 23:46; Status DC Heparin Sodium/ Dextrose 250 ml @ 0 mls/hr CONT PRN IV PER PROTOCOL Last admin istered on 08/05/20at 01:29; Start 08/04/20 at 23:45 Heparin Sodium (Porcine) (Heparin Sodium) 2,650 unit PRN Q6HRS PRN IV FOR UFH LEVEL LESS THAN 0.2; Start 08/04/20 at 23:45 Heparin Sodium (Porcine) (Heparin Sodium) 1,350 unit PRN Q6HRS PRN IV FOR UFH LEVEL 0.2 - 0.29; Start 08/04/20 at 23:45 Ondansetron HCl (Zofran) 4 mg PRN Q8HRS PRN IV NAUSEA/VOMITING Last administered on 08/04/20at 23:52; Start 08/04/20 at 23:45; Stop 08/05/20 at 23:44 Morphine Sulfate (Morphine Sulfate) 4 mg PRN Q2HR PRN IV PAIN Last administered on 08/05/20at 06:18; Start 08/04/20 at 23:45; Stop 08/05/20 at 23:44 Insulin Human Lispro (HumaLOG) 20 units 1X ONCE SQ Last administered on 08/05/20at 03:03; Start 08/05/20 at 02:30; Stop 08/05/20 at 02:35; Status DC Sodium Chloride 1,000 ml @ 999 mls/hr 1X ONCE IV Last administered on 08/05/20at 02:51; Start 08/05/20 at 02:30; Stop 08/05/20 at 03:30; Status DC Active Scripts Active Xarelto (Rivaroxaban) 20 Mg Tablet 20 Mg PO DAILY 30 Days Percocet 10-325 Mg Tablet (Oxycodone/Acetaminophen) 1 Each Tablet 1 Tab PO Q4-6HRS PRN Reported Gabapentin (Gabapentin) 300 Mg Capsule 300 Mg PO TID Novolog Flexpen (Insulin Aspart) 100 Unit/1 Ml Insuln.pen 18 Unit SQ TIDBFRMEAL Allopurinol 300 Mg Tablet 1 Tab PO DAILY ROS: Review of Systems Review of System REVIEW OF SYSTEMS: GENERAL: Denies weakness SKIN: No bruising, hair changes or rashes. EYES: No blurred, double or loss of vision. NOSE AND THROAT: No history of nosebleeds, hoarseness or sore throat. HEART: No history of palpitations, chest pain or shortness of breath on exertion. LUNGS: Denies cough, hemoptysis, wheezing or shortness of breath. GASTROINTESTINAL: Denies changes in appetite, nausea, vomiting, diarrhea or constipation. GENITOURINARY: No history of frequency, urgency, hesitancy or nocturia. NEUROLOGIC: Denies history of numbness, tingling, or tremor. PSYCHIATRIC: No history of panic, anxiety or depression. ENDOCRINE: No history of heat or cold intolerance, polyuria or polydipsia. EXTREMITIES: Denies joint pain, pain on walking or stiffness. Physical Exam: Vital Signs: Vital Signs Date Time Temp Pulse Resp B/P (MAP) Pulse Ox O2 Delivery O2 Flow Rate FiO2 08/05/20 06:18 Room Air 08/05/20 03:00 83 20 119/72 (88) 94 08/05/20 00:30 97.8 97.8 Physcial Exam: GEN: No apparent distress. Alert and oriented HEENT: Normal cephalic, atraumatic, external auditory canals are patent EYES: Extraocular muscles are intact, pupil are equally round and reactive to light and accommodation MUSCULOSKELETAL: Well developed , well nourished, good range of motion ENDOCRINE: No thyromegaly was palpated LYMPHATICS: No cervical chain or axillary nodes were noted HEMATOPOIETIC: No bruising NECK: Supple, no JVD, no thyromegaly was noted LUNGS: Clear to auscultation in all lung myers without rhonchi or wheezing HEART: RRR, S!, S2 present. Peripheral pulses intact, no obvious murmurs noted ABDOMEN: Soft, nontender. Positive bowel sounds, no organomegaly, normal bowel sounds EXTREMITIES: Without clubbing, cyanosis, or edema. Pedal pulses intact. Negative Homans sign NEUROLOGIC: Normal speech and tone. A&O x 3, moves all extremities, no obvious focal deficits PSYCHIATRIC: Normal affect, normal mood. Stable SKIN: No ulcerations or rashes, good skin turgor, no jaundice VASCULAR: Good capillary refill, neurovascular bundle appears to be intact Labs: Labs: Laboratory Tests Test 08/04/20 22:46 08/05/20 00:53 08/05/20 06:55 White Blood Count 3.9 x10^3/uL (4.0-11.0) 3.9 x10^3/uL (4.0-11.0) Red Blood Count 5.06 x10^6/uL (4.30-5.70) 5.20 x10^6/uL (4.30-5.70) Hemoglobin 12.2 g/dL (13.0-17.5) 12.4 g/dL (13.0-17.5) Hematocrit 38.6 % (39.0-53.0) 39.5 % (39.0-53.0) Mean Corpuscular Volume 76 fL (79-100) 76 fL (79-100) Mean Corpuscular Hemoglobin 24 pg (25-35) 24 pg (25-35) Mean Corpuscular Hemoglobin Concent 32 g/dL (31-37) 31 g/dL (31-37) Red Cell Distribution Width 14.6 % (11.5-14.5) 14.1 % (11.5-14.5) Platelet Count 103 x10^3/uL (140-400) 114 x10^3/uL (140-400) Neutrophils (%) (Auto) 47 % (31-73) 32 % (31-73) Lymphocytes (%) (Auto) 42 % (24-48) 56 % (24-48) Monocytes (%) (Auto) 9 % (0-9) 9 % (0-9) Eosinophils (%) (Auto) 2 % (0-3) 2 % (0-3) Basophils (%) (Auto) 1 % (0-3) 1 % (0-3) Neutrophils # (Auto) 1.9 x10^3/uL (1.8-7.7) 1.3 x10^3/uL (1.8-7.7) Lymphocytes # (Auto) 1.6 x10^3/uL (1.0-4.8) 2.2 x10^3/uL (1.0-4.8) Monocytes # (Auto) 0.4 x10^3/uL (0.0-1.1) 0.3 x10^3/uL (0.0-1.1) Eosinophils # (Auto) 0.1 x10^3/uL (0.0-0.7) 0.1 x10^3/uL (0.0-0.7) Basophils # (Auto) 0.0 x10^3/uL (0.0-0.2) 0.0 x10^3/uL (0.0-0.2) Prothrombin Time 12.5 SEC (11.7-14.0) Prothromb Time International Ratio 1.0 (0.8-1.1) Sodium Level 132 mmol/L (136-145) 138 mmol/L (136-145) Potassium Level 4.8 mmol/L (3.5-5.1) 3.9 mmol/L (3.5-5.1) Chloride Level 95 mmol/L (98-107) 103 mmol/L (98-107) Carbon Dioxide Level 28 mmol/L (21-32) 27 mmol/L (21-32) Anion Gap 9 (6-14) 8 (6-14) Blood Urea Nitrogen 17 mg/dL (8-26) 14 mg/dL (8-26) Creatinine 1.7 mg/dL (0.7-1.3) 1.3 mg/dL (0.7-1.3) Estimated GFR (Cockcroft-Gault) 50.3 68.6 BUN/Creatinine Ratio 10 (6-20) Glucose Level 443 mg/dL (70-99) 151 mg/dL (70-99) Calcium Level 8.8 mg/dL (8.5-10.1) 8.7 mg/dL (8.5-10.1) Magnesium Level 2.3 mg/dL (1.8-2.4) Total Bilirubin 0.2 mg/dL (0.2-1.0) Aspartate Amino Transf (AST/SGOT) 38 U/L (15-37) Alanine Aminotransferase (ALT/SGPT) 105 U/L (16-63) Alkaline Phosphatase 98 U/L (46-116) Total Protein 7.8 g/dL (6.4-8.2) Albumin 3.8 g/dL (3.4-5.0) Albumin/Globulin Ratio 1.0 (1.0-1.7) Glucose (Fingerstick) 403 mg/dL (70-99) Laboratory Tests Test 08/04/20 22:46 08/05/20 00:53 08/05/20 06:55 White Blood Count 3.9 x10^3/uL (4.0-11.0) 3.9 x10^3/uL (4.0-11.0) Red Blood Count 5.06 x10^6/uL (4.30-5.70) 5.20 x10^6/uL (4.30-5.70) Hemoglobin 12.2 g/dL (13.0-17.5) 12.4 g/dL (13.0-17.5) Hematocrit 38.6 % (39.0-53.0) 39.5 % (39.0-53.0) Mean Corpuscular Volume 76 fL (79-100) 76 fL (79-100) Mean Corpuscular Hemoglobin 24 pg (25-35) 24 pg (25-35) Mean Corpuscular Hemoglobin Concent 32 g/dL (31-37) 31 g/dL (31-37) Red Cell Distribution Width 14.6 % (11.5-14.5) 14.1 % (11.5-14.5) Platelet Count 103 x10^3/uL (140-400) 114 x10^3/uL (140-400) Neutrophils (%) (Auto) 47 % (31-73) 32 % (31-73) Lymphocytes (%) (Auto) 42 % (24-48) 56 % (24-48) Monocytes (%) (Auto) 9 % (0-9) 9 % (0-9) Eosinophils (%) (Auto) 2 % (0-3) 2 % (0-3) Basophils (%) (Auto) 1 % (0-3) 1 % (0-3) Neutrophils # (Auto) 1.9 x10^3/uL (1.8-7.7) 1.3 x10^3/uL (1.8-7.7) Lymphocytes # (Auto) 1.6 x10^3/uL (1.0-4.8) 2.2 x10^3/uL (1.0-4.8) Monocytes # (Auto) 0.4 x10^3/uL (0.0-1.1) 0.3 x10^3/uL (0.0-1.1) Eosinophils # (Auto) 0.1 x10^3/uL (0.0-0.7) 0.1 x10^3/uL (0.0-0.7) Basophils # (Auto) 0.0 x10^3/uL (0.0-0.2) 0.0 x10^3/uL (0.0-0.2) Prothrombin Time 12.5 SEC (11.7-14.0) Prothromb Time International Ratio 1.0 (0.8-1.1) Sodium Level 132 mmol/L (136-145) 138 mmol/L (136-145) Potassium Level 4.8 mmol/L (3.5-5.1) 3.9 mmol/L (3.5-5.1) Chloride Level 95 mmol/L (98-107) 103 mmol/L (98-107) Carbon Dioxide Level 28 mmol/L (21-32) 27 mmol/L (21-32) Anion Gap 9 (6-14) 8 (6-14) Blood Urea Nitrogen 17 mg/dL (8-26) 14 mg/dL (8-26) Creatinine 1.7 mg/dL (0.7-1.3) 1.3 mg/dL (0.7-1.3) Estimated GFR (Cockcroft-Gault) 50.3 68.6 BUN/Creatinine Ratio 10 (6-20) Glucose Level 443 mg/dL (70-99) 151 mg/dL (70-99) Calcium Level 8.8 mg/dL (8.5-10.1) 8.7 mg/dL (8.5-10.1) Magnesium Level 2.3 mg/dL (1.8-2.4) Total Bilirubin 0.2 mg/dL (0.2-1.0) Aspartate Amino Transf (AST/SGOT) 38 U/L (15-37) Alanine Aminotransferase (ALT/SGPT) 105 U/L (16-63) Alkaline Phosphatase 98 U/L (46-116) Total Protein 7.8 g/dL (6.4-8.2) Albumin 3.8 g/dL (3.4-5.0) Albumin/Globulin Ratio 1.0 (1.0-1.7) Glucose (Fingerstick) 403 mg/dL (70-99) Images: Images Exam: US DPLX VENOUS EXTREMITY LOWER LT Comparison: None Available. Findings: Nonocclusive thrombus involving the left mid to distal superficial femoral vein, popliteal vein, posterior tibial and peroneal veins. Occlusion of the lesser saphenous vein. Impression: Positive for left lower extremity DVT. Assessment/Plan Assessment/Plan Acute lower extremity DVT Hyponatremia, hypochloremia due to volume depletion IRIS due to vasomotor nephropathy Mild transaminitis Hyperglycemia uncontrolled Diabetes mellitus type 2 History of DVT History of protein PROVIDER RELATIONS REP deficiency Admit to medicine for further management Continue with heparin drip Hematology consult Heparin drip for DVT prophylaxis Protonix GI prophylaxis ADA diet Full code Discussed with RN and SW Disposition inpatient management as above Surrogate decision maker is the Carmelina Ross Justifications for Admission Other Justification VALERIANO SCHULTE MD Aug 05, 2020 07:48
--- NOTE | 2020-08-05 09:45 | NUR ---
SW following. Discussed with RN, pt from home, room air, ada diet. RN advised no SW needs at this time. SW will continue to follow.
[2020-08-05] MEDS ORDERED: HEPARIN for IV BOLUS 10,000 UNIT/10 ML VIAL. IV PRN ×3 (12:45)
[2020-08-05] MEDS: GABAPENTIN 300 MG CAPSULE. PO SCH ×2 (14:35→21:04)
[2020-08-05] MEDS ORDERED: DEXTROSE 50% 25 GM / 50ML DISP.SYRIN. IV PRN (14:45)
[2020-08-05] MEDS: HEPARIN 25,000UTS/250ML PREMIX 250 ML IV PRN ×2 (14:46→17:25)
[2020-08-05] MEDS: INSULIN LISPRO 300 UNITS/3 ML VIAL. SQ SCH ×2 (17:25→17:26)
--- NOTE | 2020-08-05 17:30 | NUR ---
Pt's blood sugar was 519 during dinner mealtime. Called Dr. Mcgraw to get orders. pt takes 18 units scheduled [address] then [address]. Mcgraw advised to give another 10 units as well, 28 total. Will continue to monitor blood sugars.
[2020-08-06] MEDS ORDERED: FLUTICASONE 50MCG/NASAL SPRAY 16GM BOTTLE. NS PRN (01:45)
[2020-08-06] MEDS ORDERED: diphenhydrAMINE HCL 25 MG CAPSULE PO PRN (01:45)
[2020-08-06] MEDS ORDERED: POLYVINYL ALCOHOL 1.4% OPHTH SOLUTION 15ML BOTTLE. OU PRN (01:45)
[2020-08-06 03:00] VITALS: BP 117/67
[2020-08-06] MEDS: MORPHINE SULFATE 4 MG/ML VIAL. IV PRN ×3 (03:02→12:16)
[2020-08-06 03:33] LABS: HEMATOCRIT 37.8 % (39.0-53.0); HEMOGLOBIN 12.3 g/dL (13.0-17.5); RED BLOOD COUNT 4.93 x10^6/uL (4.30-5.70); RED CELL DISTRIBUTION WIDTH 14.4 % (11.5-14.5); WHITE BLOOD COUNT 3.6 x10^3/uL (4.0-11.0)
[2020-08-06 07:00] VITALS: BP 117/79
[2020-08-06] MEDS: GABAPENTIN 300 MG CAPSULE. PO SCH ×2 (08:36→12:22)
[2020-08-06] MEDS: INSULIN LISPRO 300 UNITS/3 ML VIAL. SQ SCH ×4 (08:41→12:30)
--- NOTE | 2020-08-06 09:43 | NUR ---
SW following. Discussed with RN, pt from home, room air, ada diet. Oncology consulted. RN advised no SW needs at this time. Anticipate discharge home in the next day or so. SW will continue to follow.
[2020-08-06] MEDS: HEPARIN 25,000UTS/250ML PREMIX 250 ML IV PRN (10:00)
[2020-08-06 11:00] VITALS: BP 120/75
--- NOTE | 2020-08-06 11:39 | PDOC ---
[employer] PROGRESS NOTE Date of Service DOS: DATE: 08/06/20 TIME: 11:38 Chief Complaint Chief Complaint Acute lower extremity DVT Hyponatremia, hypochloremia due to volume depletion IRIS due to vasomotor nephropathy Mild transaminitis Hyperglycemia uncontrolled Diabetes mellitus type 2 History of DVT History of protein CLINICAL ANALYST deficiency Admit to medicine for further management Started on insulin glargine 10 twice daily Continue with heparin drip Hematology consult Heparin drip for DVT prophylaxis Protonix GI prophylaxis ADA diet Full code Discussed with RN and SW Disposition inpatient management as above Surrogate decision maker is the Carmelina Ross History of Present Illness History of Present Illness 08/06/2020 No acute events overnight. Pending hematology evaluation. Continues to be on heparin drip. No concerns from nursing. Patient's chart, labs, images were reviewed and discussed with RN 59 year old with a past medical history of protein C deficiency, DVTs and diabetes type 2 now presenting the emergency department complaining of new onset of left calf pain and swelling. Patient states that over the last 2 weeks he is having worsening sensation of pain in the left posterior calf. Over the last week has noted a cord in the left posterior calf with worsening pain and swelling in the area. States that he has been on Xarelto and he denies missing any doses. Denies any chest pain, shortness of breath, dizziness or lightheadedness. Vitals/I&O Vitals/I&O: Vital Signs Date Time Temp Pulse Resp B/P (MAP) Pulse Ox O2 Delivery O2 Flow Rate FiO2 08/06/20 08:36 16 08/06/20 08:00 Room Air 08/06/20 07:00 98.4 66 117/79 (92) 96 98.4 I & O 08/05/20 08/05/20 08/06/20 14:59 22:59 06:59 Intake Total 400 ml 200 ml 240 ml Output Total 1000 ml 600 ml 1000 ml Balance -600 ml -400 ml -760 ml Physical Exam Lungs: Clear Labs Labs: Laboratory Tests Test 08/05/20 16:45 08/05/20 18:47 08/05/20 20:22 08/05/20 20:47 Glucose (Fingerstick) 519 mg/dL (70-99) 389 mg/dL (70-99) 176 mg/dL (70-99) Activated Partial Thromboplast Time 90 SEC (24-38) Test 08/06/20 03:10 08/06/20 07:42 White Blood Count 3.6 x10^3/uL (4.0-11.0) Red Blood Count 4.93 x10^6/uL (4.30-5.70) Hemoglobin 12.3 g/dL (13.0-17.5) Hematocrit 37.8 % (39.0-53.0) Mean Corpuscular Volume 77 fL (79-100) Mean Corpuscular Hemoglobin 25 pg (25-35) Mean Corpuscular Hemoglobin Concent 32 g/dL (31-37) Red Cell Distribution Width 14.4 % (11.5-14.5) Platelet Count 101 x10^3/uL (140-400) Activated Partial Thromboplast Time 100 SEC (24-38) Glucose (Fingerstick) 310 mg/dL (70-99) Assessment and Plan Assessmemt and Plan Problems Medical Problems: (1) DVT (deep venous thrombosis) Status: Acute Comment Review of Relevant I have reviewed the following items pam (where applicable) has been applied. Medications: Current Medications Medications (Trade) Dose Ordered Sig/Donte Route PRN Reason Start Time Stop Time Status Last Admin Dose Admin Gabapentin (Neurontin) 300 mg TID PO 08/05/20 14:00 08/06/20 08:36 Heparin Sodium/ Dextrose 250 ml @ 0 mls/hr CONT PRN IV PER PROTOCOL 08/05/20 12:45 08/06/20 10:00 Insulin Human Lispro (HumaLOG) 18 units TIDWMEALS SQ 08/05/20 17:00 08/06/20 08:41 Insulin Human Lispro (HumaLOG) 0-5 UNITS TIDWMEALS SQ 08/05/20 17:00 08/06/20 08:42 Fluticasone Propionate (Flonase) 2 spray PRN DAILY PRN NS ALLERGIES 08/06/20 01:45 08/06/20 03:00 Diphenhydramine HCl (Benadryl) 50 mg PRN BID PRN PO ITCHING 08/06/20 01:45 08/06/20 03:02 Glycerin/ Hypromellose/ Polyethylene (Artificial Tears) 1 drop PRN Q15MIN PRN OU DRY EYE 08/06/20 01:45 08/06/20 03:01 Morphine Sulfate (Morphine Sulfate) 4 mg PRN Q2HR PRN IV PAIN 08/06/20 01:45 08/06/20 08:36 Justifications for Admission Other Justification VALERIANO SCHULTE MD Aug 06, 2020 11:39
[2020-08-06] MEDS ORDERED: INSULIN GLARGINE SYRINGE. SQ SCH (12:00)
--- NOTE | 2020-08-06 13:11 | DISCH ---
DISCHARGE INSTRUCTIONS Condition on Discharge Condition on Discharge: Stable Activity After Discharge Activity Instructions for Disc: No restrictions Lifting Instructions after Dis: No heavy lifting Exercise Instruction after Dis: Progress as tolerated Driving Instructions after Dis: Do not drive Weight Bearing Status after Di: No restrictions Diet after Discharge Diet after Discharge: Diabetic No Calorie Level Diet Texture: Regular Liquid Texture: Thin Liquid Swallowing Supervision: None needed Checks after Discharge Checks after discharge: Check blood press - daily, Check blood sugar, ac/hs Contacting the DR. after DC Call your doctor for: If your condition worsens Follow-Up Follow up with: PCP within 2 weeks of discharge Follow Up With: Hematology in 2 to 4 weeks Treatment/Equipment after DC Adaptive Equipment Issued: None VALERIANO SCHULTE MD Aug 06, 2020 13:11
[2020-08-06 15:00] VITALS: BP 137/90
--- NOTE | 2020-08-06 15:45 | NUR ---
reviewed discharge instructions with Vladimir. instructed to follow up with his primary doctor. states that he has an appt this Wednesday. also to call and make an appt to see oncologist/blood doctor in 1 month. instructed to take his Hemal brody--verbalized understanding. verbalized understanding f these instructions. saline locks x2 dcd. waiting for ride.
--- NOTE | 2020-08-07 16:47 | PDOC2 ---
CONSULT Date of Consult Date of Consult DATE: 08/06/20 TIME: 12:34 Referring Physician Referring Physician: Dr. Manzanares Identification/Chief Complaint Chief Complaint DVT Source Source: Chart review, Patient History of Present Illness Reason for Visit: Vladimir Avila is a 59-year-old -[place] male with reported history of protein C deficiency. Patient reports being diagnosed with this in 2006. He has had a longstanding history of recurrent venous thromboembolism with reported history of more than 20 episodes. Patient states that his last episode of DVT was approximately 3 years ago. At that time, indefinite anticoagulation with rivaroxaban 20 mg daily was recommended. The patient reports that he had taken this medication for a few months and subsequently changed the schedule by himself. Patient reports that he made these changes due to concern for kidney and liver damage from the medication. He states that he typically takes the medication "as needed" and added that this is something he typically takes 1 or 2 times in a week. He reported recent onset pain in the left leg and came in for further evaluation. He was found to have a nonocclusive thrombus involving the left mid to distal superficial femoral vein, popliteal vein, posterior tibial and peroneal veins. He has been restarted on Xarelto. Hematology consultation has been sought by Dr. Manzanares for recommendation on anticoagulation choice. Patient reports tolerating Xarelto 20 mg daily well without any bleeding issues. He informed me that his plan was to take Xarelto 20 mg daily for 30 days and then go back to his prior protocol of taking it "as needed". Past Medical History Cardiovascular: HTN, Hyperlipidemia Pulmonary: Bronchitis, Other Heme/Onc: Other Endocrine: Diabetes Past Surgical History Past Surgical History: Colon Resection, Other Family History Family History: Heart Disease, Hypertension Social History ALCOHOL: other Drugs: Cocaine Current Problem List Problem List Problems Medical Problems: (1) DVT (deep venous thrombosis) Status: Acute Current Medications Current Medications Current Medications Acetaminophen (Tylenol) 1,000 mg 1X ONCE PO ; Start 08/04/20 at 23:45; Stop 08/04/20 at 23:46; Status DC Ibuprofen (Motrin) 800 mg 1X ONCE PO ; Start 08/04/20 at 23:45; Stop 08/04/20 at 23:46; Status DC Heparin Sodium/ Dextrose 250 ml @ 0 mls/hr CONT PRN IV PER PROTOCOL Last administered on 08/05/20at 01:29; Start 08/04/20 at 23:45; Stop 08/05/20 at 12:42; Status DC Heparin Sodium (Porcine) (Heparin Sodium) 2,650 unit PRN Q6HRS PRN IV FOR UFH LEVEL LESS THAN 0.2; Start 08/04/20 at 23:45; Stop 08/05/20 at 12:42; Status DC Heparin Sodium (Porcine) (Heparin Sodium) 1,350 unit PRN Q6HRS PRN IV FOR UFH LEVEL 0.2 - 0.29; Start 08/04/20 at 23:45; Stop 08/05/20 at 12:42; Status DC Ondansetron HCl (Zofran) 4 mg PRN Q8HRS PRN IV NAUSEA/VOMITING Last administered on 08/04/20at 23:52; Start 08/04/20 at 23:45; Stop 08/05/20 at 23:44; Status DC Morphine Sulfate (Morphine Sulfate) 4 mg PRN Q2HR PRN IV PAIN Last administered on 08/05/20at 21:15; Start 08/04/20 at 23:45; Stop 08/05/20 at 23:44; Status DC Insulin Human Lispro (HumaLOG) 20 units 1X ONCE SQ Last administered on 08/05/20at 03:03; Start 08/05/20 at 02:30; Stop 08/05/20 at 02:35; Status DC Sodium Chloride 1,000 ml @ 999 mls/hr 1X ONCE IV Last administered on 08/05/20at 02:51; Start 08/05/20 at 02:30; Stop 08/05/20 at 03:30; Status DC Gabapentin (Neurontin) 300 mg TID PO Last administered on 08/06/20at 12:22; Start 08/05/20 at 14:00; Stop 08/06/20 at 16:40; Status DC Heparin Sodium/ Dextrose 250 ml @ 0 mls/hr CONT PRN IV PER PROTOCOL Last administered on 08/06/20at 10:00; Start 08/05/20 at 12:45; Stop 08/06/20 at 16:40; Status DC Heparin Sodium (Porcine) (Heparin Sodium) 2,700 unit PRN Q6HRS PRN IV FOR PTT < 40; Start 08/05/20 at 12:45; Stop 08/06/20 at 16:40; Status DC Heparin Sodium (Porcine) (Heparin Sodium) 2,000 unit PRN Q6HRS PRN IV FOR PTT 40 - 58; Start 08/05/20 at 12:45; Stop 08/06/20 at 16:40; Status DC Heparin Sodium (Porcine) (Heparin Sodium) 1,000 unit PRN Q6HRS PRN IV FOR PTT 59 - 78; Start 08/05/20 at 12:45; Stop 08/06/20 at 16:40; Status DC Insulin Human Lispro (HumaLOG) 18 units TIDWMEALS SQ Last administered on 08/06/20at 12:19; Start 08/05/20 at 17:00; Stop 08/06/20 at 16:40; Status DC Insulin Human Lispro (HumaLOG) 0-5 UNITS TIDWMEALS SQ Last administered on 08/06/20at 12:30; Start 08/05/20 at 17:00; Stop 08/06/20 at 16:40; Status DC Dextrose (Dextrose 50%-Water Syringe) 12.5 gm PRN Q15MIN PRN IV SEE COMMENTS; Start 08/05/20 at 14:45; Stop 08/06/20 at 16:40; Status DC Fluticasone Propionate (Flonase) 2 spray PRN DAILY PRN NS ALLERGIES Last administered on 08/06/20at 03:00; Start 08/06/20 at 01:45; Stop 08/06/20 at 16:40; Status DC Diphenhydramine HCl (Benadryl) 50 mg PRN BID PRN PO ITCHING Last administered on 08/06/20at 03:02; Start 08/06/20 at 01:45; Stop 08/06/20 at 16:40; Status DC Glycerin/ Hypromellose/ Polyethylene (Artificial Tears) 1 drop PRN Q15MIN PRN OU DRY EYE Last administered on 08/06/20at 03:01; Start 08/06/20 at 01:45; Stop 08/06/20 at 16:40; Status DC Morphine Sulfate (Morphine Sulfate) 4 mg PRN Q2HR PRN IV PAIN Last administered on 08/06/20at 12:16; Start 08/06/20 at 01:45; Stop 08/06/20 at 16:40; Status DC Insulin Glargine (Lantus Syringe) 10 unit BID SQ Last administered on 08/06/20at 12:00; Start 08/06/20 at 12:00; Stop 08/06/20 at 16:40; Status DC Active Scripts Active Xarelto (Rivaroxaban) 20 Mg Tablet 20 Mg PO DAILY 30 Days Reported Gabapentin (Gabapentin) 300 Mg Capsule 300 Mg PO TID Novolog Flexpen (Insulin Aspart) 100 Unit/1 Ml Insuln.pen 18 Unit SQ TIDBFRMEAL Allopurinol 300 Mg Tablet 1 Tab PO DAILY Allergies Allergies: Coded Allergies: No Known Drug Allergies (Unverified , 10/13/18) ROS Review of System Negative unless stated otherwise in HPI Physical Exam General: Alert, Oriented X3 HEENT: Atraumatic Lungs: Clear to auscultation Heart: Regular rate, Normal S1, Normal S2 Abdomen: Normal bowel sounds, Soft Extremities: No cyanosis Skin: No rashes Neuro: Normal gait Psych/Mental Status: Mental status NL MUSCULOSKELETAL: No swelling Vitals VITALS Vital Signs Date Time Temp Pulse Resp B/P (MAP) Pulse Ox O2 Delivery O2 Flow Rate FiO2 08/06/20 15:00 98.1 87 18 137/90 (106) 94 Room Air 98.1 Labs Labs Laboratory Tests Test 08/05/20 16:45 08/05/20 18:47 08/05/20 20:22 08/05/20 20:47 Glucose (Fingerstick) 519 mg/dL (70-99) 389 mg/dL (70-99) 176 mg/dL (70-99) Activated Partial Thromboplast Time 90 SEC (24-38) Test 08/06/20 03:10 08/06/20 07:42 08/06/20 12:15 White Blood Count 3.6 x10^3/uL (4.0-11.0) Red Blood Count 4.93 x10^6/uL (4.30-5.70) Hemoglobin 12.3 g/dL (13.0-17.5) Hematocrit 37.8 % (39.0-53.0) Mean Corpuscular Volume 77 fL (79-100) Mean Corpuscular Hemoglobin 25 pg (25-35) Mean Corpuscular Hemoglobin Concent 32 g/dL (31-37) Red Cell Distribution Width 14.4 % (11.5-14.5) Platelet Count 101 x10^3/uL (140-400) Activated Partial Thromboplast Time 100 SEC (24-38) Glucose (Fingerstick) 310 mg/dL (70-99) 365 mg/dL (70-99) Assessment/Plan Assessment/Plan Assessment: Recurrent left lower extremity DVT Reported history of protein C deficiency Microcytic anemia, possibly secondary to iron deficiency Recommendations: -Given reported history of protein C deficiency and recurrent DVT, would agree with definite anticoagulation -I discussed the patient is concerns of kidney and liver damage with Xarelto. We discussed the literature regarding Xarelto does not support any concern for liver and kidney damage. We discussed the potential alternative of lowering dose resulted 10 mg daily after resolution of his acute DVT to minimize bleeding risk since that is one of his concerns. -Recommend discharging on Xarelto 20 mg daily. Patient is agreeable to taking this at this dosage -Recommend outpatient follow-up with hematology clinic for continuation of care -We will plan on retesting protein C and protein tests to confirm diagnosis. He may benefit from lower extremity angiography to exclude May Thurner syndrome if hypercoagulable work-up is negative given recurrent left lower extremity clots -Rest per primary service. Discussed with Dr. Leighton Echeverria MD Medical Oncology/Hematology Ph: [phone] LINDA ECHEVERRIA MD Aug 07, 2020 16:47
--- NOTE | 2020-08-07 18:09 | PDOC3 ---
[facility]-Discharge Summary Date of Admission: Date of Admission: Aug 05, 2020 Date of Discharge: Date of Discharge: Aug 06, 2020 Discharge Diagnosis: Discharge Diagnosis: Acute lower extremity DVT Hyponatremia, hypochloremia due to volume depletion IRIS due to vasomotor nephropathy Mild transaminitis Hyperglycemia uncontrolled Diabetes mellitus type 2 History of DVT History of protein TR[employer]IT [employer]PER[employer] deficiency Hospital Course: Hospital Course: 59 year old with a past medical history of protein C deficiency, DVTs and diabetes type 2 now presenting the emergency department complaining of new onset of left calf pain and swelling. Patient states that over the last 2 weeks he is having worsening sensation of pain in the left posterior calf. Over the last week has noted a cord in the left posterior calf with worsening pain and swelling in the area. States that he has been on Xarelto and he denies missing any doses. Denies any chest pain, shortness of breath, dizziness or lightheadedness. Admitted for further treatment. Given fluids and his kidney function and electrolytes improved. Seen by hematology and these are Dr Pool's Recommendations: -Given reported history of protein C deficiency and recurrent DVT, would agree with definite anticoagulation -I discussed the patient is concerns of kidney and liver damage with Xarelto. We discussed the literature regarding Xarelto does not support any concern for liver and kidney damage. We discussed the potential alternative of lowering dose resulted 10 mg daily after resolution of his acute DVT to minimize bleeding risk since that is one of his concerns. -Recommend discharging on Xarelto 20 mg daily. Patient is agreeable to taking this at this dosage -Recommend outpatient follow-up with hematology clinic for continuation of care -We will plan on retesting protein C and protein tests to confirm diagnosis. He may benefit from lower extremity angiography to exclude May Thurner syndrome if hypercoagulable work-up is negative given recurrent left lower extremity clots Disposition: Disposition/Orders: D/C to Home Activity: Activity: Resume previous activity Diet: Diet: Cardiac Medications: Home Meds Active Scripts Rivaroxaban (XARELTO) 20 Mg Tablet, 20 MG PO DAILY for 30 Days, #30 TAB 2 Refills Prov:FIONA WANG MD 01/08/18 Reported Medications Gabapentin (GABAPENTIN ) 300 Mg Capsule, 300 MG PO TID for NEUROGENIC PAIN, CAP 08/05/20 Insulin Aspart (NOVOLOG FLEXPEN) 100 Unit/1 Ml Insuln.pen, 18 UNIT SQ TIDBFRMEAL , SYR 10/28/17 Allopurinol (ALLOPURINOL) 300 Mg Tablet, 1 TAB PO DAILY, #30 TAB 5 Refills 10/28/17 Discontinued Scripts Oxycodone/Apap 10-325 (PERCOCET 10-325 MG TABLET ) 1 Each Tablet, 1 TAB PO Q4- 6HRS PRN for PAIN, #25 TAB Prov:FIONA WANG MD 01/08/18 Scheduled Allopurinol (Allopurinol), 1 TAB PO DAILY, (Reported) Gabapentin (Gabapentin ), 300 MG PO TID, (Reported) Insulin Aspart (Novolog Flexpen), 18 UNIT SQ TIDBFRMEAL, (Reported) Rivaroxaban (Xarelto), 20 MG PO DAILY Discontinued Medications Oxycodone/Apap 10-325 (Percocet 10-325 Mg Tablet ), 1 TAB PO Q4-6HRS PRN for PAIN Total Time: Total Time: Total time spent was 45 minutes in preparing scripts, discharge planning with SW and RN, and preparing this discharge summary. Patient seen and examined on day of discharge. Justicifation of Admission Dx: Justifications for Admission: Justification of Admission Dx: Yes Acute Renal Failure: 3-Fold Rise in Serum Crea VALERIANO SCHULTE MD Aug 07, 2020 18:09
== END 2020-08-06 16:10 | disposition home or self-care (01) | DRG 299 ==
LOC: ER 22:07 → 4 NORTH 08-05 00:01
PROVIDERS: ADMIT Family Medicine; ATTEND Family Medicine
DX: I82.412 Acute embolism and thrombosis of left femoral vein (principal); N17.0 Acute kidney failure with tubular necrosis; E87.1 Hypo-osmolality and hyponatremia; I82.432 Acute embolism and thrombosis of left popliteal vein; I82.452 Acute embolism and thrombosis of left peroneal vein; I82.442 Acute embolism and thrombosis of left tibial vein; I82.812 Embolism and thrombosis of superficial veins of left lower extremity; I10 Essential (primary) hypertension; E78.5 Hyperlipidemia, unspecified; E11.40 Type 2 diabetes mellitus with diabetic neuropathy, unspecified; E11.65 Type 2 diabetes mellitus with hyperglycemia; F17.200 Nicotine dependence, unspecified, uncomplicated; E87.8 Other disorders of electrolyte and fluid balance, not elsewhere classified; E86.9 Volume depletion, unspecified; D50.9 Iron deficiency anemia, unspecified; R74.01 Elevation of levels of liver transaminase levels; G62.9 Polyneuropathy, unspecified; M10.9 Gout, unspecified; Z86.718 Personal history of other venous thrombosis and embolism; Z82.49 Family history of ischemic heart disease and other diseases of the circulatory system; Z79.01 Long term (current) use of anticoagulants; Z79.899 Other long term (current) drug therapy; Z90.49 Acquired absence of other specified parts of digestive tract
CPT/HCPCS: 36415; 80048; 80053; 82962; 83735; 85025; 85027; 85520; 85610; 85730; 93971; 96374; 99285; J1644; J1815; J2270; J2405; J3490; G0378; Q0163

== ENCOUNTER 2020-08-17 01:11 | Inpatient (IN) | payer MEDICARE, OTHER ==
[~2020-08-17] VITALS: Ht 175.3 cm; Wt 88.9 kg
[~2020-08-17 01:11] MED LIST changes: +GABA300C18 PO
--- NOTE | 2020-08-17 01:49 | PHYS DOC ---
Past Medical History Past Medical History: Diabetes-Type II, DVT, Other Additional Past Medical Histor: gout,NEUROPATHY,MASS L BREAST/NIPPLE Past Surgical History: Other Additional Past Surgical Histo: IVC Filter,hemorhoidectomy,IVC Removal 04/2018 Smoking Status: Former Smoker Alcohol Use: Heavy Additional Information: DRINKS 6 PACK OF BEER DAILY Drug Use: None General Adult EDM: Chief Complaint: OTHER COMPLAINTS HPI: HPI: 59-year-old male past medical history significant for protein C deficiency and left lower extremity DVT on Xarelto, presents to the ED with complaints of lying down and "cannot breathe, cutting off my air," worse when turning his head side to side stating he was seen here in the ED on August 04 and diagnosed with a left lower extremity DVT. Is on lifelong Xarelto. Reports IVC filter was removed because it broke. States before his recent DVT diagnosis had not had a blood clot in 3 years. Patient is concerned stating, " they did not do everything on August 04, I'm worried for a DVT." States he had just eaten pizza and drink a lot of Mountain Dew when he started having midsternal chest pain-lied down after eating. Patient denies any cocaine use or smoking marijuana (although he denies this around his "friend" who he consented to share medical information with, he lives with this female individual). Review of Systems: Review of Systems: Constitutional: Denies fever or chills. [] Eyes: Denies change in visual acuity. [] HENT: Denies nasal congestion or sore throat. [] Respiratory: Denies cough or shortness of breath. [] Cardiovascular: Denies syncope, hemoptysis or edema. [] GI: Denies abdominal pain, nausea, vomiting, bloody stools or diarrhea. [] : Denies dysuria. [] Musculoskeletal: Denies back pain or joint pain. [] Integument: Denies rash. [] Neurologic: Denies headache, focal weakness or sensory changes. [] Endocrine: Denies polyuria or polydipsia. [] Lymphatic: Denies swollen glands. [] Psychiatric: Denies depression or anxiety. [] Heart Score: C/O Chest Pain: Yes HEART Score for Chest Pain: HEART Score for Chest Pain Response (Comments) Value History Slighlty/Non-Suspicious 0 ECG Nonspecific Repolarizatio 1 Age >45 - < 65 1 Risk Factors 1 or 2 Risk Factors 1 Troponin < Normal Limit 0 Total 3 Risk Factors: Risk Factors: DM, Current or recent (<one month) smoker, HTN, HLP, family history of CAD, obesity. Risk Scores: Score 0 - 3: 2.5% MACE over next 6 weeks - Discharge Home Score 4 - 6: 20.3% MACE over next 6 weeks - Admit for Clinical Observation Score 7 - 10: 72.7% MACE over next 6 weeks - Early Invasive Strategies Allergies: Allergies: Allergies Coded Allergies Type Severity Reaction Last Updated Verified No Known Drug Allergies 10/13/18 No Physical Exam: PE: Constitutional: Well developed, well nourished, no acute distress, non-toxic appearance. HENT: Normocephalic, atraumatic, Eyes: EOMI, conjunctiva normal, no discharge. Neck: Normal range of motion, supple, Cardiovascular: S1/2 present, tachycardic 105 on arrival, Lungs & Thorax: Speaking in full sentences, bilateral equal chest rise, no tachypnea or increased work of breathing Abdomen: soft, no tenderness, Skin: Warm, dry, no erythema, no rash. [] Back: No tenderness, no CVA tenderness. [] Extremities: No tenderness, no cyanosis, right lower extremity more swollen than the left lower extremity but patient states it has been this way for over a decade Neurologic: Alert and oriented X 3, normal motor function, normal sensory function, no focal deficits noted. [] Psychologic: Affect normal, judgement normal, mood normal. [] Current Patient Data: Vital Signs: Vital Signs Date Time Temp Pulse Resp B/P (MAP) Pulse Ox O2 Delivery O2 Flow Rate FiO2 08/17/20 01:17 98.4 105 20 140/75 (96) 97 Room Air 98.4 EKG: EKG: Sinus rhythm at 97 bpm, left axis deviation, normal intervals, T wave inversion lead III, no ST elevations or ST depressions Radiology/Procedures: Radiology/Procedures: IMAGING REPORT Signed PATIENT: MALACHI KHAN ACCOUNT: [id number] : 1960 LOCATION: ER AGE: 59 SEX: M EXAM STATUS: PRE ER ORD. PHYSICIAN: RANJIT SEARS DO REASON: soa, h/o dvt, r/o pe, OMNI 350, 100 ML IV PROCEDURE: CT ANGIOGRAPHY CHEST CT angiogram of the chest with contrast: Reason for examination: Short of breath. History of DVT. Evaluate for pulmonary embolus. Comparison is made to previous study dated 01/18/2018. Helical images were obtained through the or chest with intravenous administration of 100 cc Omnipaque 350 using PE protocol. 3-D MIPS reconstruction was performed in sagittal and coronal planes. Exposure: One or more of the following individualized dose reduction techniques were utilized for this examination: 1. Automated exposure control 2. Adjustment of the mA and/or kV according to patient size 3. Use of iterative reconstruction technique. No abnormality seen at the thyroid gland. The trachea and mainstem bronchi show no intraluminal lesions. No abnormality seen at the esophagus. The thoracic aorta shows no aneurysmal dilatation or dissection. The heart size is normal with no pericardial effusion. There is no evidence of pulmonary embolus. No acute infiltrates, pleural effusions or pneumothorax are seen. No acute infiltrates, pleural effusions or pneumothorax are seen. There is diffuse fatty infiltration in the liver without a focal lesion. No abnormality seen at the spleen or adrenal glands. There are probable cysts at the upper pole of the right kidney measuring approximately 2 cm in size. No acute bony abnormalities are seen in the thorax but there are some hypertrophic changes at the thoracic spine. Note is made of bilateral gynecomastia which is more prominent on the left than right and has progressed since previous exam. IMPRESSION: No evidence of pulmonary embolus. Acute abnormality seen in the chest. Diffuse fatty infiltration in the liver. 2 cm cystic-appearing lesion in the upper pole right kidney. Bilateral gynecomastia, left greater than right. Electronically signed by: Faby Jean MD (08/17/2020 3:18 AM) [facility] and SIGNED BY: FABY JEAN MD DATE: 08/17/20 [id number] 0 Course & Med Decision Making: Course & Med Decision Making Pertinent Labs and Imaging studies reviewed. (See chart for details) Concern for cocaine chest pain. Suspect patient was not forthcoming given his friend being at bedside. Benzo given in ED. No STEMI on EKG. First troponin negative. Will admit for further medical management and cardiology consultation. Patient stable at time of mission agrees with this plan. I have spoken with the patient and/or caregivers. I have explained the patient's condition, diagnosis and treatment plan based on the information available to me at this time. I have answered the patient's and/or caregivers questions and answered any concerns. The patient and/or caregivers have as good an understanding of the patient's diagnosis, condition and treatment plan as can be expected at this point. The patient has been stabilized within the capability of the emergency department. The patient will be transported for further care and management or will be moved to an observation or inpatient service. I have communicated with the staff or medical practitioner taking over this patient's care. Dragon Disclaimer: Dragon Disclaimer: This electronic medical record was generated, in whole or in part, using a voice recognition dictation system. Departure Departure Impression: Primary Impression: Chest pain Additional Impression: Cocaine abuse Disposition: ADMITTED INPT THIS HOSP Admitting Physician: ROOSEVELT (Dr. Potter) Condition: STABLE Referrals: KIMANI FOWLER (PCP) RANJIT SEARS DO Aug 17, 2020 01:49
[2020-08-17 01:55] LABS: BASO % 1 % (0-3); EOS # 0.1 x10^3/uL (0.0-0.7); EOS % 1 % (0-3); HEMATOCRIT 38.8 % (39.0-53.0); HEMOGLOBIN 12.4 g/dL (13.0-17.5); LYMPH # 2.2 x10^3/uL (1.0-4.8); LYMPH % 40 % (24-48); MEAN CORPUSCULAR HEMOGLOBIN 25 pg (25-35); MEAN CORPUSCULAR HGB CONC 32 g/dL (31-37); MEAN CORPUSCULAR VOLUME 77 fL (79-100); MONO # 0.5 x10^3/uL (0.0-1.1); MONO % 10 % (0-9); NEUT # 2.7 x10^3/uL (1.8-7.7); NEUT % 49 % (31-73); PLATELET COUNT 121 x10^3/uL (140-400); RED BLOOD COUNT 5.06 x10^6/uL (4.30-5.70); RED CELL DISTRIBUTION WIDTH 14.2 % (11.5-14.5); WHITE BLOOD COUNT 5.5 x10^3/uL (4.0-11.0)
[2020-08-17 02:04] LABS: CALCIUM 9.1 mg/dL (8.5-10.1); CREATININE 1.2 mg/dL (0.7-1.3); GFR 75.2; PROTHROMBIN TIME PATIENT 15.7 SEC (11.7-14.0)
--- NOTE | 2020-08-17 02:09 | EKG ---
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
[2020-08-17 02:10] LABS: ALBUMIN 3.9 g/dL (3.4-5.0); MAGNESIUM 2.2 mg/dL (1.8-2.4); TOTAL BILIRUBIN 0.3 mg/dL (0.2-1.0); TOTAL PROTEIN 7.9 g/dL (6.4-8.2)
[2020-08-17] MEDS ORDERED: CONTRAST GIVEN. MC PRN (02:15)
[2020-08-17] MEDS ORDERED: IOHEXOL 350 MG/ML 100 ML VIAL. IV ONE (02:15)
[2020-08-17] MEDS ORDERED: LIDO:MAALOX 1:1 20 ML SINGLE DOSE. SWSW ONE (02:15)
[2020-08-17 03:03] LABS: AMPHETAMINE/METHAMPHETAMINE NEG (NEG); BARBITURATES NEG (NEG); BENZODIAZEPINES NEG (NEG); CANNABINOIDS NEG (NEG); COCAINE POS (NEG); METHADONE NEG (NEG); OPIATES NEG (NEG); PHENCYCLIDINE NEG (NEG)
--- NOTE | 2020-08-17 03:21 | RAD ---
CT angiogram of the chest with contrast: Reason for examination: Short of breath. History of DVT. Evaluate for pulmonary embolus. Comparison is made to previous study dated 01/18/2018. Helical images were obtained through the or chest with intravenous administration of 100 cc Omnipaque 350 using PE protocol. 3-D MIPS reconstruction was performed in sagittal and coronal planes. Exposure: One or more of the following individualized dose reduction techniques were utilized for thi s examination: 1. Automated exposure control 2. Adjustment of the mA and/or kV according to patient size 3. Use of iterative reconstruction technique. No abnormality seen at the thyroid gland. The trachea and mainstem bronchi show no intraluminal lesio ns. No abnormality seen at the esophagus. The thoracic aorta shows no aneurysmal dilatation or dissec tion. The heart size is normal with no pericardial effusion. There is no evidence of pulmonary embolu s. No acute infiltrates, pleural effusions or pneumothorax are seen. No acute infiltrates, pleural ef fusions or pneumothorax are seen. There is diffuse fatty infiltration in the liver without a focal lesion. No abnormality seen at the s pleen or adrenal glands. There are probable cysts at the upper pole of the right kidney measuring zulma roximately 2 cm in size. No acute bony abnormalities are seen in the thorax but there are some hypert rophic changes at the thoracic spine. Note is made of bilateral gynecomastia which is more prominent on the left than right and has progressed since previous exam. IMPRESSION: No evidence of pulmonary embolus. Acute abnormality seen in the chest. Diffuse fatty infiltration in the liver. 2 cm cystic-appearing lesion in the upper pole right kidney. Bilateral gynecomastia, left greater than right. Electronically signed by: Vika Murray MD (08/17/2020 3:18 AM) [facility]
[2020-08-17 05:33] VITALS: BP 134/80
[2020-08-17] MEDS ORDERED: OXYC1TAB22 PO (05:39)
[2020-08-17 07:28] VITALS: BP 106/57
[2020-08-17] MEDS ORDERED: oxyCODONE/APAP 10/325 1 TAB TABLET PO PRN (10:15)
[2020-08-17 10:51] VITALS: BP 128/79
--- NOTE | 2020-08-17 10:58 | PDOC ---
GENERAL General: Same day summary [id number] VITAL SIGNS Vital Signs/I&O: Vital Signs Date Time Temp Pulse Resp B/P (MAP) Pulse Ox O2 Delivery O2 Flow Rate FiO2 08/17/20 10:51 98.3 84 18 128/79 (95) 98 Room Air 98.3 l I & O 08/16/20 08/16/20 08/17/20 15:00 23:00 07:00 Intake Total 0 ml Balance 0 ml ALLERGIES Allergies: Allergies Coded Allergies Type Severity Reaction Last Updated Verified No Known Drug Allergies 10/13/18 No MEDS Medications: Current Medications Medications (Trade) Dose Ordered Sig/Donte Route PRN Reason Start Time Stop Time Status Last Admin Dose Admin Iohexol (Omnipaque 350 Mg/ml) 100 ml 1X ONCE IV 08/17/20 02:15 08/17/20 02:16 DC 08/17/20 02:30 Multi-Ingredient Mouthwash/Gargle (Gi Cocktail) 20 ml 1X ONCE SWSW 08/17/20 02:15 08/17/20 02:16 DC 08/17/20 02:45 Lorazepam (Ativan Inj) 1 mg 1X ONCE IVP 08/17/20 04:15 08/17/20 04:20 DC 08/17/20 04:48 LAB Lab: Laboratory Tests Test 08/17/20 01:25 08/17/20 02:48 08/17/20 05:18 08/17/20 07:40 White Blood Count 5.5 x10^3/uL (4.0-11.0) Red Blood Count 5.06 x10^6/uL (4.30-5.70) Hemoglobin 12.4 g/dL (13.0-17.5) L Hematocrit 38.8 % (39.0-53.0) L Mean Corpuscular Volume 77 fL (79-100) L Mean Corpuscular Hemoglobin 25 pg (25-35) Mean Corpuscular Hemoglobin Concent 32 g/dL (31-37) Red Cell Distribution Width 14.2 % (11.5-14.5) Platelet Count 121 x10^3/uL (140-400) L Neutrophils (%) (Auto) 49 % (31-73) Lymphocytes (%) (Auto) 40 % (24-48) Monocytes (%) (Auto) 10 % (0-9) H Eosinophils (%) (Auto) 1 % (0-3) Basophils (%) (Auto) 1 % (0-3) Neutrophils # (Auto) 2.7 x10^3/uL (1.8-7.7) Lymphocytes # (Auto) 2.2 x10^3/uL (1.0-4.8) Monocytes # (Auto) 0.5 x10^3/uL (0.0-1.1) Eosinophils # (Auto) 0.1 x10^3/uL (0.0-0.7) Basophils # (Auto) 0.0 x10^3/uL (0.0-0.2) Prothrombin Time 15.7 SEC (11.7-14.0) H Prothrombin Time INR 1.3 (0.8-1.1) H Activated Partial Thromboplast Time 32 SEC (24-38) Sodium Level 137 mmol/L (136-145) Potassium Level 4.0 mmol/L (3.5-5.1) Chloride Level 100 mmol/L (98-107) Carbon Dioxide Level 25 mmol/L (21-32) Anion Gap 12 (6-14) Blood Urea Nitrogen 19 mg/dL (8-26) Creatinine 1.2 mg/dL (0.7-1.3) Estimated GFR (Cockcroft-Gault) 75.2 BUN/Creatinine Ratio 16 (6-20) Glucose Level 115 mg/dL (70-99) H Calcium Level 9.1 mg/dL (8.5-10.1) Magnesium Level 2.2 mg/dL (1.8-2.4) Total Bilirubin 0.3 mg/dL (0.2-1.0) Aspartate Amino Transferase (AST) 43 U/L (15-37) H Alanine Aminotransferase (ALT) 122 U/L (16-63) H Alkaline Phosphatase 96 U/L (46-116) Troponin I Quantitative < 0.017 ng/mL (0.000-0.055) < 0.017 ng/mL (0.000-0.055) < 0.017 ng/mL (0.000-0.055) AV-Wpb-K-Type Natriuretic Peptide 20 pg/mL (0-124) Total Protein 7.9 g/dL (6.4-8.2) Albumin 3.9 g/dL (3.4-5.0) Albumin/Globulin Ratio 1.0 (1.0-1.7) Ethyl Alcohol Level < 10 mg/dL (0-10) Urine Opiates Screen Neg (NEG) Urine Methadone Screen Neg (NEG) Urine Barbiturates Neg (NEG) Urine Phencyclidine Screen Neg (NEG) Urine Amphetamine/Methamphetamine Neg (NEG) Urine Benzodiazepines Screen Neg (NEG) Urine Cocaine Screen Pos (NEG) Urine Cannabinoids Screen Neg (NEG) Urine Ethyl Alcohol Neg (NEG) Laboratory Tests 08/17/20 01:25 Laboratory Tests 08/17/20 01:25 Justifications for Admission Other Justification YEISON BARDALES MD Aug 17, 2020 10:58
[2020-08-17] MEDS ORDERED: ALLOPURINOL 300 MG TABLET. PO SCH (11:00)
--- NOTE | 2020-08-17 11:28 | SSS ---
ADMIT DATE: 08/17/2020 SAME-DAY SUMMARY HISTORY OF PRESENT ILLNESS: The patient is a 59-year-old man who has not had continuity primary care in some time. He does see a Dr. Hodge in a freestanding clinic for his pain medication and that physician has been also filling his continuity medications. Unfortunately, his chronic medical issues have escalated and he has recognized that he needs to engage more fully in care. He was seen in the Emergency Department here at [facility] 2 weeks ago and diagnosed with a recurrent left lower extremity DVT. The patient has been on Xarelto for some time for protein C deficiency and has had several clots in his life, the most persistent one that has given him trouble was his right lower extremity DVT. The patient tells me that he has pending appointments with Hematology to discuss his anticoagulation plan, Endocrinology at [facility], and he has started following with Hepatology at [facility] for his known cirrhosis. The patient is very anxious to discharge this morning, tells me he is feeling better relative to what brought him in and he does not want to wait for further consultation. The patient presented to the Emergency Department last night with mid substernal chest pain and was concerned that he had a pulmonary embolism given his clotting predisposition. He was happy that a CT chest was negative and he wanted to go home, but he was convinced to stay given is cocaine positive tox screen and high risk for heart disease. The patient just wants to leave and tells me that he will be engaging with his various subspecialists closely. He has not seen Cardiology in the past. His initial cardiac screen here has been unremarkable for acute coronary syndrome. The patient tells me that his mid chest pressure has resolved overnight with just expectant management. He denies any palpitations, nausea, vomiting, fever, chills, or any other new specific constitutional symptoms. All systems reviewed and otherwise negative. PAST MEDICAL HISTORY: 1. Longstanding cocaine abuse and it sounds like alcoholism as well. He tells me that he is turning his life around and is not going to be taking these substances any further at all. 2. Protein C deficiency with multiple blood clots historically. He has a pending visit with Hematology at [facility] this week to discuss his anticoagulation plan given that he did have a left lower extremity DVT through Xarelto. He tells me he does not miss his Xarelto. 3. Chronic pain for which he is in treatment with Dr. Hodge, stable on his medicines, he says. 4. Cirrhosis, likely secondary to his alcoholism, follows with [facility]. 5. Uncontrolled diabetes, tells me his last A1c was 13. He is planning on seeing Endocrinology at this week. MEDICATIONS: Please see the medication reconciliation form. SOCIAL HISTORY: The patient is single. He lives independently in his own home. He is not working currently. He has been abusing cocaine and alcohol for some time. He plans on staying quit, is not interested in speaking with anybody about rehabilitation programs. He does not smoke tobacco. FAMILY HISTORY: Notable for that his parents and siblings all before the age of 60 of various causes. PHYSICAL EXAMINATION: VITAL SIGNS: Reviewed since admission and are notable for that the patient has been afebrile, blood pressure has been 100s/60s, heart rate is in the 80s-90s and regular. He is breathing comfortably and saturating normally on room air. GENERAL: He is a pleasant 59-year-old man, alert and oriented x 3, in no acute distress. HEENT: Unremarkable for acute abnormality. NECK: Soft and supple. No adenopathy or thyromegaly noted. CHEST: Clear to auscultation. HEART: S1, S2 normal. Regular rate and rhythm. No murmurs or gallops are noted. ABDOMEN: Obese, soft, nontender, nondistended. No masses or organomegaly noted. EXTREMITIES: Unremarkable for acute abnormality. LABORATORY DATA AND OTHER STUDIES: Serum white count is 5.5, hemoglobin of 12.4, platelet count of 121. Chemistry panel notable for AST and ALT of 43 and 122. Serum glucose is 115, bicarbonate is 25. Electrolytes are unremarkable. Troponins are negative x 3. Coag notable for mildly elevated INR at 1.3, PT is 15.7. Tox screen is notable for that he is cocaine positive. His alcohol is undetectable. Chest CT is unremarkable for acute abnormality. He does have a 2 cm cystic appearing lesion in the upper pole of his right kidney. Bilateral gynecomastia left greater than right. EKG is reported as normal to the Emergency Department. I am unable to pull that image up currently. ASSESSMENT, PLAN, IMPRESSION: A 59-year-old man with protein C deficiency and multiple blood clots historically with recent recurrent left lower extremity DVT diagnosed in the Emergency Department 2 weeks ago. The patient was concerned that he had pulmonary embolism related to that. That lower extremity DVT 2 weeks ago happened despite full adherence to Xarelto, he tells me. He does have a pending appointment with Hematology this week at [facility]. The patient seems very motivated to engage with his subspecialty team and those appointments have already been arranged at [facility]. He tells me that he is very motivated to stay completely quit from cocaine and alcohol and has already made arrangements to clear out his apartment of any items that may lead him back in that direction. He is not interested in speaking with anyone from rehab today. I have spoken with Dr. Medel and we briefly reviewed his chart and he agrees that he is safe for discharge without a Cardiology consult here. He certainly does need risk factor reduction and cardiovascular prevention assessment as an outpatient. Observation status was most appropriate in this case. FINAL DIAGNOSIS: Atypical chest pain, likely secondary to his cocaine use that has now resolved. YEISON BARDALES MD DR: RENETTA/halley JOB#: [id number] / [id number]
[2020-08-17] MEDS ORDERED: INSULIN LISPRO 300 UNITS/3 ML VIAL. SQ SCH (12:00)
[2020-08-17] MEDS ORDERED: GABAPENTIN 300 MG CAPSULE. PO SCH (14:00)
[2020-08-17] MEDS ORDERED: RIVAROXABAN 10 MG TABLET. PO SCH (17:00)
== END 2020-08-17 12:15 | disposition home or self-care (01) | DRG 918 ==
LOC: ER 01:11 → 2 SOUTH 04:51
PROVIDERS: ADMIT Family Medicine; ATTEND Family Medicine
DX: T40.5X1A Poisoning by cocaine, accidental (unintentional), initial encounter (principal); D68.59 Other primary thrombophilia; F14.10 Cocaine abuse, uncomplicated; K74.60 Unspecified cirrhosis of liver; K76.0 Fatty (change of) liver, not elsewhere classified; E11.40 Type 2 diabetes mellitus with diabetic neuropathy, unspecified; G89.29 Other chronic pain; M10.9 Gout, unspecified; F10.20 Alcohol dependence, uncomplicated; Y90.9 Presence of alcohol in blood, level not specified; R07.89 Other chest pain; Y92.89 Other specified places as the place of occurrence of the external cause; Z86.718 Personal history of other venous thrombosis and embolism; Z87.891 Personal history of nicotine dependence
CPT/HCPCS: 36415; 71275; 80053; 80307; 83735; 83880; 84484; 85025; 85610; 85730; 93005; 96374; 99285; G0480; J1815; J2060; Q9967; G0378

== ENCOUNTER 2021-01-10 00:14 | Emergency (ER) | payer MEDICARE, OTHER ==
[2021-01-10] MEDS ORDERED: ONDANSETRON PF 4 MG/2 ML VIAL. IVP ONE (02:15)
== END 2021-01-10 00:35 | disposition left against medical advice (07) ==
LOC: ER 00:14
DX: R06.02 Shortness of breath (principal); Z53.21 Procedure and treatment not carried out due to patient leaving prior to being seen by health care provider

== ENCOUNTER 2021-01-12 02:58 | Emergency (ER) | payer MEDICARE, OTHER ==
[~2021-01-12] VITALS: Ht 180.3 cm; Wt 81.8 kg
--- NOTE | 2021-01-12 04:15 | PHYS DOC ---
Past Medical History Past Medical History: Diabetes-Type II, DVT, Other Additional Past Medical Histor: gout,NEUROPATHY,MASS L BREAST/NIPPLE, ULCER, COLON POLYPS, IMPOTENCE, Past Surgical History: Other Additional Past Surgical Histo: IVC Filter,hemorhoidectomy,IVC Removal 04/2018, CARDIAC CATH Smoking Status: Current Every Day Smoker Alcohol Use: Heavy Drug Use: None General Adult EDM: Chief Complaint: PSYCH EVALUATION HPI: HPI: Patient is a 60 year old male presents to the emergency department requesting a drug screen. Patient states this evening around 2200 hrs. he smoked what he was told was crack cocaine. Patient does not believe that he smoked cocaine and would like a urine drug screen. Review of Systems: Review of Systems: Constitutional: Denies fever or chills. [] Eyes: Denies change in visual acuity. [] HENT: Denies nasal congestion or sore throat. [] Respiratory: Denies cough or shortness of breath. [] Cardiovascular: Denies chest pain or edema. [] GI: Denies abdominal pain, nausea, vomiting, bloody stools or diarrhea. [] : Denies dysuria. [] Musculoskeletal: Denies back pain or joint pain. [] Integument: Denies rash. [] Neurologic: Denies headache, focal weakness or sensory changes. [] Endocrine: Denies polyuria or polydipsia. [] Lymphatic: Denies swollen glands. [] Psychiatric: Denies depression or anxiety. [] Heart Score: C/O Chest Pain: N/A Risk Factors: Risk Factors: DM, Current or recent (<one month) smoker, HTN, HLP, family history of CAD, obesity. Risk Scores: Score 0 - 3: 2.5% MACE over next 6 weeks - Discharge Home Score 4 - 6: 20.3% MACE over next 6 weeks - Admit for Clinical Observation Score 7 - 10: 72.7% MACE over next 6 weeks - Early Invasive Strategies Allergies: Allergies: Allergies Coded Allergies Type Severity Reaction Last Updated Verified No Known Drug Allergies 10/13/18 No Physical Exam: PE: General: alert, no acute distress. Skin: warm, dry and intact, no erythema, no rash. HENT: bilateral external ears normal, oropharynx moist, nose normal. Head:: Normocephalic, atraumatic. Neck: Trachea midline. Eyes: EOMI, Normal conjunctiva, No drainage CARDIOVASCULAR: Regular rate and rhythm RESPIRATORY: No respiratory distress Back: Full range of motion. MUSCULOSKELETAL: Full range of motion of bilateral upper and lower extremities. GASTROINTESTINAL: Abdomen soft without rebound or guarding. NEUROLOGICAL: Alert and noted to person, place and time. No neurological deficits observed Psychiatric: Cooperative. Current Patient Data: Vital Signs: Vital Signs Date Time Temp Pulse Resp B/P (MAP) Pulse Ox O2 Delivery O2 Flow Rate FiO2 01/12/21 03:20 98.0 89 20 145/82 (95) 100 Room Air 98.0 EKG: EKG: [] Radiology/Procedures: Radiology/Procedures: [] Course & Med Decision Making: Course & Med Decision Making Pertinent Labs and Imaging studies reviewed. (See chart for details) [] Dragon Disclaimer: Dragon Disclaimer: This electronic medical record was generated, in whole or in part, using a voice recognition dictation system. Departure Departure Impression: Primary Impression: Drug abuse Additional Impression: Drug abuse, cocaine type Referrals: KIMANI FOWLER (PCP) HARIKA STALEY DO Jan 12, 2021 04:15
[2021-01-12 05:25] VITALS: BP 139/82
[2021-01-12 05:28] LABS: AMPHETAMINE/METHAMPHETAMINE NEG (NEG); BARBITURATES NEG (NEG); BENZODIAZEPINES NEG (NEG); CANNABINOIDS NEG (NEG); COCAINE POS (NEG); METHADONE NEG (NEG); OPIATES NEG (NEG); PHENCYCLIDINE NEG (NEG)
== END 2021-01-12 06:22 | disposition home or self-care (01) ==
LOC: ER 02:58
DX: F14.10 Cocaine abuse, uncomplicated (principal); E11.40 Type 2 diabetes mellitus with diabetic neuropathy, unspecified; Z86.718 Personal history of other venous thrombosis and embolism; F17.200 Nicotine dependence, unspecified, uncomplicated
CPT/HCPCS: 80307; 99283